=== PATIENT | male | born 1975 | race Two or more races ===

== ENCOUNTER 2024-07-21 01:27 | Emergency (ER) | payer OTHER ==
[~2024-07-21] VITALS: Ht 170.2 cm; Wt 158.5 kg
[2024-07-21 01:40] VITALS: PULSE 125; RESP 17; O2SAT 91
[2024-07-21] MEDS: levETIRAcetam 1000 mg/100ml 100 ML IV ONE (02:00)
--- NOTE | 2024-07-21 02:19 | ED.PDOC ---
HPI (NEURO) HPI Comments 49-year-old male came to ER via EMS for seizures. Per EMS, patient does have history of seizures, takes Keppra for it. Last seizure episode was May 2024. Patient had a witnessed seizure earlier today by family members, lasting approximately 30 seconds. 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 Information Source: Emergency Med Personnel Mode of Arrival: EMS Severity: Moderate Dizziness/Weakness Severity: Unable to do activities Headache Severity: Moderate Timing: Minutes Duration: Minutes Prehospital treatment: None Seizure Quality: Grand mal Headache Quality: Throbbing, Aching Headache Location: Generalized Weakness Location: Generalized Numbness Location: Generalized Seizure Location: Generalized Onset: With light exertion Circumstances: Spontaneous Symptoms: Weakness Before: Normal During: LOC After: Confusion History of: Seizure Disorder Modifying factors: Nothing Associated Signs and Symptoms: Altered Mental Status Past Medical History PAST MEDICAL HISTORY: Seizures Surgical History: Pt Confused Family History Family History: Pt Confused Social History Smoker: Pt Confused Alcohol: Pt Confused Drugs: Pt Confused Lives In: Home Unable to Obtain due to: Altered Mental Status, Other (Patient is postictal) Physical Exam General Appearance: No Apparent Distress, Normal HEENT: Normal ENT Inspection, Pharynx Normal, TMs Normal Neck: Full Range of Motion, Non-Tender, Normal, Normal Inspection Respiratory: Chest Non-Tender, Lungs Clear, No Accessory Muscle Use, No Respiratory Distress, Normal Breath Sounds Cardiovascular: No Edema, No JVD, No Murmur, No Gallop, Normal Peripheral Puls es, Regular Rate/Rhythm Breast Exam: Deferred Gastrointestinal: No Organomegaly, Non Tender, No Pulsatile Mass, Normal Bowel Sounds, Soft Genitalia: Deferred Pelvic: Deferred Rectal: Deferred Extremities: No calf tenderness, Normal capillary refill, Normal inspection, Normal range of motion, Non-tender, No pedal edema Musculoskeletal : Apperance: Normal Neurologic: Alert, straddle bug driver II-XII nml as Tested, No Motor Deficits, Normal Affect, Normal Mood, No Sensory Deficits Cerebellar Function: Normal Reflexes: Normal Skin: Dry, Normal Color, Warm Lymphatic: No Adenopathy Was a procedure done? Was a procedure done?: No Differential Diagnosis (SZ) Seizure: Psychogenic Seizure, CVA/TIA, Idiopathic, Encephalopathy, Epilepsy- Break Through, Epilepsy-Status X-Ray, Labs, Meds, VS Vital Signs Date Time Temp Pulse Resp B/P (MAP) Pulse Ox O2 Delivery O2 Flow Rate FiO2 07/21/24 17:00 100.3 07/21/24 16:00 100.3 95 20 125/86 (99) 92 100.3 07/21/24 14:00 86 13 127/86 (100) 94 07/21/24 12:45 91 07/21/24 12:00 98.8 88 17 141/78 (99) 92 98.8 07/21/24 10:00 100 15 131/82 (98) 98 07/21/24 09:00 91 18 142/84 (103) 96 07/21/24 08:00 101 18 128/83 (98) 95 07/21/24 07:19 114 94 Room Air* 0 21 07/21/24 07:19 114 18 129/85 (100) 94 07/21/24 07:19 99.4 99.4 07/21/24 07:00 107 26 141/84 (103) 95 07/21/24 05:00 114 23 100/72 (81) 96 07/21/24 01:49 124 07/21/24 01:47 98.7 67 18 131/85 (100) 96 07/21/24 01:40 98.7 125 17 116/64 (81) 91 98.7 07/21/24 01:40 125 17 91 Room Air* 0 21 Lab Test 07/21/24 16:55 07/21/24 11:55 07/21/24 06:37 Range/Units Influenza Type A Antigen Negative Negative Influenza Type B Antigen Negative Negative SARS-CoV-2 Antigen (Rapid) Negative NEGATIVE Troponin I High Sensitivity 10 9 </=54 ng/L White Blood Count 9.7 4.4-10.8 10^3/uL Red Blood Count 5.17 4.5-5.90 10^6/uL Hemoglobin 15.4 13.5-17.5 g/dL Hematocrit 46.1 41.0-53.0 % Mean Corpuscular Volume 89.3 80.0-100.0 fL Mean Corpuscular Hemoglobin 29.7 28.0-32.0 pg Mean Corpuscular Hemoglobin Concent 33.3 32.0-36.0 g/dL Red Cell Distribution Width 15.2 H 11.8-14.3 % Platelet Count 157 140-450 10^3/uL Mean Platelet Volume 9.0 6.9-10.8 fL Neutrophils (%) (Auto) 74.6 37.0-80.0 % Lymphocytes (%) (Auto) 9.8 L 10.0-50.0 % Monocytes (%) (Auto) 14.7 H 0.0-12.0 % Eosinophils (%) (Auto) 0.1 0.0-7.0 % Basophils (%) (Auto) 0.8 0.0-2.0 % Neutrophils # (Auto) 7.2 1.6-8.6 10 ^3/uL Lymphocytes # (Auto) 0.9 0.4-5.4 10 ^3/uL Monocytes # (Auto) 1.4 H 0-1.3 10 ^3/uL Eosinophils # (Auto) 0 0-0.8 10 ^3/uL Basophils # (Auto) 0.1 0-0.2 10 ^3/uL Nucleated Red Blood Cells 0.2 % Sodium Level 136 136-145 mmol/L Potassium Level 4.1 3.5-5.1 mmol/L Chloride Level 104 98-107 mmol/L Carbon Dioxide Level 20 20-31 mmol/L Anion Gap 12 5-15 Blood Urea Nitrogen 14 9-23 mg/dL Creatinine 1.78 H 0.700-1.30 mg/dL Glomerular Filtration Rate Calc 46 >90 mL/min BUN/Creatinine Ratio 7.9 L 10.0-20.0 Serum Glucose 113 H 74-106 mg/dL Calcium Level 9.5 8.7-10.4 mg/dL Current Medications Medications (Trade) Dose Ordered Sig/Daly Route Start Time Stop Time Status Last Admin Levetiracetam 100 ml @ 400 mls/hr ONCE ONCE IV 07/21/24 01:45 07/21/24 01:59 DC 07/21/24 02:00 Sodium Chloride 1,000 ml @ 1,000 mls/hr Q1H ONCE IV 07/21/24 05:30 07/21/24 06:29 DC 07/21/24 05:23 Lorazepam (Ativan Inj) 2 mg ONCE ONCE IV 07/21/24 06:30 07/21/24 06:31 DC 07/21/24 06:27 Sodium Chloride 1,000 ml @ 1,000 mls/hr Q1H ONCE IV 07/21/24 08:15 07/21/24 09:14 DC 07/21/24 08:52 Acetaminophen (Tylenol Tablet Or Capsule) 1,000 mg ONCE ONCE PO 07/21/24 16:30 07/21/24 16:31 DC 07/21/24 17:00 X-Ray, Labs, Meds, VS Comment Addendum by Dr. Earnestine Hairston: 49-year-old male with history of seizures on Keppra endorsed to me by Dr. Jean to re-evaluate after IV Keppra. Patient had a 2nd seizure during the administration of Keppra. This resolved with IV Ativan. On re-evaluation patient was noted to be febrile at 100.3. He also reported cough, congestion. CBC, basic metabolic panel and troponins were ordered and were remarkable for creatinine of 1.78. Influenza and COVID tests were negative. On re-evaluation, patient is alert, oriented, states he feels better, and is comfortable being discharged home. Temperature is normal. Hospitalization was considered, however patient had rapid improvement of his symptoms with treatment in the ED, and I no longer feel hospitalization is necessary. Patient appears stable for discharge with close outpatient follow up with his neurologist. I will prescribe antibiotics for possible bacterial re spiratory infection/bronchitis. Rx Augmentin, Tylenol, Tessalon Time of 1ST Reevaluation: 02:10 Reevaluation 1ST: Unchanged Time of 2ND Reevaluation: 17:58 Reevaluation 2ND: Improved Patient Education/Counseling: Diagnosis, Treatment Family Education/Counseling: No Family Present Departure 1 Departure Time of Disposition: 17:58 Impression: Primary Impression: Seizure Additional Impression: Acute cough Disposition: 01 HOME / SELF CARE / HOMELESS Condition: Stable Additional Instructions: Your blood tests were unremarkable. Your chest x-ray was normal. Your test for COVID and influenza were negative. I have prescribed antibiotics, cough medication, and medication to prevent fever. Follow up with your neurologist in 1-2 days. e-Prescriptions Benzonatate (Benzonatate) 200 Mg Cap 1 CAP PO Q8HP PRN, #30 CAP prn cough Prov: BELLA ZIMMERMAN MD 07/21/24 Acetaminophen (Tylenol Extra Strength) 500 Mg Tab 1000 MG PO Q6HP PRN, #30 TAB prn fever or pain Prov: BELLA ZIMMERMAN MD 07/21/24 Amoxicillin & Pot Clavulanate (AUGMENTIN TABLET) 875 Mg Tb 875 MG PO BID for 10 Days, #20 TAB Prov: BELLA ZIMMERMAN MD 07/21/24 Discharged With: Relative (Father) Critical Care Note Critical Care Time?: Yes (35 min-critical care time only) Stability Stability form required: No Heart Score Heart Score: Heart Score Response (Comments) Value History N/A 0 EKG N/A 0 Age N/A 0 Risk Factors N/A 0 Troponin N/A 0 Total 0 I personally scribed for EMERSON JEAN MD ([email or web address]) on 07/21/24 at 02:18. Electronically submitted by Jimi Whitehead ([facility]). EMERSON JEAN MD Jul 21, 2024 02:18 BELLA ZIMMERMAN MD Jul 21, 2024 18:03
[2024-07-21] MEDS: SODIUM CHLORIDE 0.9% 1,000 ML IV ONE ×2 (05:23→08:52)
[2024-07-21] MEDS: LORazepam 2MG/ML-1ML VIAL ONE (06:27)
[2024-07-21] MEDS: LORazepam 2MG/ML-1ML VIAL IV ONE (06:27)
[2024-07-21 07:09] LABS: Chloride 104 mmol/L (98-107); Potassium 4.1 mmol/L (3.5-5.1); Sodium 136 mmol/L (136-145)
[2024-07-21 07:10] LABS: Anion Gap 12 (5-15); Calcium 9.5 mg/dL (8.7-10.4)
[2024-07-21 07:12] LABS: Basophils # (auto) 0.1 10 ^3/uL (0-0.2); Basophils % (auto) 0.8 % (0.0-2.0); Eosinophils # (auto) 0 10 ^3/uL (0-0.8); Eosinophils % (auto) 0.1 % (0.0-7.0); Hematocrit 46.1 % (41.0-53.0); Hemoglobin 15.4 g/dL (13.5-17.5); Lymphocytes # (auto) 0.9 10 ^3/uL (0.4-5.4); Lymphocytes % (auto) 9.8 % (10.0-50.0); Mean Corpuscular Hemoglobin 29.7 pg (28.0-32.0); Mean Corpuscular Hgb Conc. 33.3 g/dL (32.0-36.0); Mean Corpuscular Volume 89.3 fL (80.0-100.0); Monocytes # (auto) 1.4 10 ^3/uL (0-1.3); Monocytes % (auto) 14.7 % (0.0-12.0); Neutrophils # (auto) 7.2 10 ^3/uL (1.6-8.6); Neutrophils % (auto) 74.6 % (37.0-80.0); Nucleated Red Blood Cells % 0.2 %; Platelet Count (auto) 157 10^3/uL (140-450); Red Blood Cells 5.17 10^6/uL (4.5-5.90); Red Cell Distribution Width 15.2 % (11.8-14.3); White Blood Cell 9.7 10^3/uL (4.4-10.8)
[2024-07-21 07:15] LABS: BUN/Creatinine Ratio 7.9 (10.0-20.0); Blood Urea Nitrogen 14 mg/dL (9-23)
[2024-07-21 07:18] LABS: Carbon Dioxide 20 mmol/L (20-31); Glucose 113 mg/dL (74-106)
[2024-07-21 07:19] VITALS: PULSE 114; O2SAT 94
[2024-07-21] MEDS: ACETAMINOPHEN 500 MG TAB or CAP PO ONE (17:00)
--- NOTE | 2024-07-21 17:16 | DVH ---
CHEST RADIOGRAPH Indication: cough fever Technique: Single frontal view of the chest was obtained Comparison: None FINDINGS: Lines and Tubes: None Lungs: Clear Pleura: No effusion. No pneumothorax. Cardiomediastinal contours: Unremarkable Bones: Unremarkable IMPRESSION: 1. Clear lungs.
[2024-07-21 17:41] LABS: COVID19 ANTIGEN SOFIA FIA NEGATIVE (NEGATIVE); Rapid Influenza A Negative (Negative); Rapid Influenza B Negative (Negative)
[2024-07-21] MEDS ORDERED: AUG875T PO (18:02)
[2024-07-21] MEDS ORDERED: ACET-1304 PO (18:02)
[2024-07-21] MEDS ORDERED: BENZ200C64 PO (18:02)
[2024-07-21 19:30] VITALS: BP 127/78; PULSE 93; RESP 18; TEMP 98.7; O2SAT 95
--- NOTE | 2024-07-23 14:46 | ECG ---
[facility] Test Date: 2024-07-21 Test Time: 01:49:21 Pat Name: KAILEE ABEL Department: ed Room: Gender: M [employer] Illustrator: [place] : 1975 Requested By: EMERSON JEAN Order Number: [id number] Reading MD: Measurements Intervals [place] Rate: 124 P: 33 IL: 167 QRS: -69 QRSD: 107 T: 69 QT: 297 QTc: 427 Interpretive Statements Sinus tachycardia Incomplete RBBB and LAFB Low voltage, precordial leads Consider anterior infarct ST elevation, consider inferior injury Please click the below link to view image of tracing.
== END 2024-07-21 20:21 | disposition home or self-care (01) ==
LOC: EDBD 01:27 → ER 01:27
DX: R56.9 Unspecified convulsions (principal); R41.0 Disorientation, unspecified; R05.9 Cough, unspecified; F17.200 Nicotine dependence, unspecified, uncomplicated; Z20.822 Contact with and (suspected) exposure to COVID-19
CPT/HCPCS: 36415; 71045; 80048; 84484; 85025; 87426; 87804; 93005; 96361; 96374; 96375; 99285; J1953; J2060; J7030; 96365

== ENCOUNTER 2024-08-28 17:44 | Inpatient (IN) | payer OTHER ==
[~2024-08-28] VITALS: Ht 167.6 cm; Wt 136.4 kg
[~2024-08-28 17:44] MED LIST: ACET-1304 PO; AUG875T PO; BENZ200C64 PO
[2024-08-28 18:12] VITALS: PULSE 96; RESP 13; O2SAT 94
--- NOTE | 2024-08-28 18:27 | ED.PDOC ---
HPI (NEURO) HPI Comments HPI: Poor Historian. 49-year-old male brought in by ambulance from home status post witnessed seizure. No reported trauma. Patient is on Keppra. Patient was postictal afterwards and still somewhat not back to his baseline. On my initial evaluation patient is able to state his name and follows commands and knows that he has history of seizure disorder and is on medications. There is no apparent oral trauma or incontinence. Denies any pain anywhere in his body. Patient was on Coumadin for unknown reason. Past Medcial History: Epilepsy, hypertension Past Surgical History: REVIEW OF SYSTEMS: CONSTITUTIONAL: Denies acute: fever, diaphoresis, chills, HEAD: Denies acute: headache, photophobia Eyes: Denies acute: Double vision, vision loss, eye pain, eye discharge. EARS: Denies acute: tinnitus, hearing loss, ear discharge, ear pain, THROAT: Denies acute: sore throat, swelling, difficulty swallowing , pain with swallowing, change in voice. NECK: Denies acute: neck pain, neck swelling, stiff neck. HEART: Denies acute : chest pain, palpitations, LUNGS: Denies acute: SOB, wheezing, cough, hemoptysis ABDOMEN: Denies acute: abdominal pain, Nausea, Vomiting, diarrhea, melena , hematemesis, hematochezia SKIN: Denies acute: rash, redness, lesions, itchiness. EXTREMITIES: Denies acute: calf pain, numbness, tingling, weakness, denies pain in extremity. Denies acute: Low back pain. Neuro: Denies acute: focal neurological deficit, motor or sensory focal neurological deficit, loss of bowel or bladder function, cauda equina like symptoms. : Denies acute: dysuria, hematuria, flank pain, increase in urinary frequency. PSYCH: Denies acute: hallucination, suicidal ideation, homicidal ideation. PHYSICAL EXAM: General: no acute distress, awake and alert. Head: normocephalic, atraumatic. Neck: supple, trachea is midline, no swelling. Cervical spine: Palpation of the posterior midline of the cervical spine reveals no focal swelling, erythema, focal tenderness to palpation. Patient has normal range of motion. Palpation of the remainder of the thoracic and lumbar spine reveals no focal tenderness to palpation or swelling. Throat: Normal phonation. No oral trauma, no obstruction, no drooling. Eyes:, no erythema, no purulent discharge, no proptosis, no icterus. Heart: regular rate, regular rhythm, no significant murmur appreciated. Lungs: no apparent respiratory distress, Able to speak in full sentences. No wheezing, no rhonchi, no crackles. No stridors Clear to auscultation bilaterally. Abdomen: non tender to palpation, non distended, soft, no guarding, no rebound, + bowel sounds. Obese. Neuro: Awake, Alert, oriented to name, self, situation, follows commands Speech is normal. Skin: no petechia, no purpura, no cyanosis, non-pale, not jaundice. Lower extremities: --no - Pitting edema no deformity, no focal swelling, no calf TTP. Makes eye contact. moves all four extremities. Face: no apparent facial droop. Stroke: finger to nose cerebellar testing is intact. No pronator drift. PERRLA, EOM-I No nystagmus. No nuchal rigidity, Kernig's sign, Brudzinski's sign, no meningeal signs. Chief Complaint: Seizure Time Seen by MD: 18:00 Reviewed Notes: Nurses Notes Information Source: Patient Mode of Arrival: EMS Past Medical History PAST MEDICAL HISTORY: Seizures Surgical History: Pt Confused Family History Family History: Pt Confused Social History Smoker: Pt Confused Alcohol: Pt Confused Drugs: Pt Confused Lives In: Home X-Ray, Labs, Meds, VS Vital Signs Date Time Temp Pulse Resp B/P (MAP) Pulse Ox O2 Delivery O2 Flow Rate FiO2 08/28/24 20:00 95 22 138/101 (113) 98 08/28/24 18:12 96 13 154/86 (108) 94 08/28/24 18:12 96 13 94 Nasal Cannula* 2 28 08/28/24 17:47 98.5 100 14 119/65 (83) 96 Lab Test 08/28/24 20:05 08/28/24 19:43 08/28/24 18:34 Range/Units Sodium Level 139 136-145 mmol/L Potassium Level 4.4 3.5-5.1 mmol/L Chloride Level 107 98-107 mmol/L Carbon Dioxide Level 25 20-31 mmol/L Anion Gap 7 5-15 Blood Urea Nitrogen 11 9-23 mg/dL Creatinine 1.36 H 0.700-1.30 mg/dL Glomerular Filtration Rate Calc 63 >90 mL/min BUN/Creatinine Ratio 8.1 L 10.0-20.0 Serum Glucose 101 74-106 mg/dL Calcium Level 9.8 8.7-10.4 mg/dL Magnesium Level 1.7 1.6-2.6 mg/dL Total Bilirubin 0.4 0.2-1.0 mg/dL Aspartate Amino Transferase (AST) 28 13-40 U/L Alanine Aminotransferase (ALT) 43 H 7-40 U/L Alkaline Phosphatase 56 46-116 U/L Total Protein 7.2 5.7-8.2 g/dL Albumin 4.3 3.2-4.8 g/dL Troponin I High Sensitivity 11 7 </=54 ng/L Plasma/Serum Blood Alcohol Pending White Blood Count 11.6 H 4.4-10.8 10^3/uL Red Blood Count 4.85 4.5-5.90 10^6/uL Hemoglobin 14.4 13.5-17.5 g/dL Hematocrit 42.7 41.0-53.0 % Mean Corpuscular Volume 88.0 80.0-100.0 fL Mean Corpuscular Hemoglobin 29.7 28.0-32.0 pg Mean Corpuscular Hemoglobin Concent 33.7 32.0-36.0 g/dL Red Cell Distribution Width 15.6 H 11.8-14.3 % Platelet Count 223 140-450 10^3/uL Mean Platelet Volume 9.1 6.9-10.8 fL Neutrophils (%) (Auto) 83.8 H 37.0-80.0 % Lymphocytes (%) (Auto) 9.2 L 10.0-50.0 % Monocytes (%) (Auto) 5.6 0.0-12.0 % Eosinophils (%) (Auto) 0.5 0.0-7.0 % Basophils (%) (Auto) 0.9 0.0-2.0 % Neutrophils # (Auto) 9.7 H 1.6-8.6 10 ^3/uL Lymphocytes # (Auto) 1.1 0.4-5.4 10 ^3/uL Monocytes # (Auto) 0.7 0-1.3 10 ^3/uL Eosinophils # (Auto) 0.1 0-0.8 10 ^3/uL Basophils # (Auto) 0.1 0-0.2 10 ^3/uL Nucleated Red Blood Cells 0.1 % Prothrombin Time 14.6 H 9.3-11.8 sec Prothrombin Time INR 1.43 H 0.9-1.15 Activated Partial Thromboplast Time 29.9 24.5-34.5 SEC Lactic Acid Level 2.0 0.4-2.0 mmol/L Levetiracetam Level Pending Current Medications Medications (Trade) Dose Ordered Sig/Daly Route Start Time Stop Time Status Last Admin Sodium Chloride 1,000 ml @ 1,000 mls/hr Q1H ONCE IV 08/28/24 18:30 08/28/24 19:29 DC 08/28/24 18:30 Levetiracetam 100 ml @ 400 mls/hr ONCE ONCE IV 08/28/24 18:30 08/28/24 18:44 DC 08/28/24 18:41 Lorazepam (Ativan Inj) 2 mg ONCE ONCE IV 08/28/24 19:15 08/28/24 19:16 DC 08/28/24 19:11 Time of 1ST Reevaluation: 22:00 (The case was discussed with the admitting team (HPI, physical exam, labs and diagnostic tests that were available at the time of disposition, ED course, treatment plan) on the phone. They agreed to admit the patient to their service and assume care of this patient from this point forward. --- Fernando) Reevaluation 1ST: Improved Patient Education/Counseling: Diagnosis, Treatment Family Education/Counseling: No Family Present Departure 1 Departure Time of Disposition: 19:21 Impression: Primary Impression: Seizure Disposition: ADMITTED INPATIENT Admit to: Tele Condition: Guarded Discharged With: Self ADÁN BAUMANN DO Aug 28, 2024 18:27
[2024-08-28] MEDS: SODIUM CHLORIDE 0.9% 1,000 ML IV ONE (18:30)
[2024-08-28] MEDS: levETIRAcetam 1000 mg/100ml 100 ML IV ONE (18:41)
[2024-08-28 18:55] LABS: Basophils # (auto) 0.1 10 ^3/uL (0-0.2); Basophils % (auto) 0.9 % (0.0-2.0); Eosinophils # (auto) 0.1 10 ^3/uL (0-0.8); Eosinophils % (auto) 0.5 % (0.0-7.0); Hematocrit 42.7 % (41.0-53.0); Hemoglobin 14.4 g/dL (13.5-17.5); Lymphocytes # (auto) 1.1 10 ^3/uL (0.4-5.4); Lymphocytes % (auto) 9.2 % (10.0-50.0); Mean Corpuscular Hemoglobin 29.7 pg (28.0-32.0); Mean Corpuscular Hgb Conc. 33.7 g/dL (32.0-36.0); Monocytes # (auto) 0.7 10 ^3/uL (0-1.3); Monocytes % (auto) 5.6 % (0.0-12.0); Neutrophils # (auto) 9.7 10 ^3/uL (1.6-8.6); Neutrophils % (auto) 83.8 % (37.0-80.0); Nucleated Red Blood Cells % 0.1 %; Platelet Count (auto) 223 10^3/uL (140-450); Red Blood Cells 4.85 10^6/uL (4.5-5.90); Red Cell Distribution Width 15.6 % (11.8-14.3); White Blood Cell 11.6 10^3/uL (4.4-10.8)
[2024-08-28 19:06] LABS: INR 1.43 (0.9-1.15); Partial Thromboplastin Time 29.9 SEC (24.5-34.5); Prothrombin Time 14.6 sec (9.3-11.8)
[2024-08-28] MEDS: LORazepam 2MG/ML-1ML VIAL IV ONE (19:11)
[2024-08-28] MEDS: LORazepam 2MG/ML-1ML VIAL ONE (19:17)
--- NOTE | 2024-08-28 19:18 | DVH ---
CLINICAL HISTORY: seizure TECHNIQUE: Helical imaging carried out from skull base to vertex without intravenous contrast. This e xam was performed according to our departmental dose optimization program. Up-to-date CT equipment an d radiation dose reduction techniques are utilized as appropriate. CTDIVol: 61.42 mGy DLP: 1230.13 mGy-cm WID: COMPARISON: None FINDINGS: The ventricles and subarachnoid spaces are normal in size and configuration. There is no midline angelito ft or mass effect. The [place] white matter interfaces are maintained. The basal cisterns are patent. Th ere is no evidence of acute intracranial hemorrhage or extra-axial fluid collection. The mastoid air cells and visualized paranasal sinuses are well-aerated. IMPRESSION: No acute intracranial abnormality.
[2024-08-28 20:00] VITALS: PULSE 79; RESP 12; O2SAT 96
[2024-08-28 20:46] LABS: Albumin 4.3 g/dL (3.2-4.8); Alkaline Phosphatase 56 U/L (46-116); Anion Gap 7 (5-15); Aspartate Aminotransferase 28 U/L (13-40); BUN/Creatinine Ratio 8.1 (10.0-20.0); Bilirubin, Total 0.4 mg/dL (0.2-1.0); Blood Urea Nitrogen 11 mg/dL (9-23); Calcium 9.8 mg/dL (8.7-10.4); Carbon Dioxide 25 mmol/L (20-31); Chloride 107 mmol/L (98-107); Glucose 101 mg/dL (74-106); Magnesium 1.7 mg/dL (1.6-2.6); Potassium 4.4 mmol/L (3.5-5.1); Sodium 139 mmol/L (136-145); Total Protein 7.2 g/dL (5.7-8.2)
[2024-08-28 20:51] LABS: Alanine Aminotransferase 43 U/L (7-40)
[2024-08-28] MEDS ORDERED: NITROGLYCERIN 0.4 MG SL TAB SL PRN (22:30)
[2024-08-28] MEDS ORDERED: LORazepam 2MG/ML-1ML VIAL IV PRN (23:00)
--- NOTE | 2024-08-28 23:36 | DVH ---
EXAM: XY CHEST PORTABLE CLINICAL HISTORY: uncontrolled seizures, AMS TECHNIQUE: Single AP view of the chest WID: COMPARISON: XY CHEST XRAY 1 VIEW on DOS: 07/21/24 FINDINGS: Lines and tubes: None Chest: The heart size and pulmonary vasculature is within normal limits. No pleural effusion, pneumothorax, or consolidation. Linear bibasilar scarring or atelectasis The osseous structures are grossly intact. IMPRESSION: No acute cardiopulmonary abnormality.
--- NOTE | 2024-08-29 01:28 | DVHHP2 ---
Admitting Diagnosis: Uncontrolled seizures History of Present Illness HPI 49 y.o. male with seizure disorder and HTN was brought to the ER after having a seizure. Per EMS, patient takes Keppra. On arrival to the ER patient was still postictal and confused. He was given IV Keppra and then had another seizure episode. Patient was given IV Ativan. Patient was a poor historian and has not provided any addition information. Home Meds Active Scripts Benzonatate (Benzonatate) 200 Mg Cap, 1 CAP PO Q8HP PRN, #30 CAP prn cough Prov:BELLA ZIMMERMAN MD 07/21/24 Acetaminophen (Tylenol Extra Strength) 500 Mg Tab, 1000 MG PO Q6HP PRN, #30 TAB prn fever or pain Prov:BELLA ZIMMERMAN MD 07/21/24 Amoxicillin & Pot Clavulanate (AUGMENTIN TABLET) 875 Mg Tb, 875 MG PO BID for 10 Days, #20 TAB Prov:BELLA ZIMMERMAN MD 07/21/24 Past Medical History Cardiac: HTN Central Nervous System: Seizure Review of Systems Comments patient was confused H&P Exam Vital Signs Vital Signs Date Time Temp Pulse Resp B/P (MAP) Pulse Ox O2 Delivery O2 Flow Rate FiO2 08/29/24 00:00 85 12 115/81 (92) 95 08/28/24 20:00 Nasal Cannula* 2 28 08/28/24 17:47 98.5 General Appeara: Obese Head Exam: Normal inspection Neck Exam: Non-tender Eye Exam: bilateral eye PERRL, bilateral eye EOMI Pulmonary/Respiratory: Lungs clear Cardiovascular/Chest: Regular rate Abdominal Exam: Soft, No tenderness Neuro/Mental St: Disoriented, Lethargic Labs/Xrays Labs Test 08/28/24 20:05 08/28/24 19:43 08/28/24 18:34 Range/Units Sodium Level 139 136-145 mmol/L Potassium Level 4.4 3.5-5.1 mmol/L Chloride Level 107 98-107 mmol/L Carbon Dioxide Level 25 20-31 mmol/L Anion Gap 7 5-15 Blood Urea Nitrogen 11 9-23 mg/dL Creatinine 1.36 H 0.700-1.30 mg/dL Glomerular Filtration Rate Calc 63 >90 mL/min BUN/Creatinine Ratio 8.1 L 10.0-20.0 Serum Glucose 101 74-106 mg/dL Calcium Level 9.8 8.7-10.4 mg/dL Magnesium Level 1.7 1.6-2.6 mg/dL Total Bilirubin 0.4 0.2-1.0 mg/dL Aspartate Amino Transferase (AST) 28 13-40 U/L Alanine Aminotransferase (ALT) 43 H 7-40 U/L Alkaline Phosphatase 56 46-116 U/L Total Protein 7.2 5.7-8.2 g/dL Albumin 4.3 3.2-4.8 g/dL Troponin I High Sensitivity 11 </=54 ng/L Plasma/Serum Blood Alcohol 3.2 <10 mg/dL White Blood Count 11.6 H 4.4-10.8 10^3/uL Red Blood Count 4.85 4.5-5.90 10^6/uL Hemoglobin 14.4 13.5-17.5 g/dL Hematocrit 42.7 41.0-53.0 % Mean Corpuscular Volume 88.0 80.0-100.0 fL Mean Corpuscular Hemoglobin 29.7 28.0-32.0 pg Mean Corpuscular Hemoglobin Concent 33.7 32.0-36.0 g/dL Red Cell Distribution Width 15.6 H 11.8-14.3 % Platelet Count 223 140-450 10^3/uL Mean Platelet Volume 9.1 6.9-10.8 fL Neutrophils (%) (Auto) 83.8 H 37.0-80.0 % Lymphocytes (%) (Auto) 9.2 L 10.0-50.0 % Monocytes (%) (Auto) 5.6 0.0-12.0 % Eosinophils (%) (Auto) 0.5 0.0-7.0 % Basophils (%) (Auto) 0.9 0.0-2.0 % Neutrophils # (Auto) 9.7 H 1.6-8.6 10 ^3/uL Lymphocytes # (Auto) 1.1 0.4-5.4 10 ^3/uL Monocytes # (Auto) 0.7 0-1.3 10 ^3/uL Eosinophils # (Auto) 0.1 0-0.8 10 ^3/uL Basophils # (Auto) 0.1 0-0.2 10 ^3/uL Nucleated Red Blood Cells 0.1 % Prothrombin Time 14.6 H 9.3-11.8 sec Prothrombin Time INR 1.43 H 0.9-1.15 Activated Partial Thromboplast Time 29.9 24.5-34.5 SEC Lactic Acid Level 2.0 0.4-2.0 mmol/L Assessment/Plan Problem List: (1) Uncontrolled seizures Plan MRI, neurology consult, Keppra IV, Ativan prn Plan discussed with: Patient [place] MD Aug 29, 2024 01:28
[2024-08-29 05:45] LABS: Urine Bacteria None Seen /hpf (None Seen)
[2024-08-29 05:53] LABS: Urine Blood 1+ /uL (Negative); Urine Clarity Clear (Clear); Urine Color Yellow (Yellow); Urine Mucus FEW (None Seen); Urine Protein, UAD Negative (Negative); Urine Specific Gravity 1.023 (1.001-1.035); Urine Squamous Epithelial Cell None Seen /hpf (<5); Urine Urobilinogen Normal (Negative); Urine WBC 1 /HPF (0-3)
[2024-08-29 07:17] LABS: Basophils # (auto) 0 10 ^3/uL (0-0.2); Basophils % (auto) 0.4 % (0.0-2.0); Eosinophils # (auto) 0 10 ^3/uL (0-0.8); Eosinophils % (auto) 0.5 % (0.0-7.0); Hematocrit 42.7 % (41.0-53.0); Hemoglobin 14.4 g/dL (13.5-17.5); Lymphocytes # (auto) 1.4 10 ^3/uL (0.4-5.4); Lymphocytes % (auto) 14.2 % (10.0-50.0); Mean Corpuscular Hemoglobin 29.8 pg (28.0-32.0); Mean Corpuscular Hgb Conc. 33.8 g/dL (32.0-36.0); Mean Corpuscular Volume 88.2 fL (80.0-100.0); Monocytes # (auto) 0.6 10 ^3/uL (0-1.3); Monocytes % (auto) 6.4 % (0.0-12.0); Neutrophils # (auto) 7.7 10 ^3/uL (1.6-8.6); Neutrophils % (auto) 78.5 % (37.0-80.0); Nucleated Red Blood Cells % 0.1 %; Platelet Count (auto) 165 10^3/uL (140-450); Red Blood Cells 4.84 10^6/uL (4.5-5.90); Red Cell Distribution Width 15.6 % (11.8-14.3); White Blood Cell 9.8 10^3/uL (4.4-10.8)
[2024-08-29 07:30] VITALS: PULSE 70; RESP 16; O2SAT 98
[2024-08-29 07:32] LABS: Alanine Aminotransferase 37 U/L (7-40); Alkaline Phosphatase 53 U/L (46-116); Anion Gap 8 (5-15); Aspartate Aminotransferase 23 U/L (13-40); BUN/Creatinine Ratio 10.2 (10.0-20.0); Bilirubin, Total 0.6 mg/dL (0.2-1.0); Blood Urea Nitrogen 13 mg/dL (9-23); Calcium 9.4 mg/dL (8.7-10.4); Carbon Dioxide 25 mmol/L (20-31); Chloride 106 mmol/L (98-107); Glucose 96 mg/dL (74-106); Potassium 4.1 mmol/L (3.5-5.1); Sodium 139 mmol/L (136-145)
[2024-08-29 07:33] LABS: Total Protein 6.8 g/dL (5.7-8.2)
--- NOTE | 2024-08-29 09:43 | DVH ---
EXAMINATION: MRI BRAIN HEAD WO CONTRAST INDICATION: Seizures COMPARISON: CT scan of the head performed on 08/28/2024. TECHNIQUE: Multiplanar, multisequence magnetic resonance imaging of the brain was performed without the use of i ntravenous contrast. FINDINGS: No evidence of acute or remote infarct. No intracranial hemorrhage. No mass effect. The ventricles and sulci are normal in size for age. Clear basal cisterns. Flow voids in the major intracranial vessels are maintained. No abnormality of the orbits. Paranasal sinuses and mastoid air cells are clear. No abnormality of the visualized osseous structures and extracranial soft tissues. IMPRESSION: 1. No evidence of acute intracranial abnormality.
[2024-08-29] MEDS: levETIRAcetam 500 mg/100ml 100 ML IV SCH (11:14)
[2024-08-29 12:00] VITALS: TEMP 98.5
[2024-08-29] MEDS ORDERED: LACO50TA2 PO (15:56)
[2024-08-29] MEDS ORDERED: LEVE750T3 PO (15:59)
[2024-08-29 16:00] VITALS: BP 130/72; PULSE 81; RESP 18; O2SAT 98
[2024-08-29] MEDS ORDERED: LAMO250T2 OR (16:00)
--- NOTE | 2024-08-29 19:35 | DVHINCON2 ---
Date of service: Aug 29, 2024 History of Present Illness Patient was not seen Mr. Augustine is a left-handed gentleman with a history of obesity, atrial fibrillation, seizure disorder, JEANNINE on CPAP, the patient came to the [facility] on 03/27/2021 for seizure activity. At this time, he is alert and fully oriented, he reports complete amnesia about the seizure. He has been in this hospital previously keeps different medical record number: M R #:[id number], [id number] I saw him on 11/21/2016, 04/14/17, 07/16/18, 08/10/2018, 12/11/2018, 01/13/2019, 02/17/2019, 05/19/2020, 09/18/2022, 03/26/2023 for seizure activity, . There was atypical features in the seizure of 02/17/2019 He remembers sleeping in the bed, but the next december was waking up at home with his parents, confused, and he said he had a seizure, but he does not know what the symptoms, I see dried blood in the mouth and that he report a small laceration in the left lip He has seizure disorder since age of [age] years old, according his description, he has both grand mal seizure and partial complex seizure, and he is on Keppra 1500 mg twice daily, lamotrigine 200 mg twice daily and he reports a good compliance (Dr. Benji Espitia mentioned noncompliance on 02/22/2021). The last grand mal seizure before today was 2-3 months ago, and he reports have seizure once every other month He also has partial complex seizure, but this time he cannot go home after he has it or when the last time he had one Depakote, 11/30/16:26, 04/14/17:53.7, 09/26/17: 54, 01/12/2019: 4, 05/2019: <3 Keppra, 05/25: 17.9, 06/25: 32.7, 07/25: 8.3, 12/03/20: 8 Lamictal, 11/15/18: 504. 05/24/19: 4 UDS, 12/10/2018: Negative, 01/12/2019: Negative CBC, 03/27/21: Unremarkable CMP, 03/27/21: Unremarkable TG/CH OL/LDL/HDL, 11/21/16:128/155/120/29, 02/2018:218/170/120/22, 12/2018: 194/151/108/29 Vitamin B12, 12/2018: 517 Folic acid, 02/2019: 11.62 TSH, 02/2019: 1.5 EEG, 11/20/16: Normal EEG, EEG, 03/06/18: Normal 1 hour sleep deprived EEG, 07/06/2020: Normal NCV/EMG, legs, 03/2018: Unremarkable CT head, 01/12/2019: 1. No significant change. 2. Mild generalized cerebral volume loss without evidence of intracranial masses hemorrhages or midline shift CT head, 03/27/21: Unremarkable CT brain without IV contrast Obesity, atrial fibrillation, seizure disorder, obstructive sleep apnea on CPAP, but he doesn't remember the pressure None Hypertension, diabetes He was a tobacco smoker, no history of alcohol recreational substances abuse As above, the other systems are negative GENERAL EXAM: General: the patient is well developed and nourished. No acute distress. HEENT: Normocephalic, neck is supple, no carotid bruits. No mass. RESPIRATORY: Normal respiratory effort with symmetrical lung expansion. Lungs clear to auscultation. CARDIOVASCULAR: Regular rate and rhythm with no murmurs. S1, S2. ABDOMEN: Soft, nontender, normal bowel sound NEUROLOGICAL: MENTAL STATUS: Awake and alert. Oriented to person, place, time and general circumstances. Able to give personal history SPEECH, LANGUAGE, HIGHER CORTICAL FUNCTION: no aphasia or dysathria. CRANIAL NERVES: #2: Intact visual pino to confrontation. The optic discs were sharp #3,4,6: Pupils are equal, round and reactive. EOMs full and conjugate. No nystagmus. #5: Facial sensation intact in all three divisions bilaterally. Mandibular strength intact. #7: Facial muscles symmetrical and strength intact. #8: Hearing grossly normal to voice. #9,10: Uvula and soft palate rise in the midline. Swallow and voice are normal. #11: Trapezius and sternomastoid strength intact bilaterally. #12: Tongue midline. No fasciculations or atrophy. SENSATION: Sensation to touch and pinprick is normal. MOTOR: Normal tone in the upper and lower extremity. Normal muscle bulk. No fasciculations. No abnormal movements or posturing. Muscle strength of the major groups in the upper extremities is 5/5. Muscle strength of the major groups in the lower extremities is 5/5. REFLEXES: Deep tendon reflexes are symmetrical. No pathological reflexes. CEREBELLAR/COORDINATION: Finger to nose are normal bilaterally. GAIT/STATION: deferred. Seizure breakthrough, likely epileptic Grand mal seizure Grand mal seizure on 02/17/2019 is not typical to epileptic seizure Partial complex seizure A fib Obesity Obstructive sleep apnea on CPAP ? Poor compliance He doesn't drive Plan/Recommendation Monitoring Supportive treatment Lamictal level Keppra level No change in his current seizure medications: Lamictal 200mg Bid, Keppra 1500mg Bid Ativan for seizure breakthrough CPAP 10 cmH2O Weight control Diet and lifestyle discussed Follow with me on discharge Follow his family doctor on discharge Allergies: Coded Allergies: Codeine (Verified Allergy, Unknown, 07/21/24) Ibuprofen (Verified Allergy, Unknown, 07/21/24) Home Meds Active Scripts Lamotrigine (LAMOTRIGINE ER) 250 Mg Tab, 250 MG OR BID for 30 Days, #60 TAB 1 Refill Prov:JANETTE LOBATO DO 08/29/24 Levetiracetam (Levetiracetam) 750 Mg Tab, 1500 MG PO BID for 30 Days, #120 TAB 2 Refills Prov:JANETTE LOBATO DO 08/29/24 Benzonatate (Benzonatate) 200 Mg Cap, 1 CAP PO Q8HP PRN, #30 CAP prn cough Prov:BELLA ZIMMERMAN MD 07/21/24 Acetaminophen (Tylenol Extra Strength) 500 Mg Tab, 1000 MG PO Q6HP PRN, #30 TAB prn fever or pain Prov:BELLA ZIMMERMAN MD 07/21/24 Amoxicillin & Pot Clavulanate (AUGMENTIN TABLET) 875 Mg Tb, 875 MG PO BID for 10 Days, #20 TAB Prov:BELLA ZIMMERMAN MD 07/21/24 Reported Medications Lacosamide (Vimpat) 50 Mg Tab, 50 MG PO BID for 30 Days, #60 TAB 1 Refill 08/29/24 Current Medications Current Medications Medications (Trade) Dose Ordered Sig/Daly Route PRN Reason Start Time Stop Time Status Last Admin Nitroglycerin (Ntrostat Sublingual) 0.4 mg Q5MINP PRN SL FOR CHEST PAIN 08/28/24 22:30 Levetiracetam 100 ml @ 400 mls/hr BID IV 08/29/24 10:00 08/29/24 11:14 Lorazepam (Ativan Inj) 1 mg Q5MINP PRN IV SEIZURES 08/28/24 23:00 Vital Signs Vital Signs Date Time Temp Pulse Resp B/P (MAP) Pulse Ox O2 Delivery O2 Flow Rate FiO2 08/29/24 16:00 81 18 130/72 (91) 98 08/29/24 12:00 98.5 98.5 08/29/24 07:30 Room Air* 0 21 Labs/Diagnostic Data Labs Test 08/29/24 06:29 08/29/24 05:38 08/28/24 20:05 08/28/24 19:43 Range/Units White Blood Count 9.8 4.4-10.8 10^3/uL Red Blood Count 4.84 4.5-5.90 10^6/uL Hemoglobin 14.4 13.5-17.5 g/dL Hematocrit 42.7 41.0-53.0 % Mean Corpuscular Volume 88.2 80.0-100.0 fL Mean Corpuscular Hemoglobin 29.8 28.0-32.0 pg Mean Corpuscular Hemoglobin Concent 33.8 32.0-36.0 g/dL Red Cell Distribution Width 15.6 H 11.8-14.3 % Platelet Count 165 140-450 10^3/uL Mean Platelet Volume 8.8 6.9-10.8 fL Neutrophils (%) (Auto) 78.5 37.0-80.0 % Lymphocytes (%) (Auto) 14.2 10.0-50.0 % Monocytes (%) (Auto) 6.4 0.0-12.0 % Eosinophils (%) (Auto) 0.5 0.0-7.0 % Basophils (%) (Auto) 0.4 0.0-2.0 % Neutrophils # (Auto) 7.7 1.6-8.6 10 ^3/uL Lymphocytes # (Auto) 1.4 0.4-5.4 10 ^3/uL Monocytes # (Auto) 0.6 0-1.3 10 ^3/uL Eosinophils # (Auto) 0 0-0.8 10 ^3/uL Basophils # (Auto) 0 0-0.2 10 ^3/uL Nucleated Red Blood Cells 0.1 % Sodium Level 139 136-145 mmol/L Potassium Level 4.1 3.5-5.1 mmol/L Chloride Level 106 98-107 mmol/L Carbon Dioxide Level 25 20-31 mmol/L Anion Gap 8 5-15 Blood Urea Nitrogen 13 9-23 mg/dL Creatinine 1.27 0.700-1.30 mg/dL Glomerular Filtration Rate Calc 68 >90 mL/min BUN/Creatinine Ratio 10.2 10.0-20.0 Serum Glucose 96 74-106 mg/dL Calcium Level 9.4 8.7-10.4 mg/dL Total Bilirubin 0.6 0.2-1.0 mg/dL Aspartate Amino Transferase (AST) 23 13-40 U/L Alanine Aminotransferase (ALT) 37 7-40 U/L Alkaline Phosphatase 53 46-116 U/L Total Protein 6.8 5.7-8.2 g/dL Albumin 4.0 3.2-4.8 g/dL Urine Color Yellow Yellow Urine Clarity Clear Clear Urine pH 6.0 5.0-9.0 Urine Specific [place] 1.023 1.001-1.035 Urine Protein Negative Negative Urine Ketones Negative Negative Urine Blood 1+ H Negative /uL Urine Nitrite Negative Negative Urine Bilirubin Negative Negative Urine Urobilinogen Normal Negative mg/dL Urine Leukocyte Esterase Negative Negative /uL Urine RBC 22 0 - 3 /hpf Urine Microscopic WBC 1 0-3 /HPF Urine Squamous Epithelial Cells None seen <5 /hpf Urine Bacteria None seen None Seen /hpf Urine Mucus Few None Seen Urine Glucose Normal Normal mg/dL Magnesium Level 1.7 1.6-2.6 mg/dL Troponin I High Sensitivity 11 </=54 ng/L Plasma/Serum Blood Alcohol 3.2 <10 mg/dL Test 08/28/24 18:34 Range/Units Prothrombin Time 14.6 H 9.3-11.8 sec Prothrombin Time INR 1.43 H 0.9-1.15 Activated Partial Thromboplast Time 29.9 24.5-34.5 SEC Lactic Acid Level 2.0 0.4-2.0 mmol/L Plan discussed with: Other ALEXX SINGER MD Aug 29, 2024 19:35
--- NOTE | 2024-08-31 23:32 | DVHEEG2 ---
Neurology EEG Procedural Note Procedural Note EXAM DATE: 08/29/24 REFERRING DOCTOR: Dr. Alonso TECHNIQUE: Eighteen channels of EEG, 2 channels of EOG, and 1 channel of EKG were recorded using the International 10/20 system. CLINICAL DATA: The patient was referred for an EEG evaluation for the evidence of seizure disorder. MEDICATIONS: See the chart BACKGROUND ACTIVITY: While the patient was awake, the background activity consisted of well regulated 9-10 Hz rhythmic waveforms, symmetrically distributed over both posterior quadrants and was reactive to eye opening. ACTIVATION: Hyperventilation: Not done Photic Stimulation: Not done Sleep: Stage I IMPRESSION: This is a normal EEG. No focal, lateralized, or epileptiform fea tures are noted. If clinically indicated to rule out a seizure disorder, recommend repeat EEG with sleep deprivation. The EKG channel showed a regular heart rate of 84 per minute [place] [address]. ALEXX SINGER MD Aug 31, 2024 23:32
== END 2024-08-29 17:04 | disposition home or self-care (01) | DRG 101 ==
LOC: EDBD 17:44 → ER 17:47 → TELE 22:27
PROVIDERS: ADMIT Internal Medicine; ATTEND Internal Medicine
DX: G40.209 Localization-related (focal) (partial) symptomatic epilepsy and epileptic syndromes with complex partial seizures, not intractable, without status epilepticus (principal); Z68.42 Body mass index [BMI] 45.0-49.9, adult; I10 Essential (primary) hypertension; F17.200 Nicotine dependence, unspecified, uncomplicated; I48.91 Unspecified atrial fibrillation; E11.9 Type 2 diabetes mellitus without complications; E66.9 Obesity, unspecified; G47.33 Obstructive sleep apnea (adult) (pediatric); Z79.899 Other long term (current) drug therapy; Z88.6 Allergy status to analgesic agent; Z88.5 Allergy status to narcotic agent
CPT/HCPCS: 36415; 70450; 70551; 71045; 80053; 80320; 81001; 82542; 83605; 83735; 84484; 85025; 85610; 85730; 95819; G0378

== ENCOUNTER 2024-10-18 21:35 | Inpatient (IN) | payer OTHER ==
[~2024-10-18] VITALS: Ht 177.8 cm; Wt 151.0 kg
[~2024-10-18 21:35] MED LIST changes: +LACO50TA2 PO; +LAMO250T2 OR; +LEVE750T3 PO
[2024-10-18] MEDS: LORazepam 2MG/ML-1ML VIAL IV ONE (22:00)
--- NOTE | 2024-10-18 22:01 | ED.PDOC ---
HPI (NEURO) HPI Comments 49 year old male came to ER via EMS due to seizures. Per EMS, patient has history of seizures and has good compliance to it. Last seizure episode was Sep 15. At about 9pm, patient had a witnessed seizure at home , tonic clonic, lasting about a minute. Upon arrival at the ER, patient had another episode of tonic clonic seizure, lasting about the same. Patient was then given Ativan for his seizure. Chief Complaint: Seizure Time Seen by MD: 21:59 Reviewed Notes: High [employer]er Notes Information Source: Patient, Emergency Med Personnel Mode of Arrival: EMS Severity: Moderate Dizziness/Weakness Severity: Unable to do activities Headache Severity: Moderate Timing: Minutes Duration: Since onset Prehospital treatment: Oxygen Seizure Quality: Tonic-clonic Headache Quality: Throbbing, Aching Headache Location: Generalized Weakness Location: Generalized Numbness Location: Generalized Seizure Location: Generalized Review of Systems REVIEW OF SYSTEMS: (+) Patient postictal at this time of care No fever, no chills, or fatigue HEENT: No sore throat, no earache, no congestion, no neck pain. Cardiac: No chest pain. No palpitations. Lungs: No shortness of breath, no cough. GI: No nausea, no vomiting, no diarrhea, no constipation, no abdominal pain : No dysuria, frequency, or urgency. No hematuria. Musculoskeletal: No joint pain , no joint swelling, no extremity edema. Skin: No rash, no itching. Neuro: No headache, no dizziness, no weakness Vital Signs Vital Signs Date Time Temp Pulse Resp B/P (MAP) Pulse Ox O2 Delivery O2 Flow Rate FiO2 10/19/24 00:00 106 22 103/67 (79) 97 10/18/24 21:35 98.1 98.1 Physical Exam General: The patient is lethargic, easily aroused No acute distress. Skin: Skin in warm, dry and intact. Appropriate color for ethnicity. Nailbeds pink with no cyanosis. HEENT: The head is normocephalic and atraumatic. Conjunctivae are clear without exudates or hemorrhage. Sclera is non-icteric. EOM are intact. No signs of nystagmus. PERRLA Eyelids are normal in appearance without swelling or lesions. Oral mucosa is pink and moist Neck: The neck is supple with normal range of motion. No JVD. Cardiac: Heart rate and rhythm are normal. No murmurs, gallops, or rubs are auscultated. Respiratory: No signs of respiratory distress. Lung sounds are clear in all lobes bilaterally without rales, ronchi, or wheezes. Abdominal: Abdomen is soft, non-tender without distention. Bowel sounds are present and normoactive in all four quadrants. Extremities: Upper and lower extremities are atraumatic in appearance without deformity or edema. Neurological: Lethargic, easily aroused, following commands, speech slurred. Symmetrical movement of bilateral upper extremities. Psychiatric: Appropriate mood and affect. Good judgement and insight. No visual or auditory hallucinations. Past Medical History PAST MEDICAL HISTORY: AFIB, Seizures Surgical History: Pt Confused Family History Family History: Pt Confused Social History Smoker: Pt Confused Alcohol: Pt Confused Drugs: Pt Confused Lives In: Home Was a procedure done? Was a procedure done?: No Differential Diagnosis (SZ) Seizure: Alcohol Withdrawl, Hypoglycemia, Hypoxemia, Idiopathic, Encephalopathy, Epilepsy-Break Through, Epilepsy-Status X-Ray, Labs, Meds, VS Vital Signs Date Time Temp Pulse Resp B/P (MAP) Pulse Ox O2 Delivery O2 Flow Rate FiO2 10/19/24 00:00 106 22 103/67 (79) 97 10/18/24 21:35 98.1 111 16 117/69 (85) 97 98.1 Lab Test 10/18/24 22:12 Range/Units White Blood Count 11.5 H 4.4-10.8 10^3/uL Red Blood Count 5.20 4.5-5.90 10^6/uL Hemoglobin 15.3 13.5-17.5 g/dL Hematocrit 45.9 41.0-53.0 % Mean Corpuscular Volume 88.2 80.0-100.0 fL Mean Corpuscular Hemoglobin 29.4 28.0-32.0 pg Mean Corpuscular Hemoglobin Concent 33.3 32.0-36.0 g/dL Red Cell Distribution Width 15.9 H 11.8-14.3 % Platelet Count 180 140-450 10^3/uL Mean Platelet Volume 8.6 6.9-10.8 fL Neutrophils (%) (Auto) 83.3 H 37.0-80.0 % Lymphocytes (%) (Auto) 9.4 L 10.0-50.0 % Monocytes (%) (Auto) 6.4 0.0-12.0 % Eosinophils (%) (Auto) 0.2 0.0-7.0 % Basophils (%) (Auto) 0.7 0.0-2.0 % Neutrophils # (Auto) 9.5 H 1.6-8.6 10 ^3/uL Lymphocytes # (Auto) 1.1 0.4-5.4 10 ^3/uL Monocytes # (Auto) 0.7 0-1.3 10 ^3/uL Eosinophils # (Auto) 0 0-0.8 10 ^3/uL Basophils # (Auto) 0.1 0-0.2 10 ^3/uL Nucleated Red Blood Cells 0.1 % D-Dimer, Quantitative < 0.19 0.0-0.49 mg/L FEU Sodium Level 137 136-145 mmol/L Potassium Level 4.1 3.5-5.1 mmol/L Chloride Level 104 98-107 mmol/L Carbon Dioxide Level 18 L 20-31 mmol/L Anion Gap 15 5-15 Blood Urea Nitrogen 17 9-23 mg/dL Creatinine 1.67 H 0.700-1.30 mg/dL Glomerular Filtration Rate Calc 49 >90 mL/min BUN/Creatinine Ratio 10.2 10.0-20.0 Serum Glucose 124 H 74-106 mg/dL Calcium Level 9.9 8.7-10.4 mg/dL Total Bilirubin 0.3 0.2-1.0 mg/dL Aspartate Amino Transferase (AST) 38 13-40 U/L Alanine Aminotransferase (ALT) 50 H 7-40 U/L Alkaline Phosphatase 63 46-116 U/L Total Protein 7.6 5.7-8.2 g/dL Albumin 4.4 3.2-4.8 g/dL Levetiracetam Level Pending Plasma/Serum Blood Alcohol < 3.0 <10 mg/dL Current Medications Medications (Trade) Dose Ordered Sig/Daly Route Start Time Stop Time Status Last Admin Lorazepam (Ativan Inj) 2 mg ONCE ONCE IV 10/18/24 22:00 10/18/24 22:01 DC 10/18/24 22:00 Sodium Chloride 1,000 ml @ 1,000 mls/hr Q1H ONCE IV 10/18/24 22:00 10/18/24 22:59 DC 10/18/24 23:34 Levetiracetam 100 ml @ 400 mls/hr ONCE ONCE IV 10/18/24 22:00 10/18/24 22:14 DC 10/18/24 23:30 Sodium Chloride 1,000 ml @ 60 mls/hr [id number] IV 10/19/24 00:45 10/19/24 01:06 Time of 1ST Reevaluation: 21:52 Reevaluation 1ST: Unchanged Patient Education/Counseling: Diagnosis, Treatment, Other (patient is post ictal), Pt Unresponsive Family Education/Counseling: No Family Present Departure 1 Departure Time of Disposition: 02:28 Impression: Primary Impression: Seizure disorder Disposition: ADMITTED INPATIENT Condition: Stable Comments 49-year-old male who presents to the emergency department with seizure at home. Patient had another seizure on arrival to the emergency department. Patient has had increasing frequency of seizures over the past month. He is on Keppra. Patient given dose of Ativan in the emergency department as well as Keppra bolu s. Patient admitted for further treatment, evaluation and monitoring and Neurology consult. Extensive evaluation was performed in attempt to identify or rule out: (See differential diagnosis section) The following tests were ordered, and results were reviewed by me: (See diagnostic results section) The following test were independently interpreted by me: EKG I reviewed and agreed with the following test results read by other providers: CT head I reviewed the following notes from the pt's past medical encounters: (None available at this time) Additional information was gathered from interviewing the following independent historians: EMS personnel Discussion of management or test interpretation with external physician/other qualified health pet care associate: N/A Addressed An acute or chronic illness that poses a threat to life or bodily function: Seizure disorder Decision regarding hospitalization or escalation of hospital level of care: Risk and benefits of admission for further treatment of patient's condition was considered. Due to patient's current clinical condition, high risk of decline and poor outcome if discharged and need for further inpatient management and monitoring, patient will be admitted to the hospital. Drug therapy requiring intensive monitoring for toxicity: IV Keppra, Parenteral controlled substances: IV Ativan Decision regarding elective major surgery with identified patient or procedure risk factors: N/A Decision regarding emergency major surgery: N/A Decision not to resuscitate or to de-escalate care because of poor prognosis: N/A Diagnosis or treatment significantly limited by social determinants of health: N/A Critical Care Note Critical Care Time?: Yes (35 min-critical care time only) Critical care comment: Postictal Stability Stability form required: No Heart Score Heart Score: Heart Score Response (Comments) Value History N/A 0 EKG N/A 0 Age N/A 0 Risk Factors N/A 0 Troponin N/A 0 Total 0 I personally scribed for EDITH GAFFNEY MD ([email or web address]) on 10/18/24 at 22:01. Electronically submitted by Jimi Whitehead ([email or web address]). EDITH GAFFNEY MD Oct 18, 2024 22:01
[2024-10-18 22:30] LABS: Basophils # (auto) 0.1 10 ^3/uL (0-0.2); Basophils % (auto) 0.7 % (0.0-2.0); Eosinophils # (auto) 0 10 ^3/uL (0-0.8); Eosinophils % (auto) 0.2 % (0.0-7.0); Hematocrit 45.9 % (41.0-53.0); Hemoglobin 15.3 g/dL (13.5-17.5); Lymphocytes # (auto) 1.1 10 ^3/uL (0.4-5.4); Lymphocytes % (auto) 9.4 % (10.0-50.0); Mean Corpuscular Hemoglobin 29.4 pg (28.0-32.0); Mean Corpuscular Hgb Conc. 33.3 g/dL (32.0-36.0); Mean Corpuscular Volume 88.2 fL (80.0-100.0); Monocytes # (auto) 0.7 10 ^3/uL (0-1.3); Monocytes % (auto) 6.4 % (0.0-12.0); Neutrophils # (auto) 9.5 10 ^3/uL (1.6-8.6); Neutrophils % (auto) 83.3 % (37.0-80.0); Nucleated Red Blood Cells % 0.1 %; Platelet Count (auto) 180 10^3/uL (140-450); Red Cell Distribution Width 15.9 % (11.8-14.3); White Blood Cell 11.5 10^3/uL (4.4-10.8)
[2024-10-18 22:45] LABS: Albumin 4.4 g/dL (3.2-4.8); Alkaline Phosphatase 63 U/L (46-116); Anion Gap 15 (5-15); Aspartate Aminotransferase 38 U/L (13-40); BUN/Creatinine Ratio 10.2 (10.0-20.0); Blood Urea Nitrogen 17 mg/dL (9-23); Calcium 9.9 mg/dL (8.7-10.4); Chloride 104 mmol/L (98-107); Potassium 4.1 mmol/L (3.5-5.1); Sodium 137 mmol/L (136-145); Total Protein 7.6 g/dL (5.7-8.2)
[2024-10-18 22:46] LABS: Bilirubin, Total 0.3 mg/dL (0.2-1.0); Carbon Dioxide 18 mmol/L (20-31); Glucose 124 mg/dL (74-106)
[2024-10-18 22:47] LABS: Alanine Aminotransferase 50 U/L (7-40)
[2024-10-18] MEDS: levETIRAcetam 1000 mg/100ml 100 ML IV ONE (23:30)
[2024-10-18] MEDS: SODIUM CHLORIDE 0.9% 1,000 ML IV ONE (23:34)
[2024-10-19] VITALS (7 sets, daily range): BP systolic 119–137; BP diastolic 70–94; PULSE 71–86; RESP 17–18; TEMP 36.6; O2SAT 94–98
[2024-10-19] MEDS ORDERED: LORazepam 2MG/ML-1ML VIAL IV PRN (00:45)
[2024-10-19] MEDS ORDERED: NITROGLYCERIN 0.4 MG SL TAB SL PRN (00:45)
[2024-10-19] MEDS ORDERED: ONDANSETRON HCL 4 MG/2 ML VIAL IV PRN (00:45)
[2024-10-19] MEDS ORDERED: DOCUSATE SOD 100 MG CAP PO PRN (00:45)
[2024-10-19] MEDS ORDERED: MORPHINE SULFATE INJ 2 MG/ml SYRG IV PRN (00:45)
--- NOTE | 2024-10-19 00:47 | DVHHP2 ---
History of Present Illness Reason for Visit: Seizure disorder Review of Systems Allergies: Coded Allergies: Codeine (Verified Allergy, Unknown, 07/21/24) Ibuprofen (Verified Allergy, Unknown, 07/21/24) Exam Vital Signs Vital Signs Date Time Temp Pulse Resp B/P (MAP) Pulse Ox O2 Delivery O2 Flow Rate FiO2 10/19/24 00:00 106 22 103/67 (79) 97 10/18/24 21:35 98.1 98.1 Labs/Xrays Labs Test 10/18/24 22:12 Range/Units White Blood Count 11.5 H 4.4-10.8 10^3/uL Red Blood Count 5.20 4.5-5.90 10^6/uL Hemoglobin 15.3 13.5-17.5 g/dL Hematocrit 45.9 41.0-53.0 % Mean Corpuscular Volume 88.2 80.0-100.0 fL Mean Corpuscular Hemoglobin 29.4 28.0-32.0 pg Mean Corpuscular Hemoglobin Concent 33.3 32.0-36.0 g/dL Red Cell Distribution Width 15.9 H 11.8-14.3 % Platelet Count 180 140-450 10^3/uL Mean Platelet Volume 8.6 6.9-10.8 fL Neutrophils (%) (Auto) 83.3 H 37.0-80.0 % Lymphocytes (%) (Auto) 9.4 L 10.0-50.0 % Monocytes (%) (Auto) 6.4 0.0-12.0 % Eosinophils (%) (Auto) 0.2 0.0-7.0 % Basophils (%) (Auto) 0.7 0.0-2.0 % Neutrophils # (Auto) 9.5 H 1.6-8.6 10 ^3/uL Lymphocytes # (Auto) 1.1 0.4-5.4 10 ^3/uL Monocytes # (Auto) 0.7 0-1.3 10 ^3/uL Eosinophils # (Auto) 0 0-0.8 10 ^3/uL Basophils # (Auto) 0.1 0-0.2 10 ^3/uL Nucleated Red Blood Cells 0.1 % Sodium Level 137 136-145 mmol/L Potassium Level 4.1 3.5-5.1 mmol/L Chloride Level 104 98-107 mmol/L Carbon Dioxide Level 18 L 20-31 mmol/L Anion Gap 15 5-15 Blood Urea Nitrogen 17 9-23 mg/dL Creatinine 1.67 H 0.700-1.30 mg/dL Glomerular Filtration Rate Calc 49 >90 mL/min BUN/Creatinine Ratio 10.2 10.0-20.0 Serum Glucose 124 H 74-106 mg/dL Calcium Level 9.9 8.7-10.4 mg/dL Total Bilirubin 0.3 0.2-1.0 mg/dL Aspartate Amino Transferase (AST) 38 13-40 U/L Alanine Aminotransferase (ALT) 50 H 7-40 U/L Alkaline Phosphatase 63 46-116 U/L Total Protein 7.6 5.7-8.2 g/dL Albumin 4.4 3.2-4.8 g/dL Assessment/Plan My Orders Orders - ERICA HILL DNP Procedure Category Date Status Time Complete Blood Count LAB 10/19/24 Transmitted 04:00 Comprehensive LAB 10/19/24 Transmitted Metabolic Panel 04:00 Levetiracetam (Keppra) LAB 10/19/24 Transmitted 04:00 Levetiracetam Ivpb PHA 10/19/24 Transmitted Keppra 10:00 Lorazepam 2mg/Ml Inj PHA 10/19/24 Transmitted (Ativan Inj) 00:45 Admit ADMIT 10/19/24 Transmitted 00:41 Allergies JUAN 10/19/24 Transmitted 00:41 Code Status CODE 10/19/24 Transmitted 00:41 0.9% Ns 1000 Ml PHA 10/19/24 Verified 00:45 Oxygen Per Hour RT 10/19/24 Verified 00:41 Ondansetron Hcl PHA 10/19/24 Verified (Zofran) 00:45 Docusate Sodium PHA 10/19/24 Verified Capsule (Colace 00:45 Fall Risk Precautions JUAN 10/19/[address] 00:41 Complete Blood Count LAB 10/20/24 Verified 04:00 Comprehensive LAB 10/20/24 Verified Metabolic Panel 04:00 Cardiac DIET 10/19/24 Verified Diet-2gna,Lofat,Lochol Breakfast Condition: Serious JUAN 10/19/24 Verified 00:41 Acetaminophen Tablet PHA 10/19/24 Verified (Tylenol Tablet) 00:45 Sequential JUAN 10/19/24 Verified Compression Device Nitroglycerin PHA 10/19/24 Verified Sublingual (Ntrostat 00:45 Morphine Sulfate PHA 10/19/24 Verified Injection 00:45 Stat Ekg For Chest [facility] 10/19/24 Verified Pain 00:41 Notify Md Of Changes [facility] 10/19/24 Verified From Base 00:41 Bookbinder Apprentice For [facility] 10/19/24 Verified 24 Hours 00:41 Emergency Dysrhythmia [facility] 10/19/24 Verified Protocol 00:41 Rhythm Strips Once [facility] 10/19/24 Verified Every Shift 00:41 Oxygen By Nasal RT 10/19/24 Verified Cannula 00:[address] [facility] Oct 19, 2024 00:47
--- NOTE | 2024-10-19 01:03 | DVHHP2 ---
History of Present Illness Reason for Visit: Seizure disorder History of Present Illness The patient is a 49-year-old male morbidly obese with past medical history of hypertension and seizure disorder who presented to [facility] ED for evaluation of seizures activities. As reported, patient had a witnessed seizure at home, tonic clonic lasting for a minutes, associated confusion state, generalized weakness that EMS were called. Patient had another episode of tonic- clonic seizures lasting for about 1 minutes upon arrival in the ED. patient was seen and evaluated in the ED, laboratory data shows WBC 11.5, platelets 180, sodium 137, potassium 4.1, BUN 17, creatinine 1.67, GFR 49, glucose 124, AST 38, ALT 50, blood pressure 103/67, heart rate 106, temperature 98.1 F, O2 saturation 97% on oxygen. Head CT results pending. Patient was started on IV Keppra, please see medication orders section in the computer. On my assessment, patient is alert oriented x3, denied chest pain, no headache, no dizziness, no blurry vision, no seizures activities at this moment, no nausea, no vomiting, no fever, no chills. Patient was admitted for further evaluation and medical management. Past Medical History HTN,, Seizures Past Surgical History Patient denies surgical history at this moment. Family History Reviewed, noncontributory to the management of this case. Past Social History The patient lives at home, denies smoking, alcohol or illicit drugs abuse. Review of Systems Constitutional: Yes: Weakness; No: Fever, Chills, Sweats, Malaise, Other Eyes: No: Pain, Vision change, Conjunctivae inflammation, Eyelid inflammation, Other, Redness ENT: No: Ear pain, Ear discharge, Nose pain, Nose discharge, Nose congestion, Mouth pain, Mouth swelling, Throat pain, Throat swelling, Other Respiratory: Shortness of breath; No: Cough, Dry, SOB with excertion, Wheezing, Hemoptysis, Pleuritic Pain, Sputum, Wheezing, Other Cardiovascular: No: Chest Pain, Palpitations, Orthopnea, Paroxysmal Noc. Dyspnea, Edema, Lt Headedness, Other Gastrointestinal: No: Nausea, Vomiting, Abdominal Pain, Diarrhea, Constipation, Melena, Hematochezia, Other Genitourinary: No Dysuria, No Frequency, No Incontinence, No Hematuria, No Retention, No Other Musculoskeletal: No: other, neck pain, shoulder pain, arm pain, back pain, hand pain, leg pain, foot pain Skin: No: Rash, Lesions, Jaundice, Bruising, Other Neurological: Confusion, Seizures; No: Weakness, Numbness, Incoordination, Change in speech, Other Allergies: Coded Allergies: Codeine (Verified Allergy, Unknown, 07/21/24) Ibuprofen (Verified Allergy, Unknown, 07/21/24) Medications Current Medications Medications Dose Ordered Sig/Daly Route Start Time Stop Time Status Last Admin Dose Admin Levetiracetam 100 ml @ 400 mls/hr BID IV 10/19/24 10:00 Lorazepam 1 mg Q2HP PRN IV 10/19/24 00:45 Sodium Chloride 1,000 ml @ 60 mls/hr [id number] IV 10/19/24 00:45 Ondansetron HCl 4 mg Q4HP PRN IV 10/19/24 00:45 Docusate Sodium 100 mg BIDPRN PRN PO 10/19/24 00:45 Acetaminophen 650 mg Q6HP PRN PO 10/19/24 00:45 Nitroglycerin 0.4 mg Q5MINP PRN SL 10/19/24 00:45 Morphine Sulfate 2 mg Q30M PRN IV 10/19/24 00:45 UNV Exam Vital Signs Vital Signs Date Time Temp Pulse Resp B/P (MAP) Pulse Ox O2 Delivery O2 Flow Rate FiO2 10/19/24 00:00 106 22 103/67 (79) 97 10/18/24 21:35 98.1 98.1 General Appearance: Alert, Oriented X3, Cooperative, No acute distress HEENT: Atraumatic, PERRLA, EOMI, Mucous membr. moist/pink Respiratory: Clear to auscultation, Normal air movement Cardiovascular: Regular rate, Normal S1, Normal S2, No murmurs Abdominal: Normal bowel sounds, Soft, No tenderness, No hepatospenomegaly, No m asses Extremities: No clubbing, No cyanosis, No edema, Normal pulses, No tenderness/swelling Skin: No rashes, No breakdown, No significant lesion Neuro: Normal speech, Normal tone, Sensation intact, Cranial nerves 3-12 NL, Reflexes 2+, Other (Generalized weakness) Psych/Mental Status: Mental status NL, Mood NL Labs/Xrays Labs Test 10/18/24 22:12 Range/Units White Blood Count 11.5 H 4.4-10.8 10^3/uL Red Blood Count 5.20 4.5-5.90 10^6/uL Hemoglobin 15.3 13.5-17.5 g/dL Hematocrit 45.9 41.0-53.0 % Mean Corpuscular Volume 88.2 80.0-100.0 fL Mean Corpuscular Hemoglobin 29.4 28.0-32.0 pg Mean Corpuscular Hemoglobin Concent 33.3 32.0-36.0 g/dL Red Cell Distribution Width 15.9 H 11.8-14.3 % Platelet Count 180 140-450 10^3/uL Mean Platelet Volume 8.6 6.9-10.8 fL Neutrophils (%) (Auto) 83.3 H 37.0-80.0 % Lymphocytes (%) (Auto) 9.4 L 10.0-50.0 % Monocytes (%) (Auto) 6.4 0.0-12.0 % Eosinophils (%) (Auto) 0.2 0.0-7.0 % Basophils (%) (Auto) 0.7 0.0-2.0 % Neutrophils # (Auto) 9.5 H 1.6-8.6 10 ^3/uL Lymphocytes # (Auto) 1.1 0.4-5.4 10 ^3/uL Monocytes # (Auto) 0.7 0-1.3 10 ^3/uL Eosinophils # (Auto) 0 0-0.8 10 ^3/uL Basophils # (Auto) 0.1 0-0.2 10 ^3/uL Nucleated Red Blood Cells 0.1 % D-Dimer, Quantitative < 0.19 0.0-0.49 mg/L FEU Sodium Level 137 136-145 mmol/L Potassium Level 4.1 3.5-5.1 mmol/L Chloride Level 104 98-107 mmol/L Carbon Dioxide Level 18 L 20-31 mmol/L Anion Gap 15 5-15 Blood Urea Nitrogen 17 9-23 mg/dL Creatinine 1.67 H 0.700-1.30 mg/dL Glomerular Filtration Rate Calc 49 >90 mL/min BUN/Creatinine Ratio 10.2 10.0-20.0 Serum Glucose 124 H 74-106 mg/dL Calcium Level 9.9 8.7-10.4 mg/dL Total Bilirubin 0.3 0.2-1.0 mg/dL Aspartate Amino Transferase (AST) 38 13-40 U/L Alanine Aminotransferase (ALT) 50 H 7-40 U/L Alkaline Phosphatase 63 46-116 U/L Total Protein 7.6 5.7-8.2 g/dL Albumin 4.4 3.2-4.8 g/dL Assessment/Plan Assessment/Plan Seizure disorder Acute renal injury Morbid obesity Generalized weakness Plan 1. Admit to telemetry unit 2. Breathing treatment 3. Pain control management 4. Management of fluids and electrolytes 5. Consultation for Neurology 6. Diagnostic tests head CT 7. DVT prophylaxis on SCDs 8. Repeat labs CBC, CMP in a.m. 9. Continue with current medical management 10. Treatment plan discussed with patient and RN. Patient verbalized understanding. Plan discussed with: Patient, Other (RN) My Orders Orders - ERICA HILL DNP Procedure Category Date Status Time Complete Blood Count LAB 10/19/24 Logged 04:00 Comprehensive LAB 10/19/24 Logged Metabolic Panel 04:00 Levetiracetam 1000 PHA 10/19/24 In Process Mg/100ml (Levetiracet 10:00 Lorazepam 2mg/Ml Inj PHA 10/19/24 In Process (Ativan Inj) 00:45 Allergies JUAN 10/19/24 In Process 00:41 Code Status CODE 10/19/24 Transmitted 00:41 Sodium Chloride 0.9% PHA 10/19/24 In Process 00:45 Oxygen Per Hour RT 10/19/24 Transmitted 00:41 Ondansetron Hcl PHA 10/19/24 In Process (Zofran) 00:45 Docusate Sodium PHA 10/19/24 In Process Capsule (Colace 00:45 Fall Risk Precautions JUAN 10/19/[address] 00:41 Complete Blood Count LAB 10/20/24 Verified 04:00 Comprehensive LAB 10/20/24 Verified Metabolic Panel 04:00 Cardiac DIET 10/19/24 Transmitted Diet-2gna,Lofat,Lochol Breakfast Condition: Serious JUAN 10/19/24 In Process 00:41 Acetaminophen Tablet PHA 10/19/24 In Process (Tylenol Tablet) 00:45 Sequential JUAN 10/19/24 In Process Compression Device Nitroglycerin PHA 10/19/24 In Process Sublingual (Ntrostat 00:45 Morphine Sulfate PHA 10/19/24 Pending Injection 00:45 Stat Ekg For Chest JUAN 10/19/24 In Process Pain 00:41 Notify Md Of Changes [facility] 10/19/24 In Process From Base 00:41 Preschool Teacher For [facility] 10/19/24 In Process 24 Hours 00:41 Emergency Dysrhythmia [facility] 10/19/24 In Process Protocol 00:41 Rhythm Strips Once [facility] 10/19/24 In Process Every Shift 00:41 Oxygen By Nasal RT 10/19/24 Transmitted Cannula 00:41 Admit ADMIT 10/19/24 Transmitted 01:00 Problem List: (1) Seizure disorder (2) Acute renal injury (3) Morbid obesity (4) Generalized weakness Date of Service: Oct 19, 2024 Billing Provider: ERICA HILL DNP Common Visit Codes: [id number] INP/OBS CARE (HIGH) ERICA HILL DNP Oct 19, 2024 01:03
[2024-10-19] MEDS: SODIUM CHLORIDE 0.9% 1,000 ML IV SCH (01:06)
--- NOTE | 2024-10-19 01:11 | DVH ---
CT HEAD WITHOUT CONTRAST INDICATION: Seizure COMPARISON: CT HEAD WITHOUT CONTRAST on DOS: 08/28/24 TECHNIQUE: CT of the head without intravenous contrast. RADIATION DOSE: CTDIvol: mGy, DLP: mGy*cm FINDINGS: There is no evidence of intracranial hemorrhage, infarct, extra-axial collection, mass effect, midli ne shift, herniation or hydrocephalus. The ventricles, sulci and cisterns are normal. The boston-white differentiation is normal. Visualized paranasal sinuses and mastoid air cells are clear. Soft tissues and osseous structures are unremarkable. IMPRESSION: No intracranial abnormality identified.
[2024-10-19] MEDS: ACETAMINOPHEN 325 MG TAB PO PRN (03:14)
[2024-10-19] MEDS: levETIRAcetam 1000 mg/100ml 100 ML IV SCH (10:02)
[2024-10-19 10:48] LABS: Basophils # (auto) 0.1 10 ^3/uL (0-0.2); Basophils % (auto) 0.7 % (0.0-2.0); Eosinophils # (auto) 0.1 10 ^3/uL (0-0.8); Eosinophils % (auto) 0.9 % (0.0-7.0); Hematocrit 40.8 % (41.0-53.0); Hemoglobin 13.8 g/dL (13.5-17.5); Lymphocytes # (auto) 1.4 10 ^3/uL (0.4-5.4); Lymphocytes % (auto) 13.9 % (10.0-50.0); Mean Corpuscular Hemoglobin 29.8 pg (28.0-32.0); Mean Corpuscular Hgb Conc. 33.9 g/dL (32.0-36.0); Mean Corpuscular Volume 87.9 fL (80.0-100.0); Monocytes # (auto) 0.7 10 ^3/uL (0-1.3); Monocytes % (auto) 7.4 % (0.0-12.0); Neutrophils # (auto) 7.7 10 ^3/uL (1.6-8.6); Neutrophils % (auto) 77.1 % (37.0-80.0); Nucleated Red Blood Cells % 0.2 %; Platelet Count (auto) 154 10^3/uL (140-450); Red Blood Cells 4.64 10^6/uL (4.5-5.90); Red Cell Distribution Width 15.8 % (11.8-14.3)
[2024-10-19] MEDS: SODIUM CHLORIDE 0.9% 1,000 ML IV ONE (11:00)
[2024-10-19 11:05] LABS: Albumin 3.8 g/dL (3.2-4.8); Alkaline Phosphatase 53 U/L (46-116); Anion Gap 6 (5-15); Aspartate Aminotransferase 31 U/L (13-40); BUN/Creatinine Ratio 11.3 (10.0-20.0); Blood Urea Nitrogen 16 mg/dL (9-23); Calcium 9.1 mg/dL (8.7-10.4); Carbon Dioxide 26 mmol/L (20-31); Chloride 105 mmol/L (98-107); Glucose 105 mg/dL (74-106); Potassium 4.2 mmol/L (3.5-5.1); Sodium 137 mmol/L (136-145); Total Protein 6.6 g/dL (5.7-8.2)
[2024-10-19 11:06] LABS: Bilirubin, Total 0.3 mg/dL (0.2-1.0)
[2024-10-19 11:08] LABS: Alanine Aminotransferase 42 U/L (7-40)
--- NOTE | 2024-10-19 11:09 | DVHDS2 ---
New Physician D'charge PN Admitting Diagnosis Admitting Diagnosis seizure Discharge Diagnosis seizure d/o Operations or Procedures none Reason(s) For Hospitalization Surgery Hospital Course 49 M who comes to ER for seizure at home. He has known seizure d/o and takes seizure meds at home lamictal and keppra. He had a seizure at home and was brought to ER. Head CT showed no abnormalities. Patient is now awake and alert. He was loaded with keppra and started on IV keppra BID. his WBC was nml at 10k this AM and chem panel also nml. He was recently seen at this hospital last month and had a full work up including head CT, brain MRI, EEG which were all negaitve. He was seen by neurology then and recommended to stay on his seizure meds lamictal and keppra. [place] outpt neuro follow up and he is to continue his seizure meds as prescribed. Treatment Plan Discharge Condition of Discharge Good Disposition Home Discharge Instructions Diet: Cardiac 2g Na,low cholest Diet comment: pcp neuro Activity: No Restrictions, As Tolerated Medications: see med sheet Follow Up Care Discharge Statement: "Patient was advised to return to the ER or call 911 if any headaches, dizziness, shortness of breath, chest pain, abdominal pain, bleeding, fevers, or worsening of medical condition. Patient was counseled about treatment plan, medications, possible side effects, patientverbalized understanding. All questions were answered to the best of my ability. This discharge took greater then 30 minutes in planning, reviewing documentation, counseling the patient, and discussing with other team members." GAURAV HANCOCK MD Oct 19, 2024 11:08
== END 2024-10-19 14:40 | disposition home or self-care (01) | DRG 101 ==
LOC: ER 21:35 → EDBD 21:35 → OVERFLOW 10-19 01:00 → TELE-CENTR 10-19 02:34
PROVIDERS: ADMIT Nurse Practitioner Family; ATTEND Nurse Practitioner Family
DX: G40.409 Other generalized epilepsy and epileptic syndromes, not intractable, without status epilepticus (principal); N17.9 Acute kidney failure, unspecified; Z68.42 Body mass index [BMI] 45.0-49.9, adult; I48.91 Unspecified atrial fibrillation; E66.01 Morbid (severe) obesity due to excess calories; I10 Essential (primary) hypertension; Z88.5 Allergy status to narcotic agent; Z88.6 Allergy status to analgesic agent; Z79.1 Long term (current) use of non-steroidal anti-inflammatories (NSAID); Z79.899 Other long term (current) drug therapy
CPT/HCPCS: 36415; 70450; 80053; 80320; 82542; 85025; 85379; 96361; 96365; 96375; 99291; G0378

== ENCOUNTER 2025-01-07 13:46 | Emergency (ER) | payer OTHER ==
[~2025-01-07] VITALS: Ht 177.8 cm; Wt 136.0 kg
[~2025-01-07 13:46] MED LIST changes: -AUG875T PO; -BENZ200C64 PO
--- NOTE | 2025-01-07 13:56 | ED.PDOC ---
History of Present Illness HPI Comments 49-year-old male with PMHx A-Fib, HTN, Seizures brought in by EMS presents with a chief complaint of seizure activity. Patient is normally compliant with his medications, but family on scene stated to EMS that this morning he forgot to take his medication and had a seizure. Patient was assisted to the ground by family and did not hit his head. Family reported to EMS that patient typically has multiple seizures after the first one and wanted him to be monitored. Patient is nonverbal and postictal at this time. Blood sugar was 96. Time Seen by MD: 13:49 Reviewed Notes: Nurses Notes, Diamond Grinder Notes, Medications, Allergies Allergies: Coded Allergies: Codeine (Verified Allergy, Unknown, 07/21/24) Ibuprofen (Verified Allergy, Unknown, 07/21/24) Home Meds Active Scripts Lamotrigine (LAMOTRIGINE ER) 250 Mg Tab, 250 MG OR BID for 30 Days, #60 TAB 1 Refill Prov:JANETTE LOBATO DO 08/29/24 Levetiracetam (Levetiracetam) 750 Mg Tab, 1500 MG PO BID for 30 Days, #120 TAB 2 Refills Prov:JANETTE LOBATO DO 08/29/24 Acetaminophen (Tylenol Extra Strength) 500 Mg Tab, 1000 MG PO Q6HP PRN, #30 TAB prn fever or pain Prov:BELLA ZIMMERMAN MD 07/21/24 Reported Medications Lacosamide (Vimpat) 50 Mg Tab, 50 MG PO BID for 30 Days, #60 TAB 1 Refill 08/29/24 Information Source: Emergency Med Personnel Mode of Arrival: EMS Severity: Moderate Timing: Hours Duration: Since onset Prehospital treatment: Accucheck (96), [employer]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 Past Medical History PAST MEDICAL HISTORY: AFIB, HTN, Seizures Surgical History: Pt Confused Family History Family History: Pt Confused Social History Smoker: Pt Confused Alcohol: Pt Confused Drugs: Pt Confused Lives In: Home Constitutional: denies: chills, diaphoresis, fatigue, fever, malaise, sweats, weakness, others EENTM: denies: blurred vision, double vision, ear bleeding, ear discharge, ear drainage, ear pain, ear ringing, eye pain, eye redness, hearing loss, mouth pain, mouth swelling, nasal discharge, nose bleeding, nose congestion, nose pain, photophobia, tearing, throat pain, throat swelling, voice changes, others Respiratory: denies: cough, hemoptysis, orthopnea, SOB at rest, shortness of breath, SOB with excertion, stridor, wheezing, others Cardiovascular: denies: chest pain, dizzy spells, diaphoresis, Dyspnea on exertion, edema, irregular heart beat, left arm pain, lightheadedness, palpitations, PND, syncope, others Gastrointestinal: denies: abdomen distended, abdominal pain, blood streaked bowels, constipated, diarrhea, dysphagia, difficulty swallowing, hematemesis, melena, nausea, poor appetite, poor fluid intake, rectal bleeding, rectal pain, vomiting, others Genitourinary: denies: burning, dysuria, flank pain, frequency, hematuria, incontinence, penile discharge, penile sore, pain, testicle pain, testicle swelling, urgency, others Neurological: reports: seizure; denies: dizziness, fainting, headache, left sided numbness, left sided weakness, numbness, paresthesia, pre-existing deficit, right sided numbness, right sided weakness, speech problems, tingling, tremors, weakness, others Musculoskeletal: denies: back pain, gout, joint pain, joint swelling, muscle pain, muscle stiffness, neck pain, others Integumetry: denies: bruises, change in color, change in hair/nails, dryness, laceration, lesions, lumps, rash, wounds, others Allergic/Immunocompromised: denies: Difficulty Healing, Frequent Infections, Hives, Itching, others Hematologic/Lymphatic: denies: anemia, blood clots, easy bleeding, easy bruising, swollen glands, others Endocrine: denies: excessive hunger, excessive sweating, excessive thirst, excessive urination, flushing, intolerance to cold, intolerance to heat, unexplained weight gain, unexplained weight loss, others Psychiatric: denies: anxiety, bipolar disorder, depression, hopeless, panic disorder, schizophrenia, sleepless, suicidal, others All Other Systems: Reviewed and Negative Physical Exam General Appearance: No Apparent Distress HEENT: Normal ENT Inspection, Pharynx Normal, TMs Normal Neck: Full Range of Motion, Non-Tender, Normal, Normal Inspection Respiratory: Chest Non-Tender, Lungs Clear, No Accessory Muscle Use, No Respiratory Distress, Normal Breath Sounds Cardiovascular: No Edema, No JVD, No Murmur, No Gallop, Normal Peripheral Pulses, Regular Rate/Rhythm Breast Exam: Deferred Gastrointestinal: No Organomegaly, Non Tender, No Pulsatile Mass, Normal Bowel Sounds, Soft Genitalia: Deferred Pelvic: Deferred Rectal: Deferred Extremities: No calf tenderness, Normal capillary refill, Normal inspection, Normal range of motion, Non-tender, No pedal edema Musculoskeletal : Apperance: Normal Neurologic: watch leader II-XII nml as Tested, Motor Weakness, Normal Affect, Normal M ood, No Sensory Deficits Cerebellar Function: Normal Reflexes: Normal Skin: Dry, Normal Color, Warm Lymphatic: No Adenopathy Was a procedure done? Was a procedure done?: No Differential Dx Considerations may include: Seizure activity, generalized weakness X-Ray, Labs, Meds, VS Vital Signs Date Time Temp Pulse Resp B/P (MAP) Pulse Ox O2 Delivery O2 Flow Rate FiO2 01/07/25 14:00 99.0 80 24 115/78 (90) 94 99.0 Lab Test 01/07/25 14:05 Range/Units White Blood Count 9.2 4.4-10.8 10^3/uL Red Blood Count 4.77 4.5-5.90 10^6/uL Hemoglobin 14.3 13.5-17.5 g/dL Hematocrit 41.9 41.0-53.0 % Mean Corpuscular Volume 87.8 80.0-100.0 fL Mean Corpuscular Hemoglobin 30.1 28.0-32.0 pg Mean Corpuscular Hemoglobin Concent 34.2 32.0-36.0 g/dL Red Cell Distribution Width 16.8 H 11.8-14.3 % Platelet Count 175 140-450 10^3/uL Mean Platelet Volume 8.7 6.9-10.8 fL Neutrophils (%) (Auto) 81.3 H 37.0-80.0 % Lymphocytes (%) (Auto) 11.9 10.0-50.0 % Monocytes (%) (Auto) 5.4 0.0-12.0 % Eosinophils (%) (Auto) 1.0 0.0-7.0 % Basophils (%) (Auto) 0.4 0.0-2.0 % Neutrophils # (Auto) 7.4 1.6-8.6 10 ^3/uL Lymphocytes # (Auto) 1.1 0.4-5.4 10 ^3/uL Monocytes # (Auto) 0.5 0-1.3 10 ^3/uL Eosinophils # (Auto) 0.1 0-0.8 10 ^3/uL Basophils # (Auto) 0 0-0.2 10 ^3/uL Nucleated Red Blood Cells 0.1 % CBC is within normal limits The patient is being discharged with a diagnosis of breakthrough seizure The patient will return to the emergency department's the condition worsens. Images Reviewed?: Images reviewed and evaluated by me Time of 1ST Reevaluation: 14:19 Reevaluation 1ST: Improved Patient Education/Counseling: Diagnosis, Treatment, Prognosis, Need For Follow Up Family Education/Counseling: No Family Present Departure 1 Departure Time of Disposition: 14:46 Impression: Primary Impression: Breakthrough seizure Disposition: 01 HOME / SELF CARE / HOMELESS Condition: Fair Discharged With: Self Critical Care Note Critical Care Time?: No Stability Stability form required: No Heart Score Heart Score: Heart Score Response (Comments) Value History N/A 0 EKG N/A 0 Age N/A 0 Risk Factors N/A 0 Troponin N/A 0 Total 0 I personally scribed for JUAREZ ANDREWS MD ([email or web address]) on 01/07/25 at 13:56. Electronically submitted by Damion Betancourt ([email or web address]). JUAREZ ANDREWS MD Jan 07, 2025 13:56
[2025-01-07 14:36] LABS: Basophils # (auto) 0 10 ^3/uL (0-0.2); Basophils % (auto) 0.4 % (0.0-2.0); Eosinophils # (auto) 0.1 10 ^3/uL (0-0.8); Hematocrit 41.9 % (41.0-53.0); Hemoglobin 14.3 g/dL (13.5-17.5); Lymphocytes # (auto) 1.1 10 ^3/uL (0.4-5.4); Lymphocytes % (auto) 11.9 % (10.0-50.0); Mean Corpuscular Hemoglobin 30.1 pg (28.0-32.0); Mean Corpuscular Hgb Conc. 34.2 g/dL (32.0-36.0); Mean Corpuscular Volume 87.8 fL (80.0-100.0); Monocytes # (auto) 0.5 10 ^3/uL (0-1.3); Monocytes % (auto) 5.4 % (0.0-12.0); Neutrophils # (auto) 7.4 10 ^3/uL (1.6-8.6); Neutrophils % (auto) 81.3 % (37.0-80.0); Nucleated Red Blood Cells % 0.1 %; Platelet Count (auto) 175 10^3/uL (140-450); Red Blood Cells 4.77 10^6/uL (4.5-5.90); Red Cell Distribution Width 16.8 % (11.8-14.3); White Blood Cell 9.2 10^3/uL (4.4-10.8)
[2025-01-07 15:46] VITALS: PULSE 90; RESP 16; TEMP 98.8; O2SAT 96
[2025-01-07] MEDS: LORazepam 2MG/ML-1ML VIAL IM ONE (16:01)
[2025-01-07] MEDS: levETIRAcetam 1000 mg/100ml 100 ML IV ONE (16:16)
[2025-01-07] MEDS: LORazepam 2MG/ML-1ML VIAL IV ONE (16:57)
[2025-01-07 18:23] VITALS: BP 159/89; PULSE 84; RESP 16; O2SAT 94
== END 2025-01-07 18:28 | disposition home or self-care (01) ==
LOC: EDBD 13:46 → ER 13:59
DX: G40.909 Epilepsy, unspecified, not intractable, without status epilepticus (principal); I10 Essential (primary) hypertension; Z88.6 Allergy status to analgesic agent; Z88.5 Allergy status to narcotic agent; Z79.899 Other long term (current) drug therapy
CPT/HCPCS: 36415; 85025; 96365; 96372; 99284; J1953; J2060

== ENCOUNTER 2025-02-10 17:24 | Inpatient (IN) | payer OTHER ==
[~2025-02-10] VITALS: Ht 167.6 cm; Wt 113.5 kg
[~2025-02-10 17:24] MED LIST changes: -ACET-1304 PO; -LAMO250T2 OR; -LEVE750T3 PO
--- NOTE | 2025-02-10 18:05 | ED.PDOC ---
HPI (NEURO) HPI Comments HPI:REPORT GIVEN TO YASMANI HERNANDEZ ALL QUESTIONS ANSWERED 50 y/o M, BIBA, with PMHx of AFib, HTN, and seizures presents to the ED for CC of s/p seizure. EMS reports, patient is coming from home where he had x2 witnessed seizures by family lasting approximately, x1min each. At this time patient is A&Ox4 and is answering all questions appropriately. Patient denies oral trauma, incontinence, head injury, nausea, or vomiting. No other symptoms or modifying factors present at this time. Initial Vitals BP:133/75 HR:82 RR:15 O2:100% Temp:98.4 Past Medical History: AFIB, HTN, SEIZURES Past Surgical History: Social History: Denies ETOH, smoking, and drug use. Medications: Allergies: CODEINE, IBUPROFEN GIL: SEIZURE: HPI: Poor Historian. Icggj-kfi-ofto-old male brought in by ambulance from home status post two seizures today. Patient states compliance with his Keppra medication. Patient had two witnessed seizures today without any fall or head injury or trauma. Patient typically gets seizures once a month. Patient is on Keppra. Patient has some Coumadin but he does not know why. Seizure was witnessed by the father today at home. Past Medical History: Seizure disorder Past Surgical History: REVIEW OF SYSTEMS: CONSTITUTIONAL: Denies acute: fever, diaphoresis, chills, HEAD: Denies acute: headache, photophobia Eyes: Denies acute: Double vision, vision loss, eye pain, eye discharge. EARS: Denies acute: tinnitus, hearing loss, ear discharge, ear pain, THROAT: Denies acute: sore throat, swelling, difficulty swallowing , pain with swallowing, change in voice. NECK: Denies acute: neck pain, neck swelling, stiff neck. HEART: Denies acute : chest pain, palpitations, LUNGS: Denies acute: SOB, wheezing, cough, hemoptysis ABDOMEN: Denies acute: abdominal pain, Nausea, Vomiting, diarrhea, melena , hematemesis, hematochezia SKIN: Denies acute: rash, redness, lesions, itchiness. EXTREMITIES: Denies acute: calf pain, numbness, tingling, weakness, denies pain in extremity. Denies acute: Low back pain. Neuro: Denies acute: focal neurological deficit, motor or sensory focal neurological deficit, dizziness, change in mental status, loss of bowel or bladder function, cauda equina like symptoms. : Denies acute: dysuria, hematuria, flank pain, increase in urinary frequency. PSYCH: Denies acute: hallucination, suicidal ideation, homicidal ideation. PHYSICAL EXAM: General: ----mild to moderate----acute distress, awake and alert. Head: normocephalic, atraumatic. Neck: supple, trachea is midline, no swelling. Throat: Normal phonation. No oral trauma or tongue contusion Eyes:, no erythema, no purulent discharge, no proptosis, no icterus. Heart: regular rate, regular rhythm, no significant murmur appreciated. Lungs: no apparent respiratory distress, No wheezing, no rhonchi, no crackles. No stridors Clear to auscultation bilaterally. Abdomen: non tender to palpation, non distended, soft, no guarding, no rebound, + bowel sounds. Obese Neuro: Awake, Alert, oriented to name, self, situation, follows commands Slightly postictal Speech is normal. Skin: no petechia, no purpura, no cyanosis, non-pale, not jaundice. Lower extremities: --no - Pitting edema no deformity, no focal swelling, no calf TTP. Makes eye contact. moves all four extremities. Face: no apparent facial droop. PERRLA, EOM-I CN 2-12 are grossly intact, No nystagmus. ED COURSE: DISCLAIMER: This medical document was created using an electronic medical record system with voice recognition software and computerized dictation system. Although this document has been carefully reviewed, there might still be some phonetic and typographical errors. Occasional wrong-word or "sound-alike" substitutions may have occurred due to the inherent limitations of voice recognition software. These areas are purely typographical due to imperfections of the software programs and do not reflect any compromise in the patient's medical care. Please read the chart carefully and recognize, using context, where these substitutions have occurred. Chief Complaint: Seizure Time Seen by MD: 17:50 Reviewed Notes: Nurses Notes, Medications, Allergies Information Source: Patient, Emergency Med Personnel Mode of Arrival: Ambulatory Severity: Moderate Dizziness/Weakness Severity: Does not affect activitie Headache Severity: None Timing: Minutes Duration: Since onset Prehospital treatment: None Seizure Quality: Mulitple Episodes Seizure Location: Generalized Onset: At rest Circumstances: Spontaneous Before: Normal During: Awake After: Normal Mentation History of: None Modifying factors: Nothing Associated Signs and Symptoms: None Was a procedure done? Was a procedure done?: No Differential Diagnosis (SZ) Seizure: Hypoglycemia, Syncope, Epilepsy-Break Through, Other (SEIZUREDDX include not limited to CVA, cerebellar ischemia/infarct, carotid stenosis, vertebral/carotid artery dissection,, vertebrobasillary insufficiency, Intra cranial mass/infection/bleed, encephalopathy, elctrolyte abnormality, thyroid disease, multiple sclerosis, hypoglycemia, drug toxicity, cardiac arrhythmia, sub-theraputic anti-convulsion medications, known seizure disorder, pseudo- seizure.) X-Ray, Labs, Meds, VS Vital Signs Date Time Temp Pulse Resp B/P (MAP) Pulse Ox O2 Delivery O2 Flow Rate FiO2 02/10/25 18:01 98.4 82 15 133/75 (94) 100 98.4 Lab Test 02/10/25 22:04 02/10/25 18:52 02/10/25 18:50 02/10/25 17:47 Range/Units Troponin I High Sensitivity 21 18 15 </=54 ng/L Prothrombin Time 16.7 H 9.3-11.8 sec Prothrombin Time INR 1.66 H 0.9-1.15 POC Glucose 114 H 70-106 mg/dl White Blood Count 7.8 4.4-10.8 10^3/uL Red Blood Count 3.85 L 4.5-5.90 10^6/uL Hemoglobin 11.4 L 13.5-17.5 g/dL Hematocrit 34.2 L 41.0-53.0 % Mean Corpuscular Volume 88.8 80.0-100.0 fL Mean Corpuscular Hemoglobin 29.7 28.0-32.0 pg Mean Corpuscular Hemoglobin Concent 33.5 32.0-36.0 g/dL Red Cell Distribution Width 16.0 H 11.8-14.3 % Platelet Count 201 140-450 10^3/uL Mean Platelet Volume 8.4 6.9-10.8 fL Neutrophils (%) (Auto) 77.4 37.0-80.0 % Lymphocytes (%) (Auto) 13.0 10.0-50.0 % Monocytes (%) (Auto) 6.9 0.0-12.0 % Eosinophils (%) (Auto) 2.1 0.0-7.0 % Basophils (%) (Auto) 0.6 0.0-2.0 % Neutrophils # (Auto) 6.0 1.6-8.6 10 ^3/uL Lymphocytes # (Auto) 1.0 0.4-5.4 10 ^3/uL Monocytes # (Auto) 0.5 0-1.3 10 ^3/uL Eosinophils # (Auto) 0.2 0-0.8 10 ^3/uL Basophils # (Auto) 0.1 0-0.2 10 ^3/uL Nucleated Red Blood Cells 0.1 % Sodium Level 143 136-145 mmol/L Potassium Level 4.2 3.5-5.1 mmol/L Chloride Level 109 H 98-107 mmol/L Carbon Dioxide Level 26 20-31 mmol/L Anion Gap 8 5-15 Blood Urea Nitrogen 16 9-23 mg/dL Creatinine 1.37 H 0.700-1.30 mg/dL Glomerular Filtration Rate Calc 62 >90 mL/min BUN/Creatinine Ratio 11.7 10.0-20.0 Serum Glucose 109 H 74-106 mg/dL Lactic Acid Level 1.8 0.4-2.0 mmol/L Calcium Level 8.8 8.7-10.4 mg/dL Magnesium Level 1.8 1.6-2.6 mg/dL Total Bilirubin 0.2 0.2-1.0 mg/dL Aspartate Amino Transferase (AST) 38 13-40 U/L Alanine Aminotransferase (ALT) 46 H 7-40 U/L Alkaline Phosphatase 50 46-116 U/L Total Protein 6.4 5.7-8.2 g/dL Albumin 3.8 3.2-4.8 g/dL Levetiracetam Level Pending [address] [address] Ph: [phone] DIAGNOSTIC IMAGING Diagnostic Imaging Report : [id number] Signed PATIENT: KAIELE ABEL ACCT: [id number] UNIT: [id number] : 1975 LOC: ER ROOM / BED: / AGE / SEX: 50 / M ADM STATUS: REG ER SERVICE [id number] ORDERING PHYSICIAN: ADÁN BAUMANN DO PROCEDURE(s): HWOCT - HEAD WITHOUT CONTRAST REASON: seizure ORDER NUMBER(s): [id number], ACCESSION NUMBER(s): [id number] CT HEAD WITHOUT CONTRAST INDICATION: seizure EXAM DATE: 02/10/2025 06:32 PM COMPARISON: CT HEAD WITHOUT CONTRAST on DOS: 10/19/24, CT HEAD WITHOUT CONTRAST on DOS: 08/28/24 RADIATION DOSE: CTDIvol: 61.99 mGy, DLP: 1241.46 mGy*cm PROCEDURE: CT scans of the head were obtained from the vertex to the skull base. Sagittal and coronal reconstructions were provided. All CT scans at this medical facility are performed using dose modulation techniques as appropriate to a performed exam including the following: Automated exposure control was utilized; adjustment of the MA and/or KV according to patient size; and use of iterative reconstruction technique. FINDINGS: Evaluation is degraded by motion artifact. No acute territorial infarct, intracranial hemorrhage, or mass effect. There are mild involutional changes with compensatory prominence of the ventricles and sulci. Mild patchy periventricular and subcortical white matter hypoattenuation is nonspecific but may be related to small vessel ischemic disease. The orbits are normal. There is mild mucosal thickening within the right maxillary antrum. There is moderate debris in the right sphenoid sinus. The mastoid air cells are clear. The osseous structures are unremarkable. IMPRESSION: 1. No acute territorial infarct, intracranial hemorrhage, or mass effect. 2. Mild age-related changes. 3. Paranasal sinus disease as detailed. 4. If clinical symptoms persist, MRI may be beneficial in further evaluation. ATED BY: RUTH POOL MD DICTATED DATE/TIME: 02/10/251905 SIGNED BY: RUTH POOL MD SIGNED DATE/TIME: 02/10/251905 CC: Time of 1ST Reevaluation: 18:20 Reevaluation 1ST: Unchanged Time of 2ND Reevaluation: 19:13 (Patient has had a witnessed seizure episode here in the ED. Ativan 2 mg were ordered. Patient was placed on supplemental oxygen. Patient is awake shortly after the seizure.) Time of 3RD Reevaluation: 21:02 (The case was discussed with the admitting team (HPI, physical exam, labs and diagnostic tests that were available at the time of disposition, ED course, treatment plan) on the phone. They agreed to admit the patient to their service and assume care of this patient from this point forward. --- Fernando. ) Patient Education/Counseling: Diagnosis, Treatment Family Education/Counseling: No Family Present Comments Patient presented with the above HPI.--recurrent seizure----workup was initiated. patient was found with the above mentioned diagnosis. the following medications were ordered: please refer to order lists of meds and tests obtained by myself Dr. Baumann. Patient ED course and VS have been stabilized. Patient has been reassessed in [facility] ED and remained in a stable condition. Pertinent incidental findings were discussed with the patient and/or family. Patient/family voices understanding and is agreeable with plan. Patient has been observed in the ED adequate length of time to insure improvement/stability. Escalation of care considered: Consideration of escalation to observation or admission Patient was given Ativan for a witnessed seizure here in the ED then Lottie kinsey. Patient later had a 2nd witnessed seizure in the ED. We gave him an additional dose of Ativan. Patient was ADMITTED to the medicine team for further evaluation and treatment of their presentation. All the reports of any imaging studies that were ordered by myself were reviewed by myself. Departure 1 Departure Time of Disposition: 19:13 Impression: Primary Impression: Recurrent seizures Disposition: ADMITTED INPATIENT Admit to: [facility] Condition: Guarded Discharged With: Self Critical Care Note Critical Care Time?: Yes (45 min-critical care time only) Heart Score Heart Score: Heart Score Response (Comments) Value History N/A 0 EKG N/A 0 Age N/A 0 Risk Factors N/A 0 Troponin N/A 0 Total 0 I personally scribed for ADÁN BAUMANN DO ([email or web address]) on 02/10/25 at 18:04. Electronically submitted by Britni Moore ([email or web address]). I personally scribed for ADÁN BAUMANN DO ([email or web address]) on 02/10/25 at 18:06. Electronically submitted by Britni Moore ([email or web address]). I personally scribed for ADÁN BAUMANN DO ([email or web address]) on 02/10/25 at 18:12. Electronically submitted by Britni Moore ([email or web address]). I personally scribed for ADÁN BAUMANN DO ([email or web address]) on 02/10/25 at 18:24. Electronically submitted by Britni Moore ([email or web address]). I personally scribed for ADÁN BAUMANN DO ([email or web address]) on 02/10/25 at 19:37. Electronically submitted by Abigail Isaac ([email or web address]). ADÁN BAUMANN DO Feb 10, 2025 18:04
[2025-02-10 18:14] LABS: Hematocrit 34.2 % (41.0-53.0); Hemoglobin 11.4 g/dL (13.5-17.5); Mean Corpuscular Hemoglobin 29.7 pg (28.0-32.0); Mean Corpuscular Volume 88.8 fL (80.0-100.0); Nucleated Red Blood Cells % 0.1 %
[2025-02-10 18:39] LABS: Albumin 3.8 g/dL (3.2-4.8); Alkaline Phosphatase 50 U/L (46-116); Anion Gap 8 (5-15); BUN/Creatinine Ratio 11.7 (10.0-20.0); Blood Urea Nitrogen 16 mg/dL (9-23); Calcium 8.8 mg/dL (8.7-10.4); Carbon Dioxide 26 mmol/L (20-31); Magnesium 1.8 mg/dL (1.6-2.6); Potassium 4.2 mmol/L (3.5-5.1); Sodium 143 mmol/L (136-145); Total Protein 6.4 g/dL (5.7-8.2)
[2025-02-10 18:40] LABS: Alanine Aminotransferase 46 U/L (7-40); Chloride 109 mmol/L (98-107); Glucose 109 mg/dL (74-106)
[2025-02-10 18:42] LABS: Bilirubin, Total 0.2 mg/dL (0.2-1.0)
[2025-02-10] MEDS: levETIRAcetam 1000 mg/100ml 100 ML IV ONE (18:46)
--- NOTE | 2025-02-10 19:09 | DVH ---
CT HEAD WITHOUT CONTRAST INDICATION: seizure EXAM DATE: 02/10/2025 06:32 PM COMPARISON: CT HEAD WITHOUT CONTRAST on DOS: 10/19/24, CT HEAD WITHOUT CONTRAST on DOS: 08/28/24 RADIATION DOSE: CTDIvol: 61.99 mGy, DLP: 1241.46 mGy*cm PROCEDURE: CT scans of the head were obtained from the vertex to the skull base. Sagittal and coronal reconstructions were provided. All CT scans at this medical facility are performed using dose modulation techniques as appropriate t o a performed exam including the following: Automated exposure control was utilized; adjustment of th e MA and/or KV according to patient size; and use of iterative reconstruction technique. FINDINGS: Evaluation is degraded by motion artifact. No acute territorial infarct, intracranial hemorrhage, or mass effect. There are mild involutional ch anges with compensatory prominence of the ventricles and sulci. Mild patchy periventricular and subco rtical white matter hypoattenuation is nonspecific but may be related to small vessel ischemic diseas e. The orbits are normal. There is mild mucosal thickening within the right maxillary antrum. There is m oderate debris in the right sphenoid sinus. The mastoid air cells are clear. The osseous structures are unremarkable. IMPRESSION: 1. No acute territorial infarct, intracranial hemorrhage, or mass effect. 2. Mild age-related changes. 3. Paranasal sinus disease as detailed. 4. If clinical symptoms persist, MRI may be beneficial in further evaluation.
--- NOTE | 2025-02-10 21:32 | DVH ---
INDICATION: seizure TECHNIQUE: Frontal view of the chest. COMPARISON: XY CHEST PORTABLE on DOS: 08/28/24, XY CHEST XRAY 1 VIEW on DOS: 07/21/24 FINDINGS/IMPRESSION: Low lung volumes with crowding of the bronchovascular markings. There is prominence of the cardiomedi astinal silhouette, likely accentuated by technique. No definite pleural effusion or pneumothorax. No acute osseous abnormality.
[2025-02-10] MEDS: LORazepam 2MG/ML-1ML VIAL ONE (21:49)
[2025-02-10] MEDS: LORazepam 2MG/ML-1ML VIAL IV ONE (21:52)
[2025-02-10] MEDS ORDERED: NITROGLYCERIN 0.4 MG SL TAB SL PRN (22:15)
[2025-02-10] MEDS ORDERED: LORazepam 2MG/ML-1ML VIAL IV PRN (22:30)
[2025-02-10 23:07] LABS: INR 1.66 (0.9-1.15); Prothrombin Time 16.7 sec (9.3-11.8)
[2025-02-10 23:15] VITALS: PULSE 78; RESP 12; O2SAT 95
[2025-02-10] MEDS: SODIUM CHLORIDE 0.9% 1,000 ML IV ONE (23:48)
[2025-02-11] MEDS: SOD CHL 0.45% 1,000 ML IV ONE (01:38)
[2025-02-11 01:42] LABS: Urine Protein, UAD 1+ (Negative)
[2025-02-11] MEDS ORDERED: ACETAMINOPHEN 325 MG TAB PO PRN (02:00)
[2025-02-11 05:22] LABS: Hematocrit 32.0 % (41.0-53.0); Hemoglobin 11.0 g/dL (13.5-17.5); Mean Corpuscular Hemoglobin 30.3 pg (28.0-32.0); Mean Corpuscular Volume 88.3 fL (80.0-100.0); Nucleated Red Blood Cells % 0.1 %
[2025-02-11 05:35] LABS: Alanine Aminotransferase 39 U/L (7-40); Albumin 3.5 g/dL (3.2-4.8); Anion Gap 8 (5-15); BUN/Creatinine Ratio 10.7 (10.0-20.0); Bilirubin, Total 0.4 mg/dL (0.2-1.0); Blood Urea Nitrogen 14 mg/dL (9-23); Calcium 9.1 mg/dL (8.7-10.4); Carbon Dioxide 26 mmol/L (20-31); Glucose 91 mg/dL (74-106); Potassium 4.0 mmol/L (3.5-5.1); Sodium 143 mmol/L (136-145); Total Protein 5.9 g/dL (5.7-8.2)
[2025-02-11 05:57] LABS: Alkaline Phosphatase 43 U/L (46-116); Chloride 109 mmol/L (98-107)
--- NOTE | 2025-02-11 07:09 | DVHHP2 ---
Admitting Diagnosis: uncontrolled seizures History of Present Illness HPI 50 y.o. male with seizures, Afib, HTN was brought to the ED after having 2 episodes of seizures, witnessed by his family. Patient denies alcohol abuse. Patient stated he takes his seizure medications regularly. Home Meds Reported Medications Lacosamide (Vimpat) 50 Mg Tab, 50 MG PO BID for 30 Days, #60 TAB 1 Refill 08/29/24 Past Medical History Cardiac: HTN Central Nervous System: Seizure Patient Family History: Patient reports no known family medical history. H&P Exam Vital Signs Vital Signs Date Time Temp Pulse Resp B/P (MAP) Pulse Ox O2 Delivery O2 Flow Rate FiO2 02/11/25 06:25 69 19 154/58 (90) 94 02/10/25 23:15 Room Air* 0 21 02/10/25 18:01 98.4 98.4 General Appeara: Obese Head Exam: Normal inspection Neck Exam: Normal inspection Eye Exam: bilateral eye PERRL, bilateral eye EOMI Pulmonary/Respiratory: Lungs clear Cardiovascular/Chest: Regular rate Abdominal Exam: Soft MONITORING ANALYST Exam: Normal hearing, Normal speech, PERRL Neuro/Mental St: Alert, Oriented Labs/Xrays Labs Test 02/11/25 04:38 02/10/25 23:59 02/10/25 22:04 02/10/25 18:52 Range/Units White Blood Count 9.2 4.4-10.8 10^3/uL Red Blood Count 3.62 L 4.5-5.90 10^6/uL Hemoglobin 11.0 L 13.5-17.5 g/dL Hematocrit 32.0 L 41.0-53.0 % Mean Corpuscular Volume 88.3 80.0-100.0 fL Mean Corpuscular Hemoglobin 30.3 28.0-32.0 pg Mean Corpuscular Hemoglobin Concent 34.3 32.0-36.0 g/dL Red Cell Distribution Width 15.6 H 11.8-14.3 % Platelet Count 189 140-450 10^3/uL Mean Platelet Volume 8.5 6.9-10.8 fL Neutrophils (%) (Auto) 75.9 37.0-80.0 % Lymphocytes (%) (Auto) 16.5 10.0-50.0 % Monocytes (%) (Auto) 6.1 0.0-12.0 % Eosinophils (%) (Auto) 1.0 0.0-7.0 % Basophils (%) (Auto) 0.5 0.0-2.0 % Neutrophils # (Auto) 7.0 1.6-8.6 10 ^3/uL Lymphocytes # (Auto) 1.5 0.4-5.4 10 ^3/uL Monocytes # (Auto) 0.6 0-1.3 10 ^3/uL Eosinophils # (Auto) 0.1 0-0.8 10 ^3/uL Basophils # (Auto) 0 0-0.2 10 ^3/uL Nucleated Red Blood Cells 0.1 % Sodium Level 143 136-145 mmol/L Potassium Level 4.0 3.5-5.1 mmol/L Chloride Level 109 H 98-107 mmol/L Carbon Dioxide Level 26 20-31 mmol/L Anion Gap 8 5-15 Blood Urea Nitrogen 14 9-23 mg/dL Creatinine 1.31 H 0.700-1.30 mg/dL Glomerular Filtration Rate Calc 65 >90 mL/min BUN/Creatinine Ratio 10.7 10.0-20.0 Serum Glucose 91 74-106 mg/dL Calcium Level 9.1 8.7-10.4 mg/dL Total Bilirubin 0.4 0.2-1.0 mg/dL Aspartate Amino Transferase (AST) 34 13-40 U/L Alanine Aminotransferase (ALT) 39 7-40 U/L Alkaline Phosphatase 43 L 46-116 U/L Total Protein 5.9 5.7-8.2 g/dL Albumin 3.5 3.2-4.8 g/dL Urine Color Light-yellow Yellow Urine Clarity Clear Clear Urine pH 6.5 5.0-9.0 Urine Specific [place] 1.024 1.001-1.035 Urine Protein 1+ H Negative Urine Ketones Trace Negative Urine Blood 2+ H Negative /uL Urine Nitrite Negative Negative Urine Bilirubin Negative Negative Urine Urobilinogen Normal Negative mg/dL Urine Leukocyte Esterase Negative Negative /uL Urine RBC 17 0 - 3 /hpf Urine Microscopic WBC 2 0-3 /HPF Urine Squamous Epithelial Cells None seen <5 /hpf Urine Bacteria None seen None Seen /hpf Urine Mucus Few None Seen Urine Glucose Normal Normal mg/dL Troponin I High Sensitivity 21 </=54 ng/L Prothrombin Time 16.7 H 9.3-11.8 sec Prothrombin Time INR 1.66 H 0.9-1.15 Test 02/10/25 18:50 02/10/25 17:47 Range/Units POC Glucose 114 H 70-106 mg/dl Lactic Acid Level 1.8 0.4-2.0 mmol/L Magnesium Level 1.8 1.6-2.6 mg/dL Assessment/Plan Problem List: (1) Uncontrolled seizures Plan MRI, neurology consult, Lela Tafoya Plan discussed with: Patient [place] MD Feb 11, 2025 07:09
[2025-02-11 07:30] VITALS: PULSE 65; RESP 20; O2SAT 94
[2025-02-11] MEDS: levETIRAcetam 500 mg/100ml 100 ML IV SCH (09:22)
[2025-02-11 09:30] VITALS: TEMP 98.3
--- NOTE | 2025-02-11 12:40 | DVHDS2 ---
New Physician D'charge PN Admitting Diagnosis Admitting Diagnosis (1) Discharge Diagnosis epilepsy Operations or Procedures none Reason(s) For Hospitalization Surgery Hospital Course 50 M who comes to ER for breakthrough seizure. He has been to the ER multiple times. He has a hx of seizure d/o and takes PO meds at home. HE was admitted and loaded with keppra and head ct was nml. His CBC and chem panel was nml. Patient was observed and did not have any more seizures throughout his hospital stay. He will be restarted on his home seizure meds, He is A/0x4 and will be dc home with outpt follow up with pcp and neurology via [facility]. Treatment Plan Discharge Condition of Discharge Good Disposition Home Discharge Instructions Diet: Consistent carbohydrate, Cardiac 2g Na,low cholest Activity: No Restrictions, As Tolerated Medications: see med sheet Follow Up Care Follow Up/Referral: pcp demetriceuro Discharge Statement: "Patient was advised to return to the ER or call 911 if any headaches, dizziness, shortness of breath, chest pain, abdominal pain, bleeding, fevers, or worsening of medical condition. Patient was counseled about treatment plan, medications, possible side effects, patientverbalized understanding. All questions were answered to the best of my ability. This discharge took greater then 30 minutes in planning, reviewing documentation, counseling the patient, and discussing with other team members." GAURAV HANCOCK MD Feb 11, 2025 12:40 1: seizure
[2025-02-11 13:28] VITALS: BP 133/74; PULSE 84; RESP 18; O2SAT 98
== END 2025-02-11 14:41 | disposition home or self-care (01) | DRG 101 ==
LOC: ER 17:24 → EDBD 17:24 → OVERFLOW 22:13
PROVIDERS: ADMIT Internal Medicine; ATTEND Internal Medicine
DX: G40.909 Epilepsy, unspecified, not intractable, without status epilepticus (principal); I10 Essential (primary) hypertension; I48.91 Unspecified atrial fibrillation; Z79.899 Other long term (current) drug therapy
CPT/HCPCS: 36415; 70450; 71045; 80053; 81001; 82542; 82962; 83605; 83735; 84484; 85025; 85610; 96365; 96375; G0378

== ENCOUNTER 2025-03-29 17:21 | Inpatient (IN) | payer OTHER ==
[~2025-03-29] VITALS: Ht 177.8 cm; Wt 136.1 kg
--- NOTE | 2025-03-29 17:49 | ECG ---
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
--- NOTE | 2025-03-29 18:07 | ED.PDOC ---
HPI (NEURO) HPI Comments 50-year-old male with a history of AFib, epilepsy on Keppra, ESRD, heart disease and hypertension brought in by EMS from home status post seizure witnessed by family that lasted about 2 minutes, tonic-clonic, causing him to fall off of his bed onto the floor. On arrival by EMS, patient was noted to have a superficial laceration on his left cheek, abrasions on his right cheek, a small hematoma on his left forehead, and was postictal. After being loaded onto the EMS gurney, the patient had another tonic-clonic seizure. EMS administered Versed 5 mg IM with resolution of seizure activity. Patient states he is not having pain, nausea, vomiting, dizziness or other symptoms. Chief Complaint: Seizure Time Seen by MD: 17:35 Primary Care Provider: UNKNOWN Reviewed Notes: Nurses Notes, Medications, Allergies Information Source: Patient, Emergency Med Personnel Mode of Arrival: EMS Past Medical History PAST MEDICAL HISTORY: AFIB, HTN, Seizures Past Medical History (Other): Heart problem Surgical History: Unobtainable Family History Family History: Unobtainable Social History Smoker: Non-Smoker Alcohol: Denies ETOH Use Drugs: Denies Drug Use Lives In: Home Unable to Obtain due to: Altered Mental Status (Comprehensive systems review unobtainable due to patient's postictal status) Physical Exam General Appearance: No Apparent Distress, Obese HEENT: Other (Pupils and face symmetric. Moist mucous membranes. Superficial closed subcentimeter laceration left cheek, superficial abrasion right cheek, small hematoma left forehead) Neck: Full Range of Motion, Normal Inspection, Supple, Other (Midline and paraspinal neck tenderness to palpation) Respiratory: Lungs Clear, No Accessory Muscle Use, No Respiratory Distress, Normal Breath Sounds Cardiovascular: No Edema, No JVD, Regular Rate/Rhythm Breast Exam: Deferred Gastrointestinal: Non Tender, Soft Genitalia: Deferred Pelvic: Deferred Rectal: Deferred Extremities: Normal inspection, Normal range of motion, Non-tender, No pedal ed david Neurologic: Alert (Oriented x4), Normal Affect, Normal Mood, Other (Moves all extremities and follows commands. No gross focal deficit.) Cerebellar Function: NOT DONE Reflexes: NOT DONE Skin: Dry, Normal Color, Warm Lymphatic: NOT DONE EKG EKG : Comments Sinus tach, rate 112, normal intervals, left axis deviation, possible old inferior infarct, nonspecific T change. Was a procedure done? Was a procedure done?: No Differential Diagnosis (SZ) Seizure: Psychogenic Seizure, Alcohol Withdrawl, Anticonvulsant Withdrawl, Closed Head Injury, CVA/TIA, Mass Lesion, Syncope, Encephalopathy, Epilepsy- Break Through, Epilepsy-Status CVA: Electrolyte Imbalance Headache: Epidural Hemorrhage, Intracerebral Hemorrhage, Subarachnoid Hemorrhage, Subdural Hemorrhage X-Ray, Labs, Meds, VS Vital Signs Date Time Temp Pulse Resp B/P (MAP) Pulse Ox O2 Delivery O2 Flow Rate FiO2 03/29/25 20:26 98.3 81 17 138/86 (103) 95 98.3 03/29/25 19:30 81 17 95 Nasal Cannula* 2 28 03/29/25 19:01 93 16 96 Nasal Cannula* 2 28 03/29/25 19:01 98.5 93 16 138/89 (105) 96 98.5 03/29/25 17:47 112 03/29/25 17:27 98.0 138 15 109/67 97 98.0 Lab Test 03/29/25 21:10 03/29/25 21:00 03/29/25 19:17 03/29/25 18:40 Range/Units Troponin I High Sensitivity 58 *H 33 </=54 ng/L Urine Color Yellow Yellow Urine Clarity Clear Clear Urine pH 5.5 5.0-9.0 Urine Specific [place] 1.021 1.001-1.035 Urine Protein 1+ H Negative Urine Ketones Negative Negative Urine Blood 2+ H Negative /uL Urine Nitrite Negative Negative Urine Bilirubin Negative Negative Urine Urobilinogen Normal Negative mg/dL Urine Leukocyte Esterase Negative Negative /uL Urine RBC 10 0 - 3 /hpf Urine Microscopic WBC 1 0-3 /HPF Urine Squamous Epithelial Cells Few <5 /hpf Urine Bacteria None seen None Seen /hpf Urine Mucus Few None Seen Urine Glucose Normal Normal mg/dL Urine Opiates Screen Pending Urine Fentanyl Screen Pending Urine Barbiturates Screen Pending Urine Phencyclidine Screen Pending Urine Amphetamines Screen Pending Urine Benzodiazepines Screen Pending Urine Cocaine Screen Pending Urine Cannabinoids Screen Pending POC Glucose 110 H 70-106 mg/dl Test 03/29/25 17:54 Range/Units White Blood Count 9.6 4.4-10.8 10^3/uL Red Blood Count 5.02 4.5-5.90 10^6/uL Hemoglobin 13.0 L 13.5-17.5 g/dL Hematocrit 40.6 L 41.0-53.0 % Mean Corpuscular Volume 80.8 80.0-100.0 fL Mean Corpuscular Hemoglobin 25.9 L 28.0-32.0 pg Mean Corpuscular Hemoglobin Concent 32.0 32.0-36.0 g/dL Red Cell Distribution Width 16.0 H 11.8-14.3 % Platelet Count 226 140-450 10^3/uL Mean Platelet Volume 8.2 6.9-10.8 fL Neutrophils (%) (Auto) 80.6 H 37.0-80.0 % Lymphocytes (%) (Auto) 9.3 L 10.0-50.0 % Monocytes (%) (Auto) 8.6 0.0-12.0 % Eosinophils (%) (Auto) 1.0 0.0-7.0 % Basophils (%) (Auto) 0.5 0.0-2.0 % Neutrophils # (Auto) 7.8 1.6-8.6 10 ^3/uL Lymphocytes # (Auto) 0.9 0.4-5.4 10 ^3/uL Monocytes # (Auto) 0.8 0-1.3 10 ^3/uL Eosinophils # (Auto) 0.1 0-0.8 10 ^3/uL Basophils # (Auto) 0 0-0.2 10 ^3/uL Nucleated Red Blood Cells 0.1 % Sodium Level 140 136-145 mmol/L Potassium Level 4.3 3.5-5.1 mmol/L Chloride Level 105 98-107 mmol/L Carbon Dioxide Level 21 20-31 mmol/L Anion Gap 14 5-15 Blood Urea Nitrogen 14 9-23 mg/dL Creatinine 1.65 H 0.700-1.30 mg/dL Glomerular Filtration Rate Calc 50 >90 mL/min BUN/Creatinine Ratio 8.5 L 10.0-20.0 Serum Glucose 113 H 74-106 mg/dL Calcium Level 9.6 8.7-10.4 mg/dL Troponin I High Sensitivity 14 </=54 ng/L Levetiracetam Level Pending Plasma/Serum Blood Alcohol < 3.0 <10 mg/dL Current Medications Medications (Trade) Dose Ordered Sig/Daly Route Start Time Stop Time Status Last Admin Sodium Chloride 1,000 ml @ 1,000 mls/hr Q1H ONCE IV 03/29/25 17:45 03/29/25 18:44 DC 03/29/25 18:33 Levetiracetam 100 ml @ 400 mls/hr ONCE ONCE IV 03/29/25 18:00 03/29/25 18:14 DC 03/29/25 18:33 Acetaminophen/ Hydrocodone Bitart ([place] 10/325MG Tab) 1 tab ONCE ONCE PO 03/29/25 20:45 03/29/25 20:46 DC 03/29/25 20:59 Lorazepam (Ativan Inj) 1 mg ONCE ONCE IV 03/29/25 21:15 03/29/25 21:16 DC 03/29/25 21:15 [place] [address] Ph: [phone] DIAGNOSTIC IMAGING Diagnostic Imaging Report : [id number] Signed PATIENT: KAILEE ABEL ACCT: [id number] UNIT: [id number] : 1975 LOC: ER ROOM / BED: / AGE / SEX: 50 / M ADM STATUS: REG ER SERVICE 386 ORDERING PHYSICIAN: BELLA ZIMMERMAN MD PROCEDURE(s): FAC2C - MAXILLOFACIAL WITHOUT REASON: sz, trauma ORDER NUMBER(s): [id number], ACCESSION NUMBER(s): [id number] HISTORY: sz, trauma TECHNIQUE: Nonenhanced axial images through the facial bones with coronal and sagittal MPR. Radiation Dose Information: CT Dose: CTDI volume is 67 mGy. Dose-length product is 1297 mGy*cm COMPARISON: CT HEAD WITHOUT CONTRAST on DOS: 03/29/25, CT HEAD WITHOUT CONTRAST on DOS: 02/10/25, CT HEAD WITHOUT CONTRAST on DOS: 10/19/24, MRI BRAIN HEAD WO CONTRAST on DOS: 08/29/24, CT HEAD WITHOUT CONTRAST on DOS: 08/28/24 FINDINGS: Mandible: Unremarkable Maxilla: Unremarkable Zygomatic arches: Unremarkable Nasal bone: Unremarkable Orbits: Unremarkable Sinuses: Clear Facial swelling: None IMPRESSION: 1. No acute facial fractures. Radiation optimization: All CT scans at this facility use at least one of these dose optimization techniques: automated exposure control mA and/or kV adjustment per patient size (includes targeted exams where dose is matched to clinical indication) or iterative reconstruction. ATED BY: JOELLEN WHITAKER MD DICTATED DATE/TIME: 03/29/251833 SIGNED BY: JOELLEN WHITAKER MD SIGNED DATE/TIME: 03/29/251833 CC: [place] [address] Ph: [phone] DIAGNOSTIC IMAGING Diagnostic Imaging Report : [id number] Signed PATIENT: KAILEE ABEL ACCT: [id number] UNIT: [id number] : 1975 LOC: ER ROOM / BED: / AGE / SEX: 50 / M ADM STATUS: REG ER SERVICE 35 ORDERING PHYSICIAN: BELLA ZIMMERMAN MD PROCEDURE(s): HWOCT - HEAD WITHOUT CONTRAST REASON: sz, trauma ORDER NUMBER(s): [id number], ACCESSION NUMBER(s): [id number] EXAM: CT HEAD WITHOUT CONTRAST INDICATION: sz, trauma TECHNIQUE: CT of the head without intravenous contrast. Radiation Dose Information: CT Dose: CTDI volume is 56.63 mGy. Dose-length product is 1059.61 mGy*cm The dose indicators for CT are the volume Computed Tomography (CT) Dose Index (CTDIvol) and the Dose Length Product (DLP), and are measured in units of mGy and mGy-cm, respectively. These indicators are not patient dose, but values generated from the CT scanner acquisition factors. The report includes radiation exposure data for exposures received during this examination. COMPARISON: CT HEAD WITHOUT CONTRAST on DOS: 02/10/25, CT HEAD WITHOUT CONTRAST on DOS: 10/19/24, MRI BRAIN HEAD WO CONTRAST on DOS: 08/29/24 FINDINGS: There is no evidence of acute intracranial hemorrhage, extra-axial collection, mass effect, midline shift, herniation or hydrocephalus. The ventricles, sulci and cisterns are age appropriate. The boston-white differentiation is intact. Patchy periventricular and subcortical white matter hypoattenuation is nonspecific but may be related to small vessel ischemic disease. The visualized paranasal sinuses and mastoid air cells are clear. The surrounding soft tissues and osseous structures are unremarkable. IMPRESSION: 1. No acute intracranial abnormality. 2. No significant change from 02/10/2025 ATED BY: HAKEEM SOLITARIO Jr., DO DICTATED DATE/TIME: 03/29/251831 SIGNED BY: HAKEEM SOLITARIO Jr., SIGNED DATE/TIME: 03/29/251831 CC: [place] [address] Ph: [phone] DIAGNOSTIC IMAGING Diagnostic Imaging Report : [id number] Signed PATIENT: KAILEE ABEL ACCT: [id number] UNIT: [id number] : 1975 LOC: ER ROOM / BED: / AGE / SEX: 50 / M ADM STATUS: REG ER SERVICE 35 ORDERING PHYSICIAN: BELLA ZIMMERMAN MD PROCEDURE(s): CS2 - CERVICAL WITHOUT CONTRAST REASON: sz, trauma ORDER NUMBER(s): [id number], ACCESSION NUMBER(s): [id number] EXAM: CT CERVICAL WITHOUT CONTRAST INDICATION: sz, trauma EXAM DATE: 03/29/2025 06:02 PM COMPARISON: None TECHNIQUE: Multiple axial CT images of the cervical spine were obtained using bone algorithm. Axial and coronal reformatting was done. Bone and soft tissue windows were reviewed. Radiation Dose Information: CT Dose: CTDI volume is 30 mGy. Dose-length product is 720 mGy*cm FINDINGS: The cervical alignment is intact. No acute cervical spine fracture is identified. The vertebral body heights are intact. No suspicious osseous lesions are identified. No significant degenerative changes are identified. There is no prevertebral soft tissue swelling. IMPRESSION: 1. No evidence of acute cervical spine fracture or traumatic malalignment. All CT scans at this medical facility are performed using dose modulation maggie hniques as appropriate to a performed exam including the following: Automated exposure control was utilized; adjustment of the MA and/or KV according to patient size; and use of iterative reconstruction technique. ATED BY: JOELLEN WHITAKER MD DICTATED DATE/TIME: 03/29/251835 SIGNED BY: JOELLEN WHITAKER MD SIGNED DATE/TIME: 03/29/25 [id number] CC: X-Ray, Labs, Meds, VS Comment 50-year-old male with a history of AFib, epilepsy on Keppra, ESRD, heart disease and hypertension brought in by EMS from home status post seizure x2 Vitals remarkable for heart rate 138 Exam remarkable for superficial facial lacerations, abrasions and forehead hematoma, midline and paraspinal neck tenderness Rhythm strip independently interpreted by me: Sinus tach, rate twelve, no ectopy. CT head, CT maxillofacial, CT cervical spine unremarkable for any acute injury CBC, basic metabolic panel and serum alcohol level unremarkable. UA, urine drug screen and levetiracetam level pending Patient treated with the following in the ED: Keppra 1 g IV, Ativan 1 mg IV Patient had 1 recurrent seizure in the ED, tonic-clonic, lasting less than a minute despite receiving Versed by EMS and 1 g of Keppra IV in the ED. He received 1 mg of Ativan IV after the seizure On re-evaluation, he was somewhat postictal, but was able to answer yes or no and follow commands. Plan is to admit the patient for neuro evaluation. Discussed with Dr. King, who will admit the patient. Time of 1ST Reevaluation: 18:05 Reevaluation 1ST: Unchanged Patient Education/Counseling: Diagnosis, Treatment Family Education/Counseling: No Family Present Departure 1 Departure Time of Disposition: 19:00 Impression: Primary Impression: Breakthrough seizure Disposition: ADMITTED INPATIENT Admit to: Tele Condition: Guarded Critical Care Note Critical Care Time?: No Stability Stability form required: No Heart Score Heart Score: Heart Score Response (Comments) Value History N/A 0 EKG N/A 0 Age N/A 0 Risk Factors N/A 0 Troponin N/A 0 Total 0 I personally scribed for BELLA ZIMMERMAN MD ([email or web address]) on 03/29/25 at 19:20. Electronically submitted by Dwayne De Leon [email or web address]). BELLA ZIMMERMAN MD Mar 29, 2025 18:07
[2025-03-29 18:14] LABS: Chloride 105 mmol/L (98-107); Potassium 4.3 mmol/L (3.5-5.1); Sodium 140 mmol/L (136-145)
[2025-03-29 18:15] LABS: Anion Gap 14 (5-15); Calcium 9.6 mg/dL (8.7-10.4); Carbon Dioxide 21 mmol/L (20-31)
[2025-03-29 18:19] LABS: Hematocrit 40.6 % (41.0-53.0); Hemoglobin 13.0 g/dL (13.5-17.5); Mean Corpuscular Hemoglobin 25.9 pg (28.0-32.0); Mean Corpuscular Volume 80.8 fL (80.0-100.0); Nucleated Red Blood Cells % 0.1 %
[2025-03-29 18:20] LABS: BUN/Creatinine Ratio 8.5 (10.0-20.0); Blood Urea Nitrogen 14 mg/dL (9-23)
[2025-03-29 18:25] LABS: Glucose 113 mg/dL (74-106)
[2025-03-29] MEDS: SODIUM CHLORIDE 0.9% 1,000 ML IV ONE (18:33)
[2025-03-29] MEDS: levETIRAcetam 1000 mg/100ml 100 ML IV ONE (18:33)
--- NOTE | 2025-03-29 18:34 | DVH ---
EXAM: CT HEAD WITHOUT CONTRAST INDICATION: sz, trauma TECHNIQUE: CT of the head without intravenous contrast. Radiation Dose Information: CT Dose: CTDI volume is 56.63 mGy. Dose-length product is 1059.61 mGy*cm The dose indicators for CT are the volume Computed Tomography (CT) Dose Index (CTDIvol) and the Dose Length Product (DLP), and are measured in units of mGy and mGy-cm, respectively. These indicators are not patient dose, but values generated from the CT scanner acquisition factors. The report includes radiation exposure data for exposures received during this examination. COMPARISON: CT HEAD WITHOUT CONTRAST on DOS: 02/10/25, CT HEAD WITHOUT CONTRAST on DOS: 10/19/24, MRI BR AIN HEAD WO CONTRAST on DOS: 08/29/24 FINDINGS: There is no evidence of acute intracranial hemorrhage, extra-axial collection, mass effect, midline s hift, herniation or hydrocephalus. The ventricles, sulci and cisterns are age appropriate. The boston-white differentiation is intact. Patchy periventricular and subcortical white matter hypoattenuation is nonspecific but may be related to small vessel ischemic disease. The visualized paranasal sinuses and mastoid air cells are clear. The surrounding soft tissues and osseous structures are unremarkable. IMPRESSION: 1. No acute intracranial abnormality. 2. No significant change from 02/10/2025
--- NOTE | 2025-03-29 18:37 | DVH ---
HISTORY: sz, trauma TECHNIQUE: Nonenhanced axial images through the facial bones with coronal and sagittal MPR. Radiation Dose Information: CT Dose: CTDI volume is 67 mGy. Dose-length product is 1297 mGy*cm COMPARISON: CT HEAD WITHOUT CONTRAST on DOS: 03/29/25, CT HEAD WITHOUT CONTRAST on DOS: 02/10/25, CT HEA D WITHOUT CONTRAST on DOS: 10/19/24, MRI BRAIN HEAD WO CONTRAST on DOS: 08/29/24, CT HEAD WITHOUT CONTR AST on DOS: 08/28/24 FINDINGS: Mandible: Unremarkable Maxilla: Unremarkable Zygomatic arches: Unremarkable Nasal bone: Unremarkable Orbits: Unremarkable Sinuses: Clear Facial swelling: None IMPRESSION: 1. No acute facial fractures. Radiation optimization: All CT scans at this facility use at least one of these dose optimization maggie hniques: automated exposure control mA and/or kV adjustment per patient size (includes targeted exam s where dose is matched to clinical indication) or iterative reconstruction.
--- NOTE | 2025-03-29 18:38 | DVH ---
EXAM: CT CERVICAL WITHOUT CONTRAST INDICATION: sz, trauma EXAM DATE: 03/29/2025 06:02 PM COMPARISON: None TECHNIQUE: Multiple axial CT images of the cervical spine were obtained using bone algorithm. Axial a nd coronal reformatting was done. Bone and soft tissue windows were reviewed. Radiation Dose Information: CT Dose: CTDI volume is 30 mGy. Dose-length product is 720 mGy*cm FINDINGS: The cervical alignment is intact. No acute cervical spine fracture is identified. The vertebral body heights are intact. No suspicious osseous lesions are identified. No significant degenerative changes are identified. There is no prevertebral soft tissue swelling. IMPRESSION: 1. No evidence of acute cervical spine fracture or traumatic malalignment. All CT scans at this medical facility are performed using dose modulation techniques as appropriate t o a performed exam including the following: Automated exposure control was utilized; adjustment of th e MA and/or KV according to patient size; and use of iterative reconstruction technique.
[2025-03-29 19:01] VITALS: PULSE 93; RESP 16; O2SAT 96
[2025-03-29 19:30] VITALS: PULSE 81; RESP 17; O2SAT 95
[2025-03-29 20:55] VITALS: PULSE 84; RESP 16; O2SAT 94
[2025-03-29] MEDS: HYDROcodone-ACET 10/325MG TAB PO ONE (20:59)
[2025-03-29] MEDS: LORazepam 2MG/ML-1ML VIAL IV ONE (21:15)
[2025-03-29] MEDS: LORazepam 2MG/ML-1ML VIAL ONE (21:22)
[2025-03-29 21:36] LABS: Urine Protein, UAD 1+ (Negative)
[2025-03-29 21:48] LABS: Amphetamine Screen, Urine Neg (NEGATIVE); Barbiturate Scree,Urine Neg (NEGATIVE); Benzodiazephine Screen, Urine Pos (NEGATIVE); Cannabinoid Screen, Urine Neg (NEGATIVE); Cocaine Screen, Urine Neg (NEGATIVE); Opiate Scree,Urine Neg (NEGATIVE); Phencyclidine Screen, Urine Neg (NEGATIVE)
[2025-03-29] MEDS ORDERED: NITROGLYCERIN 0.4 MG SL TAB SL PRN (22:30)
[2025-03-29] MEDS ORDERED: MORPHINE SULFATE INJ 2 MG/ml SYRG IV PRN (22:30)
[2025-03-29] MEDS ORDERED: LORazepam 2MG/ML-1ML VIAL IV PRN (23:00)
[2025-03-30 04:20] LABS: Hematocrit 36.3 % (41.0-53.0); Hemoglobin 12.1 g/dL (13.5-17.5); Mean Corpuscular Hemoglobin 26.7 pg (28.0-32.0); Mean Corpuscular Volume 80.4 fL (80.0-100.0); Nucleated Red Blood Cells % 0.1 %
[2025-03-30 04:34] LABS: Alanine Aminotransferase 40 U/L (7-40); Albumin 3.9 g/dL (3.2-4.8); Alkaline Phosphatase 54 U/L (46-116); Anion Gap 11 (5-15); BUN/Creatinine Ratio 8.3 (10.0-20.0); Blood Urea Nitrogen 12 mg/dL (9-23); Calcium 9.0 mg/dL (8.7-10.4); Carbon Dioxide 24 mmol/L (20-31); Chloride 106 mmol/L (98-107); Glucose 96 mg/dL (74-106); Potassium 3.9 mmol/L (3.5-5.1); Sodium 141 mmol/L (136-145); Total Protein 7.0 g/dL (5.7-8.2)
[2025-03-30 04:35] LABS: Bilirubin, Total 0.5 mg/dL (0.2-1.0)
--- NOTE | 2025-03-30 08:36 | DVHHP2 ---
Admitting Diagnosis: Recurrent seizure, poorly controlled seizure disorder History of Present Illness HPI 50 y.o. male with poorly controlled epilepsy, frequent recurrent seizures, Afib, HTN, CHF, CKD, morbid obesity was brought to the ER with recurrent seizure at home witnessed by his family. EMS reported that it lasted 2 min, was tonic- clonic, causing him to fall of his bed to the floor. EMS found the patient in postictal phase with lacerations, bruises and abrasions on his face. After being loaded onto the EMS gurney, the patient had another tonic-clonic seizure. EMS administered Versed 5 mg IM. Per ER MD patient had another seizure after Keppra 1g IV administered on arrival. CT of the head showed no injuries. Patient denied pain, CP, SOB and other symptoms. Home Meds Reported Medications Lacosamide (Vimpat) 50 Mg Tab, 50 MG PO BID for 30 Days, #60 TAB 1 Refill 08/29/24 Past Medical History Cardiac: CAD, CHF, HTN Central Nervous System: Seizure Renal/: CKD Patient Family History: Patient reports no known family medical history. Review of Systems All Other Systems seizures H&P Exam Vital Signs Vital Signs Date Time Temp Pulse Resp B/P (MAP) Pulse Ox O2 Delivery O2 Flow Rate FiO2 03/30/25 08:00 69 03/30/25 07:51 Nasal Cannula* 2 28 03/30/25 06:00 18 128/87 (101) 98 03/30/25 03:24 98.2 98.2 General Appeara: Obese Head Exam: Ecchymosis, Lacerations Neck Exam: Normal inspection Eye Exam: bilateral eye PERRL, bilateral eye EOMI Pulmonary/Respiratory: Normal breath sounds Cardiovascular/Chest: Regular rate Abdominal Exam: Soft [employer] Exam: PERRL Deep Tendon Ref: All intact Neuro/Mental St: Alert, Depressed affect SEPSIS Sepsis Screen Date sepsis recognized/suspect: Mar 29, 2025 Time Sepsis recognized/suspect: 2054 Recent Procedure: No On Antibiotic Therapy: No Respiratory Rate >20: No Heart Rate >90: No Temp<36 C (96.8 F) or >38.3 C: No SBP <90 or MAP <65 mmHG: No New Acute Mental Status Change: No Is the patient on CPAP, BIPAP,: No Vital Signs Date Time Temp Pulse Resp B/P (MAP) Pulse Ox O2 Delivery O2 Flow Rate FiO2 03/30/25 08:00 69 03/30/25 07:51 Nasal Cannula* 2 28 03/30/25 06:41 72 03/30/25 06:00 72 18 128/87 (101) 98 03/30/25 03:24 98.2 81 18 132/68 (89) 96 98.2 03/30/25 02:00 69 15 148/85 (106) 95 Laboratory Tests Test 03/30/25 03:56 White Blood Count 10.2 10^3/uL (4.4-10.8) Medications Medications Dose Ordered Sig/Daly Route Start Time Stop Time Status Last Admin Dose Admin Acetaminophen/ Hydrocodone Bitart 1 tab ONCE ONCE PO 03/29/25 20:45 03/29/25 20:46 DC 03/29/25 20:59 1 TAB Lorazepam 1 mg ONCE ONCE IV 03/29/25 21:15 03/29/25 21:16 DC 03/29/25 21:15 1 MG Labs/Xrays Labs Test 03/30/25 03:56 03/29/25 21:10 03/29/25 21:00 03/29/25 18:40 Range/Units White Blood Count 10.2 4.4-10.8 10^3/uL Red Blood Count 4.51 4.5-5.90 10^6/uL Hemoglobin 12.1 L 13.5-17.5 g/dL Hematocrit 36.3 #L 41.0-53.0 % Mean Corpuscular Volume 80.4 80.0-100.0 fL Mean Corpuscular Hemoglobin 26.7 L 28.0-32.0 pg Mean Corpuscular Hemoglobin Concent 33.2 32.0-36.0 g/dL Red Cell Distribution Width 16.1 H 11.8-14.3 % Platelet Count 203 140-450 10^3/uL Mean Platelet Volume 8.0 6.9-10.8 fL Neutrophils (%) (Auto) 77.5 37.0-80.0 % Lymphocytes (%) (Auto) 14.3 10.0-50.0 % Monocytes (%) (Auto) 6.6 0.0-12.0 % Eosinophils (%) (Auto) 0.6 0.0-7.0 % Basophils (%) (Auto) 1.0 0.0-2.0 % Neutrophils # (Auto) 7.9 1.6-8.6 10 ^3/uL Lymphocytes # (Auto) 1.5 0.4-5.4 10 ^3/uL Monocytes # (Auto) 0.7 0-1.3 10 ^3/uL Eosinophils # (Auto) 0.1 0-0.8 10 ^3/uL Basophils # (Auto) 0.1 0-0.2 10 ^3/uL Nucleated Red Blood Cells 0.1 % Sodium Level 141 136-145 mmol/L Potassium Level 3.9 3.5-5.1 mmol/L Chloride Level 106 98-107 mmol/L Carbon Dioxide Level 24 20-31 mmol/L Anion Gap 11 5-15 Blood Urea Nitrogen 12 9-23 mg/dL Creatinine 1.44 H 0.700-1.30 mg/dL Glomerular Filtration Rate Calc 58 >90 mL/min BUN/Creatinine Ratio 8.3 L 10.0-20.0 Serum Glucose 96 74-106 mg/dL Calcium Level 9.0 8.7-10.4 mg/dL Total Bilirubin 0.5 0.2-1.0 mg/dL Aspartate Amino Transferase (AST) 32 13-40 U/L Alanine Aminotransferase (ALT) 40 7-40 U/L Alkaline Phosphatase 54 46-116 U/L Total Protein 7.0 5.7-8.2 g/dL Albumin 3.9 3.2-4.8 g/dL Troponin I High Sensitivity 58 *H </=54 ng/L Urine Color Yellow Yellow Urine Clarity Clear Clear Urine pH 5.5 5.0-9.0 Urine Specific [place] 1.021 1.001-1.035 Urine Protein 1+ H Negative Urine Ketones Negative Negative Urine Blood 2+ H Negative /uL Urine Nitrite Negative Negative Urine Bilirubin Negative Negative Urine Urobilinogen Normal Negative mg/dL Urine Leukocyte Esterase Negative Negative /uL Urine RBC 10 0 - 3 /hpf Urine Microscopic WBC 1 0-3 /HPF Urine Squamous Epithelial Cells Few <5 /hpf Urine Bacteria None seen None Seen /hpf Urine Mucus Few None Seen Urine Glucose Normal Normal mg/dL Urine Opiates Screen Neg NEGATIVE Urine Fentanyl Screen Neg NEGATIVE Urine Barbiturates Screen Neg NEGATIVE Urine Phencyclidine Screen Neg NEGATIVE Urine Amphetamines Screen Neg NEGATIVE Urine Benzodiazepines Screen Pos NEGATIVE Urine Cocaine Screen Neg NEGATIVE Urine Cannabinoids Screen Neg NEGATIVE POC Glucose 110 H 70-106 mg/dl Test 03/29/25 17:54 Range/Units Plasma/Serum Blood Alcohol < 3.0 <10 mg/dL Assessment/Plan Problem List: (1) Uncontrolled seizures (2) Recurrent seizures (3) Elevated troponin Plan Lela Tafoya, Neurology consult, ECHO Plan discussed with: Patient [place] MD Mar 30, 2025 08:36
[2025-03-30] MEDS: levETIRAcetam 1000 mg/100ml 100 ML IV SCH (09:07)
[2025-03-30] MEDS: LACOSAMIDE 50 MG TAB PO SCH (22:29)
[2025-03-31 05:01] VITALS: BP 150/76; PULSE 73; RESP 16; O2SAT 93
[2025-03-31 08:00] VITALS: TEMP 98.6
--- NOTE | 2025-03-31 08:24 | DVHSR ---
APPROVED REPORT EXAM: LIMITED Two-dimensional and M-mode echocardiogram with Doppler and color Doppler. Blood Pressure: 128/87 mmHg INDICATION Elevated Troponin RISK FACTORS Obesity: Height: 5' 10", Weight: 300 DIMENSIONS LVDd5.4 (3.8-5.7cm)LA (2D)4.4 (1.9-4.0cm)Aortic Root4.0 (2.0-3.7cm) LVDs4.0 (2.5-4.0cm)LA (MM) (1.9-4.0cm)Aortic Cusp Exc1.8 (1.5-2.0cm) EF (%) 50.0 (55-70%)Rt. Atrium3.7 (1.9-4.0cm)Asc. Aorta cm IVSd1.1 (0.7-1.1cm)RV (D) (1.8-2.4cm) PWd1.1 (0.7-1.1cm) Mitral Valve MitralMitral Stenosis E wave0.70m/sMV Mean GR.mmHg A wave0.60m/sMV Peak GR.mmHg E/A ratio1.22D MVAcm2 Aortic Valve Aortic ValveAortic Stenosis V10.80m/Isabel Mean GR.7mmHg V21.70m/Isabel Peak GR.12mmHg LVOT Diameter2.4 (1.8-2.4cm)Doppler AVA2.13cm2 Pulmonic Valve V21.00m/s Other Information Quality : Technically LimitedRhythm : Technically limited study due to body habitus. Conclusion lvef 55% grade 1 diastolic dysfunction normal RV functoin but probably enlarged, not well seen normla atria no severe valve abnormalities noted pericardial fat pad
--- NOTE | 2025-03-31 09:24 | DVHINCON2 ---
Date of service: Mar 31, [address] Shelley Reason for Consultation Uncontrolled seizure History of Present Illness He has more than one charts in [facility], (MR #:[id number], MR #:[id number], MR #: [id number]) Mr. Augustine is a left-handed gentleman with a history of obesity, atrial fibrillation, seizure disorder, JEANNINE on CPAP. He came to the hospital on 11/24/2024 with a chief complaint of seizure activity. At the time, he is alert and fully oriented, he provided the following history I saw him on 11/21/2016, 04/14/17, 07/16/18, 08/10/2018, 12/11/2018, 01/13/2019, 02/17/2019, 05/19/2020 (MR #:[id number]), 09/18/22, 09/16/2024, 11/25/2024 for seizure activity. There were atypical features in the seizure on 02/17/2019 He does not remember, but he was told that he had a 2-minute's seizure before he was brought to the hospital. According to ER documentation, it was a generalized tonic-clonic seizure witnessed by the family, when he is falling down to the floor, he sustained bruises in the head/this He has seizure disorder since age of 13. He reports complete amnesia about his seizure, but he was told that he lost his consciousness, shaking all over the body, he has had tongue biting and urinary incontinence during the seizure. He has seizure about once monthly He also has another type of seizure, where he spaces out briefly. This can be a warning of the general shaking seizure, he only has this kind of seizure once a while He has had no seizure since he came to the hospital He sees Dr. Ramirez, he is on Lamotrigine 200 mg b.i.d., Keppra 1500 mg b.i.d., Vimpat, 100 mg b.i.d. he also takes Coumadin 7.5 mg q.d. for AFib He talked to [facility] once, no treatment was given UD/: Benzo Plasma alcohol, 03/26/2025: <3 Urinalysis, UA, 03/29/2025: Unremarkable CBC, 03/26/25: HGB: 12.1 BUN/CR: 12/ GFR /11/24 5:50 a.m. Liver function tests, 03/30/2025: Unremarkable Troponin one 03/29/25: 33, 03/30/25: 58, 03/30/25: 69 CT head, 09/17/2022: No intracranial hemorrhage. Recommend MRI if symptoms persist. CT head, 09/15/2024: 1. No acute intracranial hemorrhage 2. No CT findings of territorial ischemia. 3. No intracranial masses CTA head,03/29/25: 1. No acute intracranial abnormality. 2. No significant change from 02/10/2025 MRI head, 09/16/2024: Unremarkable noncontrast MRI brain Past Medical History Obesity, atrial fibrillation, seizure disorder, obstructive sleep apnea, not able to tolerate CPAP Past Surgical History None Family History: Patient reports no known family medical history. Family History Hypertension, diabetes Social History The patient denies a history of alcohol or drug abuse (ER note 09/15/24: Opiate dependence) Allergies: Coded Allergies: Codeine (Unverified Allergy, Unknown, 07/21/24) Ibuprofen (Unverified Allergy, Unknown, 07/21/24) Home Meds Reported Medications Lacosamide (Vimpat) 50 Mg Tab, 50 MG PO BID for 30 Days, #60 TAB 1 Refill 08/29/24 Current Medications Current Medications Medications (Trade) Dose Ordered Sig/Daly Route PRN Reason Start Time Stop Time Status Last Admin Levetiracetam 100 ml @ 400 mls/hr BID IV 03/30/25 10:00 03/30/25 22:29 Lacosamide (Vimpat) 50 mg BID PO 03/30/25 22:00 03/30/25 22:29 Review of Systems As above, the other systems are negative Vital Signs Vital Signs Date Time Temp Pulse Resp B/P (MAP) Pulse Ox O2 Delivery O2 Flow Rate FiO2 03/31/25 09:00 Nasal Cannula* 4 36 03/31/25 08:00 98.6 68 15 154/84 (107) 95 98.6 Physical Exam GENERAL EXAM: General: the patient is well developed and nourished. No acute distress. HEENT: Normocephalic except for bruises in the face, neck is supple, no carotid bruits. No mass RESPIRATORY: Normal respiratory effort with symmetrical lung expansion. Lungs clear to auscultation. CARDIOVASCULAR: Regular rate and rhythm with no murmurs. S1, S2. ABDOMEN: Soft, nontender, normal bowel sound NEUROLOGICAL: MENTAL STATUS: Awake and alert. Oriented to person, place, time and general circumstances. Able to give personal history SPEECH, LANGUAGE, HIGHER CORTICAL FUNCTION: no aphasia or dysathria. CRANIAL NERVES: #2: Intact visual pino to confrontation. The optic discs were sharp #3,4,6: Pupils are equal, round and reactive. EOMs full and conjugate. No nystagmus. #5: Facial sensation intact in all three divisions bilaterally. Mandibular strength intact. #7: Facial muscles symmetrical and strength intact. #8: Hearing grossly normal to voice. #9,10: Uvula and soft palate rise in the midline. Swallow and voice are normal. #11: Trapezius and sternomastoid strength intact bilaterally. #12: Tongue midline. No fasciculations or atrophy. SENSATION: Sensation to touch and pinprick is normal. MOTOR: Normal tone in the upper and lower extremity. Normal muscle bulk. No fasciculations. No abnormal movements or posturing. Muscle strength of the major groups in the upper extremities is 5/5. Muscle strength of the major groups in the lower extremities is 5/5. REFLEXES: Deep tendon reflexes normal and symmetrical. No pathological reflexes. CEREBELLAR/COORDINATION: Finger to nose is normal bilaterally. GAIT/STATION: deferred. Labs/Diagnostic Data Labs Test 03/30/25 06:56 03/30/25 03:56 03/29/25 21:00 03/29/25 18:40 Range/Units Troponin I High Sensitivity 69 *H </=54 ng/L White Blood Count 10.2 4.4-10.8 10^3/uL Red Blood Count 4.51 4.5-5.90 10^6/uL Hemoglobin 12.1 L 13.5-17.5 g/dL Hematocrit 36.3 #L 41.0-53.0 % Mean Corpuscular Volume 80.4 80.0-100.0 fL Mean Corpuscular Hemoglobin 26.7 L 28.0-32.0 pg Mean Corpuscular Hemoglobin Concent 33.2 32.0-36.0 g/dL Red Cell Distribution Width 16.1 H 11.8-14.3 % Platelet Count 203 140-450 10^3/uL Mean Platelet Volume 8.0 6.9-10.8 fL Neutrophils (%) (Auto) 77.5 37.0-80.0 % Lymphocytes (%) (Auto) 14.3 10.0-50.0 % Monocytes (%) (Auto) 6.6 0.0-12.0 % Eosinophils (%) (Auto) 0.6 0.0-7.0 % Basophils (%) (Auto) 1.0 0.0-2.0 % Neutrophils # (Auto) 7.9 1.6-8.6 10 ^3/uL Lymphocytes # (Auto) 1.5 0.4-5.4 10 ^3/uL Monocytes # (Auto) 0.7 0-1.3 10 ^3/uL Eosinophils # (Auto) 0.1 0-0.8 10 ^3/uL Basophils # (Auto) 0.1 0-0.2 10 ^3/uL Nucleated Red Blood Cells 0.1 % Sodium Level 141 136-145 mmol/L Potassium Level 3.9 3.5-5.1 mmol/L Chloride Level 106 98-107 mmol/L Carbon Dioxide Level 24 20-31 mmol/L Anion Gap 11 5-15 Blood Urea Nitrogen 12 9-23 mg/dL Creatinine 1.44 H 0.700-1.30 mg/dL Glomerular Filtration Rate Calc 58 >90 mL/min BUN/Creatinine Ratio 8.3 L 10.0-20.0 Serum Glucose 96 74-106 mg/dL Calcium Level 9.0 8.7-10.4 mg/dL Total Bilirubin 0.5 0.2-1.0 mg/dL Aspartate Amino Transferase (AST) 32 13-40 U/L Alanine Aminotransferase (ALT) 40 7-40 U/L Alkaline Phosphatase 54 46-116 U/L Total Protein 7.0 5.7-8.2 g/dL Albumin 3.9 3.2-4.8 g/dL Urine Color Yellow Yellow Urine Clarity Clear Clear Urine pH 5.5 5.0-9.0 Urine Specific [place] 1.021 1.001-1.035 Urine Protein 1+ H Negative Urine Ketones Negative Negative Urine Blood 2+ H Negative /uL Urine Nitrite Negative Negative Urine Bilirubin Negative Negative Urine Urobilinogen Normal Negative mg/dL Urine Leukocyte Esterase Negative Negative /uL Urine RBC 10 0 - 3 /hpf Urine Microscopic WBC 1 0-3 /HPF Urine Squamous Epithelial Cells Few <5 /hpf Urine Bacteria None seen None Seen /hpf Urine Mucus Few None Seen Urine Glucose Normal Normal mg/dL Urine Opiates Screen Neg NEGATIVE Urine Fentanyl Screen Neg NEGATIVE Urine Barbiturates Screen Neg NEGATIVE Urine Phencyclidine Screen Neg NEGATIVE Urine Amphetamines Screen Neg NEGATIVE Urine Benzodiazepines Screen Pos NEGATIVE Urine Cocaine Screen Neg NEGATIVE Urine Cannabinoids Screen Neg NEGATIVE POC Glucose 110 H 70-106 mg/dl Test 03/29/25 17:54 Range/Units Plasma/Serum Blood Alcohol < 3.0 <10 mg/dL Assessment Grand mal seizure Partial complex seizure Plan/Recommendation Monitoring Supportive treatment Telemetry Keppra 1500 mg twice a day Lamictal 250mg Bid Vimpat 200 mg b.i.d. Ativan for seizure breakthrough Okay to discharge from neurologic point of view Follow up with his doctors, including neurologist on discharge Resume his home seizure medication after discharge SLOAN Prognosis: Poor This medical document was created using an electronic medical record system with [employer] dictation system. Although this document has been carefully reviewed, there may still be some phonetic and typographical errors. These areas are purely typographical due to imperfections of the software programs, and do not reflect any compromise in the patient's medical care Plan discussed with: Patient, Other ALEXX SINGER MD Mar 31, 2025 09:24
[2025-03-31 14:00] VITALS: BP 144/92; PULSE 67; RESP 19; O2SAT 98
--- NOTE | 2025-03-31 15:26 | DVHDS2 ---
Discharge Summary Date of Admission Mar 29, 2025 at 22:22 Date of Discharge: Mar 31, 2025 Labs/Diagnostic Data: Laboratory Results Test 03/30/25 06:56 03/30/25 03:56 03/29/25 21:00 03/29/25 18:40 Troponin I High Sensitivity 69 ng/L (</=54) White Blood Count 10.2 10^3/uL (4.4-10.8) Red Blood Count 4.51 10^6/uL (4.5-5.90) Hemoglobin 12.1 g/dL (13.5-17.5) Hematocrit 36.3 % (41.0-53.0) Mean Corpuscular Volume 80.4 fL (80.0-100.0) Mean Corpuscular Hemoglobin 26.7 pg (28.0-32.0) Mean Corpuscular Hemoglobin Concent 33.2 g/dL (32.0-36.0) Red Cell Distribution Width 16.1 % (11.8-14.3) Platelet Count 203 10^3/uL (140-450) Mean Platelet Volume 8.0 fL (6.9-10.8) Neutrophils (%) (Auto) 77.5 % (37.0-80.0) Lymphocytes (%) (Auto) 14.3 % (10.0-50.0) Monocytes (%) (Auto) 6.6 % (0.0-12.0) Eosinophils (%) (Auto) 0.6 % (0.0-7.0) Basophils (%) (Auto) 1.0 % (0.0-2.0) Neutrophils # (Auto) 7.9 10 ^3/uL (1.6-8.6) Lymphocytes # (Auto) 1.5 10 ^3/uL (0.4-5.4) Monocytes # (Auto) 0.7 10 ^3/uL (0-1.3) Eosinophils # (Auto) 0.1 10 ^3/uL (0-0.8) Basophils # (Auto) 0.1 10 ^3/uL (0-0.2) Nucleated Red Blood Cells 0.1 % Sodium Level 141 mmol/L (136-145) Potassium Level 3.9 mmol/L (3.5-5.1) Chloride Level 106 mmol/L (98-107) Carbon Dioxide Level 24 mmol/L (20-31) Anion Gap 11 (5-15) Blood Urea Nitrogen 12 mg/dL (9-23) Creatinine 1.44 mg/dL (0.700-1.30) Glomerular Filtration Rate Calc 58 mL/min (>90) BUN/Creatinine Ratio 8.3 (10.0-20.0) Serum Glucose 96 mg/dL (74-106) Calcium Level 9.0 mg/dL (8.7-10.4) Total Bilirubin 0.5 mg/dL (0.2-1.0) Aspartate Amino Transferase (AST) 32 U/L (13-40) Alanine Aminotransferase (ALT) 40 U/L (7-40) Alkaline Phosphatase 54 U/L (46-116) Total Protein 7.0 g/dL (5.7-8.2) Albumin 3.9 g/dL (3.2-4.8) Urine Color Yellow (Yellow) Urine Clarity Clear (Clear) Urine pH 5.5 (5.0-9.0) Urine Specific [place] 1.021 (1.001-1.035) Urine Protein 1+ (Negative) Urine Ketones Negative (Negative) Urine Blood 2+ /uL (Negative) Urine Nitrite Negative (Negative) Urine Bilirubin Negative (Negative) Urine Urobilinogen Normal mg/dL (Negative) Urine Leukocyte Esterase Negative /uL (Negative) Urine RBC 10 /hpf (0 - 3) Urine Microscopic WBC 1 /HPF (0-3) Urine Squamous Epithelial Cells Few /hpf (<5) Urine Bacteria None seen /hpf (None Seen) Urine Mucus Few (None Seen) Urine Glucose Normal mg/dL (Normal) Urine Opiates Screen Neg (NEGATIVE) Urine Fentanyl Screen Neg (NEGATIVE) Urine Barbiturates Screen Neg (NEGATIVE) Urine Phencyclidine Screen Neg (NEGATIVE) Urine Amphetamines Screen Neg (NEGATIVE) Urine Benzodiazepines Screen Pos (NEGATIVE) Urine Cocaine Screen Neg (NEGATIVE) Urine Cannabinoids Screen Neg (NEGATIVE) POC Glucose 110 mg/dl (70-106) Test 03/29/25 17:54 Plasma/Serum Blood Alcohol < 3.0 mg/dL (<10) Other Laboratory Tests 03/30/25 03:56 Brief Hx & Hospital Course: Patient is a 50-year-old male with past medical history of epilepsy with recurrent breakthrough seizures who presents after a witnessed tonic-clonic seizure. Patient presented after falling and raising his head. In the ER, he underwent a CT brain without contrast which did not reveal any acute intracranial abnormalities. Patient was started on Keppra. He was evaluated by neurology. Patient was monitored for over 24 hours without any recurrence in seizures. Patient appeared to return to his baseline. Patient is to resume his home medications. Patient discharged in stable condition. Condition at Discharge: Fair Final Diagnosis/Problems List Epilepsy Secondary Diagnosis: Morbid Obesity CKD Discharge Disposition: Home Discharge Instruct/Medications Diet: Consistent carbohydrate Activity: No Restrictions, As Tolerated Activity comment: No driving. Follow Up/Referral: Follow up with neurology. Medications: Resume home anti-seizure medications as prescribed. Lamotrigine 200 mg b.i.d., Keppra 1500 mg b.i.d., Vimpat, 100 mg b.i.d. Scheduled Lacosamide (Vimpat), 50 MG PO BID, (Reported) Discharge Statement: "Patient was advised to return to the ER or call 911 if any headaches, dizziness, shortness of breath, chest pain, abdominal pain, bleeding, fevers, or worsening of medical condition. Patient was counseled about treatment plan, medications, possible side effects, patientverbalized understanding. All questions were answered to the best of my ability. This discharge took greater then 30 minutes in planning, reviewing documentation, counseling the patient, and discussing with other team members." ASSESSMENT ASSESSMENT Assessment Epilepsy JANETTE LOBATO DO Mar 31, 2025 15:26
== END 2025-03-31 15:51 | disposition home or self-care (01) | DRG 101 ==
LOC: EDBD 17:21 → ER 17:21 → OVERFLOW 22:22
PROVIDERS: ADMIT Internal Medicine; ATTEND Internal Medicine
DX: G40.219 Localization-related (focal) (partial) symptomatic epilepsy and epileptic syndromes with complex partial seizures, intractable, without status epilepticus (principal); I13.0 Hypertensive heart and chronic kidney disease with heart failure and stage 1 through stage 4 chronic kidney disease, or unspecified chronic kidney disease; Z68.41 Body mass index [BMI] 40.0-44.9, adult; E66.01 Morbid (severe) obesity due to excess calories; I25.10 Atherosclerotic heart disease of native coronary artery without angina pectoris; N18.9 Chronic kidney disease, unspecified; I48.91 Unspecified atrial fibrillation; I50.9 Heart failure, unspecified; G47.33 Obstructive sleep apnea (adult) (pediatric); Z79.01 Long term (current) use of anticoagulants; Z82.49 Family history of ischemic heart disease and other diseases of the circulatory system; Z83.3 Family history of diabetes mellitus; Z88.8 Allergy status to other drugs, medicaments and biological substances; Z88.5 Allergy status to narcotic agent; Z79.899 Other long term (current) drug therapy; S00.81XA Abrasion of other part of head, initial encounter; W19.XXXA Unspecified fall, initial encounter
CPT/HCPCS: 36415; 70450; 70486; 72125; 80048; 80053; 80307; 80320; 81001; 82542; 82962; 84484; 85025; 93005; 93306; 96365; G0378

== ENCOUNTER 2025-05-14 21:57 | Emergency (ER) | payer OTHER ==
[~2025-05-14] VITALS: Ht 175.3 cm; Wt 102.7 kg
--- NOTE | 2025-05-14 22:05 | ED.PDOC ---
HPI (NEURO) HPI Comments Discharge summary 03/31/25 Epilepsy Secondary Diagnosis: Morbid Obesity CKD HPI: 50 year old male presents to the ED via EMS with a chief complaint of seizure onset today (05/14/25) about 1 hour prior to ED arrival. Per EMS, family called 911 due to patient experiencing witnessed seizure, focal seizure lasted approximately 1 minute, there was no fall or head injury. Patient has been seen in this ED several times for similar symptoms. According to EMS, patient is post-ictal. He is compliant with his Keppra medication. Patient is a poor historian. No other symptoms or modifying factors present at this time. Initial Vitals BP: 135/95 HR: 95 RR: 17 O2: 96% Temp: 99.0 F Past Medical History: seizure, a-fib, HTN, CKD Past Surgical History: Denies Social History: Denies ETOH, smoking, and drug use. Medications: Keppra Allergies: Codeine, Ibuprofen irizarry: seizure HPI: Poor Historian. On my evaluation patient is no longer postictal. Past Medical History: Past Surgical History: REVIEW OF SYSTEMS: CONSTITUTIONAL: Denies acute: fever, diaphoresis, chills, generalized weakness. HEAD: Denies acute: headache, photophobia Eyes: Denies acute: Double vision, vision loss, eye pain, eye discharge. EARS: Denies acute: tinnitus, hearing loss, ear discharge, ear pain, THROAT: Denies acute: sore throat, swelling, difficulty swallowing , pain with swallowing, change in voice. NECK: Denies acute: neck pain, neck swelling, stiff neck. HEART: Denies acute : chest pain, palpitations, LUNGS: Denies acute: SOB, wheezing, cough, hemoptysis ABDOMEN: Denies acute: abdominal pain, Nausea, Vomiting, diarrhea, melena , hematemesis, hematochezia SKIN: Denies acute: rash, redness, lesions, itchiness. EXTREMITIES: Denies acute: calf pain, numbness, tingling, weakness, denies pain in extremity. Denies acute: Low back pain. Neuro: Denies acute: focal neurological deficit, motor or sensory focal neurological deficit, loss of bowel or bladder function, cauda equina like symptoms. : Denies acute: dysuria, hematuria, flank pain, increase in urinary frequency. PSYCH: Denies acute: hallucination, suicidal ideation, homicidal ideation. PHYSICAL EXAM: General: ---no-----acute distress, awake and alert. Head: normocephalic, atraumatic. Neck: supple, trachea is midline, no swelling. Throat: Normal phonation. Eyes:, no erythema, no purulent discharge, no proptosis, no icterus. Heart: regular rate, regular rhythm, no significant murmur appreciated. Lungs: no apparent respiratory distress, Able to speak in full sentences. No wheezing, no rhonchi, no crackles. No stridors Clear to auscultation bilaterally. Abdomen: non tender to palpation, non distended, soft, no guarding, no rebound, + bowel sounds. Morbidly obese Neuro: Awake, Alert, oriented to name, self, situation, follows commands GCS=15. Speech is normal. Skin: no petechia, no purpura, no cyanosis, non-pale, not jaundice. Lower extremities: --trace bilateral - Pitting edema no deformity, no focal swelling, no calf TTP. Makes eye contact. moves all four extremities. Face: no apparent facial droop. No nuchal rigidity, Kernig's sign, Brudzinski's sign, no meningeal signs. ED COURSE: DISCLAIMER: This medical document was created using an electronic medical record system with voice recognition software and computerized dictation system. Although this document has been carefully reviewed, there might still be some phonetic and typographical errors. Occasional wrong-word or "sound-alike" substitutions may have occurred due to the inherent limitations of voice recognition software. These areas are purely typographical due to imperfections of the software programs and do not reflect any compromise in the patient's medical care. Please read the chart carefully and recognize, using context, where these substitutions have occurred. Time Seen by MD: 21:55 Primary Care Provider: UNKNOWN Reviewed Notes: Medications, Allergies Information Source: Patient, Emergency Med Personnel Mode of Arrival: EMS Severity: Moderate Timing: Hours Duration: Since onset Prehospital treatment: None Past Medical History PAST MEDICAL HISTORY: AFIB, CKF, HTN, Seizures Surgical History: Unobtainable Family History Family History: Unobtainable Social History Smoker: Non-Smoker Alcohol: Denies ETOH Use Drugs: Denies Drug Use Lives In: Home EKG EKG : Pulse Rate (adult): 97 Cardiac Rhythm: NSR Was a procedure done? Was a procedure done?: No Differential Diagnosis (SZ) Seizure: Other (SEIZUREDDX include not limited to CVA, cerebellar ischemia/infarct, carotid stenosis, vertebral/carotid artery dissection,, vertebrobasillary insufficiency, Intracranial mass/infection/bleed, encephalopathy, elctrolyte abnormality, thyroid disease, multiple sclerosis, hypoglycemia, drug toxicity, cardiac arrhythmia, sub-theraputic anti-convulsion medications, known seizure disorder, pseudo-seizure.) X-Ray, Labs, Meds, VS Vital Signs Date Time Temp Pulse Resp B/P (MAP) Pulse Ox O2 Delivery O2 Flow Rate FiO2 05/15/25 06:01 98.0 80 12 150/77 (101) 94 98.0 05/15/25 05:15 83 14 145/83 (103) 97 05/15/25 03:01 109 17 135/84 (101) 97 05/15/25 02:51 111 18 164/77 (106) 98 05/15/25 02:11 74 18 155/92 (113) 92 05/15/25 01:00 78 15 96 Room Air* 0 21 05/15/25 01:00 98.0 78 15 146/88 (107) 96 98.0 05/14/25 22:10 97 05/14/25 22:07 97 05/14/25 22:01 99.0 98 15 135/95 97 99.0 Lab Test 05/14/25 22:57 05/14/25 22:15 Range/Units Troponin I High Sensitivity 10 11 </=54 ng/L White Blood Count 10.2 4.4-10.8 10^3/uL Red Blood Count 5.45 4.5-5.90 10^6/uL Hemoglobin 13.3 L 13.5-17.5 g/dL Hematocrit 41.3 41.0-53.0 % Mean Corpuscular Volume 75.9 L 80.0-100.0 fL Mean Corpuscular Hemoglobin 24.4 L 28.0-32.0 pg Mean Corpuscular Hemoglobin Concent 32.2 32.0-36.0 g/dL Red Cell Distribution Width 18.2 H 11.8-14.3 % Platelet Count 219 140-450 10^3/uL Mean Platelet Volume 8.1 6.9-10.8 fL Neutrophils (%) (Auto) 79.9 37.0-80.0 % Lymphocytes (%) (Auto) 11.8 10.0-50.0 % Monocytes (%) (Auto) 7.1 0.0-12.0 % Eosinophils (%) (Auto) 0.7 0.0-7.0 % Basophils (%) (Auto) 0.5 0.0-2.0 % Neutrophils # (Auto) 8.2 1.6-8.6 10 ^3/uL Lymphocytes # (Auto) 1.2 0.4-5.4 10 ^3/uL Monocytes # (Auto) 0.7 0-1.3 10 ^3/uL Eosinophils # (Auto) 0.1 0-0.8 10 ^3/uL Basophils # (Auto) 0.1 0-0.2 10 ^3/uL Nucleated Red Blood Cells 0.1 % Sodium Level 143 136-145 mmol/L Potassium Level 4.3 3.5-5.1 mmol/L Chloride Level 107 98-107 mmol/L Carbon Dioxide Level 25 20-31 mmol/L Anion Gap 11 5-15 Blood Urea Nitrogen 15 9-23 mg/dL Creatinine 1.69 H 0.700-1.30 mg/dL Glomerular Filtration Rate Calc 48 >90 mL/min BUN/Creatinine Ratio 8.9 L 10.0-20.0 Serum Glucose 113 H 74-106 mg/dL Lactic Acid Level 1.0 0.4-2.0 mmol/L Calcium Level 9.7 8.7-10.4 mg/dL Magnesium Level 1.9 1.6-2.6 mg/dL Total Bilirubin 0.4 0.2-1.0 mg/dL Aspartate Amino Transferase (AST) 36 13-40 U/L Alanine Aminotransferase (ALT) 50 H 7-40 U/L Alkaline Phosphatase 63 46-116 U/L Total Protein 8.1 5.7-8.2 g/dL Albumin 4.5 3.2-4.8 g/dL Current Medications Medications (Trade) Dose Ordered Sig/Daly Route Start Time Stop Time Status Last Admin Levetiracetam 100 ml @ 400 mls/hr ONCE ONCE IV 05/14/25 22:00 05/14/25 22:14 DC 05/15/25 01:39 Lorazepam (Ativan Inj) 2 mg ONCE ONCE IV 05/15/25 02:45 05/15/25 02:46 DC 05/15/25 02:44 Levetiracetam 100 ml @ 400 mls/hr ONCE ONCE IV 05/15/25 06:00 05/15/25 06:14 DC 05/15/25 05:59 [place] [address] Ph: [phone] DIAGNOSTIC IMAGING Diagnostic Imaging Report : [id number] Signed PATIENT: KAILEE ABEL ACCT: [id number] UNIT: [id number] : 1975 LOC: ER ROOM / BED: / AGE / SEX: 50 / M ADM STATUS: REG ER SERVICE 99 ORDERING PHYSICIAN: ADÁN BAUMANN DO PROCEDURE(s): CXRP - CHEST PORTABLE REASON: seizure ORDER NUMBER(s): [id number], ACCESSION NUMBER(s): [id number] CHEST RADIOGRAPH Indication: seizure Technique: 1 view Comparison: XY CHEST PORTABLE on DOS: 02/10/25, XY CHEST PORTABLE on DOS: 08/28/24, XY CHEST XRAY 1 VIEW on DOS: 07/21/24, XY CHEST PORTABLE on DOS: 06/13/23, XY CHEST XRAY 1 VIEW on DOS: 11/26/22 FINDINGS: Soft tissue attenuation and beam underpenetration limits assessment. Lines and Tubes: None. Lungs/Pleura: Similar low lung volumes. No focal consolidation, pleural effusion or pneumothorax. Cardiomediastinum: Size within normal limits for technique. Other: No acute osseous abnormality. IMPRESSION: 1. No acute cardiopulmonary abnormality or significant change from prior exam. ATED BY: KRISTEN FARIAS MD DICTATED DATE/TIME: 05/15/2541 SIGNED BY: KRISTEN FARIAS MD SIGNED DATE/TIME: 05/15/2541 CC: Time of 1ST Reevaluation: 22:25 Reevaluation 1ST: Unchanged Time of 2ND Reevaluation: 05:51 ([facility]. She recommends to given additional g of Keppra and she will evaluate the patient on the camera.) Patient Education/Counseling: Diagnosis, Treatment Family Education/Counseling: No Family Present Assigned to Dr. Dr. Cueva Comments MDM: patient presented with the above HPI.---seizure---workup was initiated. patient was found with the above mentioned diagnosis. the following medications were ordered: please refer to order lists of meds and tests obtained by myself Dr. Baumann. Patient ED course and VS have been stabilized. Patient has been reassessed in the ED and remained in a stable condition. Patient has been observed in the ED adequate length of time to insure improvement/stability. Escalation of care considered: Consideration of escalation to observation or admission Patient received Keppra earlier 1 g. Patient had one episode of seizure here in the ED. Ativan was given. Patient was there were few hours and did not have any additional seizures. [facility] was consulted and recommended an additional 1 g of Keppra. They were unable to complete evaluation. Please see their consultation notes. All the reports of any imaging studies that were ordered by myself were reviewed by myself. The care of this patient was signed out to my colleague Dr. Cueva for final disposition Departure 1 Departure Time of Disposition: 23:57 Impression: Primary Impression: Breakthrough seizure Disposition: 01 HOME / SELF CARE / HOMELESS Condition: Stable Additional Instructions: Additional instructions: Please read all instructions provided in this packet carefully. You MUST follow-up with your primary care/family doctor in 1 to 2 days. If you are unable to see your primary care/family doctor, please return to our emergency room for re-assessment and re-evaluation in 1 to 2 days. Return to the emergency room here in our facility or to the nearest ER [facility] if your symptoms change or worsen. CONSULTATIONS: you MUST Follow-up for consultation as soon as possible with: -neurology in 1-2 days. Please call for appointment. You MUST call the consultants office yourself to make an appointment. You may need to arrange that through your insurance and/or your primary/family doctor. If you are unable to see the healthcare risk control consultant in 1 to 2 days, you must return to our emergency room (or any other ER of your choice) for re-assessment and re- evaluation. Adequate fluid hydration. Although you have been discharged from the Emergency Department, this does not mean that you have a "clean bill of health". No definitive diagnosis for your symptoms has been made today. It is possible that you are in the process of developing a serious illness. This is why you must return to the ED without fail if any new or worsening symptoms develop. Discharged With: Self Critical Care Note Critical Care Time?: Yes (45 min-critical care time only) I personally scribed for ADÁN BAUMANN DO ([email or web address]) on 05/14/25 at 22:05. Electronically submitted by Nicol Mann ([email or web address]). I personally scribed for ADÁN BAUMANN DO ([email or web address]) on 05/14/25 at 22:10. Electronically submitted by Nicol Mann ([email or web address]). I personally scribed for ADÁN BAUMANN DO ([email or web address]) on 05/15/25 at 01:14. Electronically submitted by Nicol Mann ([email or web address]). ADÁN BAUMANN DO May 14, 2025 22:05
[2025-05-14 22:35] LABS: Hematocrit 41.3 % (41.0-53.0); Hemoglobin 13.3 g/dL (13.5-17.5); Mean Corpuscular Hemoglobin 24.4 pg (28.0-32.0); Mean Corpuscular Volume 75.9 fL (80.0-100.0); Nucleated Red Blood Cells % 0.1 %
--- NOTE | 2025-05-14 22:50 | ECG ---
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
[2025-05-14 22:54] LABS: Albumin 4.5 g/dL (3.2-4.8); Alkaline Phosphatase 63 U/L (46-116); Anion Gap 11 (5-15); BUN/Creatinine Ratio 8.9 (10.0-20.0); Bilirubin, Total 0.4 mg/dL (0.2-1.0); Blood Urea Nitrogen 15 mg/dL (9-23); Calcium 9.7 mg/dL (8.7-10.4); Carbon Dioxide 25 mmol/L (20-31); Chloride 107 mmol/L (98-107); Magnesium 1.9 mg/dL (1.6-2.6); Potassium 4.3 mmol/L (3.5-5.1); Sodium 143 mmol/L (136-145); Total Protein 8.1 g/dL (5.7-8.2)
[2025-05-14 23:00] LABS: Alanine Aminotransferase 50 U/L (7-40); Glucose 113 mg/dL (74-106)
--- NOTE | 2025-05-15 00:44 | DVH ---
CHEST RADIOGRAPH Indication: seizure Technique: 1 view Comparison: XY CHEST PORTABLE on DOS: 02/10/25, XY CHEST PORTABLE on DOS: 08/28/24, XY CHEST XRAY 1 VIEW on DOS: 07/21/24, XY CHEST PORTABLE on DOS: 06/13/23, XY CHEST XRAY 1 VIEW on DOS: 11/26/22 FINDINGS: Soft tissue attenuation and beam underpenetration limits assessment. Lines and Tubes: None. Lungs/Pleura: Similar low lung volumes. No focal consolidation, pleural effusion or pneumothorax. Cardiomediastinum: Size within normal limits for technique. Other: No acute osseous abnormality. IMPRESSION: 1. No acute cardiopulmonary abnormality or significant change from prior exam.
[2025-05-15 01:00] VITALS: PULSE 78; RESP 15; O2SAT 96
[2025-05-15] MEDS: levETIRAcetam 1000 mg/100ml 100 ML IV ONE ×2 (01:39→05:59)
[2025-05-15] MEDS: LORazepam 2MG/ML-1ML VIAL ONE (02:44)
[2025-05-15] MEDS: LORazepam 2MG/ML-1ML VIAL IV ONE (02:44)
[2025-05-15 07:30] VITALS: PULSE 66; RESP 12; TEMP 98.4; O2SAT 98
--- NOTE | 2025-05-15 09:10 | ED.PDOC ---
Departure 1 Departure Time of Disposition: 23:57 Impression: Primary Impression: Breakthrough seizure Disposition: 01 HOME / SELF CARE / HOMELESS Condition: Stable Additional Instructions: Additional instructions: Please read all instructions provided in this packet carefully. You MUST follow-up with your primary care/family doctor in 1 to 2 days. If you are unable to see your primary care/family doctor, please return to our emergency room for re-assessment and re-evaluation in 1 to 2 days. Return to the emergency room here in our facility or to the nearest ER [facility] if your symptoms change or worsen. CONSULTATIONS: you MUST Follow-up for consultation as soon as possible with: -neurology in 1-2 days. Please call for appointment. You MUST call the consultants office yourself to make an appointment. You may need to arrange that through your insurance and/or your primary/family doctor. If you are unable to see the professional housing consultant in 1 to 2 days, you must return to our emergency room (or any other ER of your choice) for re-assessment and re- evaluation. Adequate fluid hydration. Although you have been discharged from the Emergency Department, this does not mean that you have a "clean bill of health". No definitive diagnosis for your symptoms has been made today. It is possible that you are in the process of developing a serious illness. This is why you must return to the ED without fail if any new or worsening symptoms develop. Discharged With: Self EMERSON EJAN MD May 15, 2025 09:10
[2025-05-15 10:42] VITALS: BP 146/91; PULSE 76; RESP 19; O2SAT 95
== END 2025-05-15 10:42 | disposition home or self-care (01) ==
LOC: ER 21:57 → EDBD 21:57 → ER 05-15 10:42
DX: G40.909 Epilepsy, unspecified, not intractable, without status epilepticus (principal); I12.9 Hypertensive chronic kidney disease with stage 1 through stage 4 chronic kidney disease, or unspecified chronic kidney disease; N18.9 Chronic kidney disease, unspecified; I48.91 Unspecified atrial fibrillation; Z88.5 Allergy status to narcotic agent; Z88.6 Allergy status to analgesic agent
CPT/HCPCS: 36415; 71045; 80053; 83605; 83735; 84484; 85025; 93005; 96365; 96375; 96376; 99291; A4315; J1953; J2060; J7030

== ENCOUNTER 2025-05-15 21:50 | Emergency (ER) | payer OTHER ==
[~2025-05-15] VITALS: Ht 177.8 cm; Wt 136.0 kg
[2025-05-15] MEDS ORDERED: levETIRAcetam 1000 mg/100ml 100 ML IV ONE (22:00)
[2025-05-15 22:17] LABS: Nucleated Red Blood Cells % 0.1 %
[2025-05-15 22:19] LABS: Hematocrit 40.4 % (41.0-53.0); Hemoglobin 13.1 g/dL (13.5-17.5); Mean Corpuscular Hemoglobin 24.8 pg (28.0-32.0); Mean Corpuscular Volume 76.4 fL (80.0-100.0)
[2025-05-15 22:32] LABS: Albumin 4.5 g/dL (3.2-4.8); Alkaline Phosphatase 63 U/L (46-116); Anion Gap 13 (5-15); BUN/Creatinine Ratio 9.9 (10.0-20.0); Blood Urea Nitrogen 16 mg/dL (9-23); Calcium 9.5 mg/dL (8.7-10.4); Carbon Dioxide 23 mmol/L (20-31); Magnesium 2.0 mg/dL (1.6-2.6); Potassium 4.0 mmol/L (3.5-5.1); Sodium 143 mmol/L (136-145); Total Protein 8.2 g/dL (5.7-8.2)
[2025-05-15 22:33] LABS: Bilirubin, Total 0.5 mg/dL (0.2-1.0)
--- NOTE | 2025-05-15 22:35 | ED.PDOC ---
Altered Mental Status HPI Comments HPI: 50-year-old male who came to ER via EMS for altered level of consciousness. Per EMS patient picked up at home, where father called 911 patient was acting confused and lethargic. Patient was seen here yesterday for a seizure episode. Discharged this morning. Patient has no more episodes of seizure ever since he left the hospital. Persistence of lethargy, weakness, confusion prompted father to call paramedics patient is supposed to be on Keppra. Initial Vitals BP: 153/103 HR: 101 RR: 18 O2: 98% Past Medical History: Seizures, Afib, HTN, CHF, CKD, morbid obesity Past Surgical History: Denies Social History: Denies ETOH, smoking, and drug use. Medication: Keppra, Lamictal, Vimpat HPI: Poor Historian. REVIEW OF SYSTEMS: CONSTITUTIONAL: Denies acute: fever, diaphoresis, chills, HEAD: Denies acute: headache, photophobia Eyes: Denies acute: Double vision, vision loss, eye pain, eye discharge. EARS: Denies acute: tinnitus, hearing loss, ear discharge, ear pain, THROAT: Denies acute: sore throat, swelling, difficulty swallowing , pain with swallowing, change in voice. NECK: Denies acute: neck pain, neck swelling, stiff neck. HEART: Denies acute : chest pain, palpitations, LUNGS: Denies acute: SOB, wheezing, cough, hemoptysis ABDOMEN: Denies acute: abdominal pain, Nausea, Vomiting, diarrhea, melena , hematemesis, hematochezia SKIN: Denies acute: rash, redness, lesions, itchiness. EXTREMITIES: Denies acute: calf pain, numbness, tingling, weakness, denies pain in extremity. Denies acute: Low back pain. Neuro: Denies acute: focal neurological deficit, motor or sensory focal neurological deficit, tremors, seizure like activity, dizziness, , loss of bowel or bladder function, cauda equina like symptoms. : Denies acute: dysuria, hematuria, flank pain, increase in urinary frequency. PSYCH: Denies acute: hallucination, suicidal ideation, homicidal ideation. PHYSICAL EXAM: General: ---no-----acute distress, awake and alert. Slow to respond but eyes are open. Head: normocephalic, atraumatic. Neck: supple, trachea is midline, no swelling. Throat: Normal phonation. Eyes:, no erythema, no purulent discharge, no proptosis, no icterus. Heart: regular rate, regular rhythm, no significant murmur appreciated. Lungs: no apparent respiratory distress, No wheezing, no rhonchi, no crackles. No stridors Clear to auscultation bilaterally. Abdomen: non tender to palpation, non distended, soft, no guarding, no rebound, + bowel sounds. Morbidly obese Neuro: Awake, Alert, oriented to name, Skin: no petechia, no purpura, no cyanosis, non-pale, not jaundice. Lower extremities: --trace bilateral - Pitting edema no deformity, no focal swelling, no calf TTP. Makes eye contact. moves all four extremities. Face: no apparent facial droop. Able to sit up in bed. No nuchal rigidity, Kernig's sign, Brudzinski's sign, no meningeal signs. ED COURSE: As 1:00 a.m. attempted to call patient's father, Stoney Pruett , . However father is not answering the phone. Left voicemail. Home address: [address] [place] [address], [id number] [address] Dominguez making his rounds, ordered Fos Phenytoin and 2mg of Ativan As of 2:20 a.m., seizure finally ceased after 2 mg of Ativan DISCLAIMER: This medical document was created using an electronic medical record system with voice recognition software and computerized dictation system. Although this document has been carefully reviewed, there might still be some phonetic and typographical errors. Occasional wrong-word or "sound-alike" substitutions may have occurred due to the inherent limitations of voice recognition software. These areas are purely typographical due to imperfections of the software programs and do not reflect any compromise in the patient's medical care. Please read the chart carefully and recognize, using context, where these substitutions have occurred. Chief Complaint: ALOC Time Seen by MD: 22:34 Primary Care Provider: UNKNOWN Reviewed Notes: Nurses Notes, Allergies Allergies: Coded Allergies: Codeine (Unverified Allergy, Unknown, 07/21/24) Ibuprofen (Unverified Allergy, Unknown, 07/21/24) Home Meds Reported Medications Lacosamide (Vimpat) 50 Mg Tab, 50 MG PO BID for 30 Days, #60 TAB 1 Refill 08/29/24 Information Source: Emergency Med Personnel Mode of Arrival: EMS Past Medical History PAST MEDICAL HISTORY: AFIB, CKF, HTN, Seizures Surgical History: Pt Confused Family History Family History: Pt Confused Social History Smoker: Pt Confused Alcohol: Pt Confused Drugs: Pt Confused Lives In: Home Was a procedure done? Was a procedure done?: No Differential Diagnosis (ALOC) Differential Diagnosis: Hypoglycemia, Encephalopathy, Seizure, CVA, Other (SEIZUREDDX include not limited to CVA, cerebellar ischemia/infarct, carotid stenosis, vertebral/carotid artery dissection,, vertebrobasillary insufficiency, Intracranial mass/infection/bleed, encephalopathy, elctrolyte abnormality, thyroid disease, multiple sclerosis, hypoglycemia, drug toxicity, cardiac arrhythmia, sub-theraputic anti-convulsion medications, known seizure disorder, pseudo-seizure.) X-Ray, Labs, Meds, VS Vital Signs Date Time Temp Pulse Resp B/P (MAP) Pulse Ox O2 Delivery O2 Flow Rate FiO2 05/16/25 02:25 104 164/88 05/16/25 02:19 101 05/16/25 02:00 104 22 164/88 (113) 99 05/16/25 00:32 90 16 152/84 (106) 97 05/15/25 23:12 96 17 162/94 (116) 97 05/15/25 22:39 Room Air* 0 21 05/15/25 22:39 97.9 103 14 154/104 (121) 96 97.9 05/15/25 21:58 99.0 101 18 153/105 98 99.0 Lab Test 05/16/25 01:09 05/15/25 23:02 05/15/25 22:00 Range/Units Ammonia 22 11-32 umol/L Troponin I High Sensitivity 7 13 </=54 ng/L White Blood Count 10.4 4.4-10.8 10^3/uL Red Blood Count 5.30 4.5-5.90 10^6/uL Hemoglobin 13.1 L 13.5-17.5 g/dL Hematocrit 40.4 L 41.0-53.0 % Mean Corpuscular Volume 76.4 L 80.0-100.0 fL Mean Corpuscular Hemoglobin 24.8 L 28.0-32.0 pg Mean Corpuscular Hemoglobin Concent 32.5 32.0-36.0 g/dL Red Cell Distribution Width 18.6 H 11.8-14.3 % Platelet Count 230 140-450 10^3/uL Mean Platelet Volume 8.0 6.9-10.8 fL Neutrophils (%) (Auto) 79.9 37.0-80.0 % Lymphocytes (%) (Auto) 12.3 10.0-50.0 % Monocytes (%) (Auto) 6.7 0.0-12.0 % Eosinophils (%) (Auto) 0.3 0.0-7.0 % Basophils (%) (Auto) 0.8 0.0-2.0 % Neutrophils # (Auto) 8.3 1.6-8.6 10 ^3/uL Lymphocytes # (Auto) 1.3 0.4-5.4 10 ^3/uL Monocytes # (Auto) 0.7 0-1.3 10 ^3/uL Eosinophils # (Auto) 0 0-0.8 10 ^3/uL Basophils # (Auto) 0.1 0-0.2 10 ^3/uL Nucleated Red Blood Cells 0.1 % Prothrombin Time 17.7 H 9.3-11.8 sec Prothrombin Time INR 1.77 H 0.9-1.15 Sodium Level 143 136-145 mmol/L Potassium Level 4.0 3.5-5.1 mmol/L Chloride Level 107 98-107 mmol/L Carbon Dioxide Level 23 20-31 mmol/L Anion Gap 13 5-15 Blood Urea Nitrogen 16 9-23 mg/dL Creatinine 1.61 H 0.700-1.30 mg/dL Glomerular Filtration Rate Calc 51 >90 mL/min BUN/Creatinine Ratio 9.9 L 10.0-20.0 Serum Glucose 109 H 74-106 mg/dL Lactic Acid Level 1.2 0.4-2.0 mmol/L Calcium Level 9.5 8.7-10.4 mg/dL Magnesium Level 2.0 1.6-2.6 mg/dL Total Bilirubin 0.5 0.2-1.0 mg/dL Aspartate Amino Transferase (AST) 39 13-40 U/L Alanine Aminotransferase (ALT) 51 H 7-40 U/L Alkaline Phosphatase 63 46-116 U/L Total Protein 8.2 5.7-8.2 g/dL Albumin 4.5 3.2-4.8 g/dL Thyroid Stimulating Hormone (TSH) 1.61 0.55-4.78 uIU/mL Free Thyroxine (T4) Calculated 1.15 0.89-1.76 ng/dL Total Triiodothyronine (TT3) 1.38 0.60-1.81 ng/mL Current Medications Medications (Trade) Dose Ordered Sig/Daly Route Start Time Stop Time Status Last Admin Sodium Chloride 1,000 ml @ 1,000 mls/hr Q1H ONCE IV 05/15/25 22:30 05/15/25 23:29 DC 05/15/25 23:40 Labetalol HCl (Labetalol HCl) 10 mg ONCE ONCE IV 05/16/25 01:00 05/16/25 01:01 DC 05/16/25 02:25 Levetiracetam 100 ml @ 400 mls/hr ONCE ONCE IV 05/16/25 01:15 05/16/25 01:29 DC 05/16/25 01:15 Lorazepam (Ativan Inj) 2 mg ONCE ONCE IV 05/16/25 01:15 05/16/25 01:55 DC 05/16/25 01:15 Lorazepam (Ativan Inj) 2 mg ONCE ONCE IV 05/16/25 01:39 05/16/25 01:55 DC 05/16/25 01:39 Lorazepam (Ativan Inj) 2 mg ONCE ONCE IV 05/16/25 01:50 05/16/25 01:55 DC 05/16/25 01:50 Midazolam HCl (Versed Injection) 2 mg ONCE ONCE IV 05/16/25 02:00 05/16/25 02:01 DC 05/16/25 02:00 Phenytoin Sodium 2000 mg/Sodium Chloride 290 ml @ 290 mls/hr ONCE ONCE IV 05/16/25 02:15 05/16/25 03:14 DC 05/16/25 03:11 Sodium Chloride 1,000 ml @ 75 mls/hr [id number] ONCE IV 05/16/25 02:15 05/16/25 15:34 05/16/25 02:15 Time of 1ST Reevaluation: 22:30 Reevaluation 1ST: Unchanged Time of 2ND Reevaluation: 00:45 (The case was discussed with the admitting team (HPI, physical exam, labs and diagnostic tests that were available at the time of disposition, ED course, treatment plan) on the phone. They agreed to come and evaluate the patient --- Swathi. Please see their consultation notes and final disposition) Time of 3RD Reevaluation: 01:11 (Patient currently having seizures given 2 mg Ativan 1 g of Keppra as ordered) Patient Education/Counseling: Other (Altered and confused and lethargic) Family Education/Counseling: No Family Present Comments Patient was sent to the ED per family's request for lethargy and altered mental status. Since the patient left the hospital in the morning, there has not been any reported seizure episodes. While waiting in the ED, patient had a witnessed seizure episode was given a total of 6 mg Ativan in intervals and then later Versed 2 mg IV. The patient was placed on supplemental oxygen. Vital signs remained stable and patient seizure has resolved. The medicine team came and evaluated the patient at bedside and order fosphenytoin. Please see their consultation and recommendations. I ordered a neurology consult dejan allen but they were unable to evaluate the patient's since he was postictal. We attempted to reach the father on his phone number and left a voicemail but he has not called us back. Chest x-ray and CT scan of the head were obtained. Patient was given 1 g of Keppra as well. SEPSIS Sepsis Screen Date sepsis recognized/suspect: May 15, 2025 Time Sepsis recognized/suspect: 2150 Recent Procedure: No On Antibiotic Therapy: No Respiratory Rate >20: No Heart Rate >90: Yes Temp<36 C (96.8 F) or >38.3 C: No SBP <90 or MAP <65 mmHG: No New Acute Mental Status Change: Yes Is the patient on CPAP, BIPAP,: No Physician Orders Seizure Precautions (05/15/25 ) Skilled Nursing Case Manager (05/15/25 ) Chest Portable (05/15/25 21:51) Head Without Contrast (05/15/25 21:51) Electrocardigram (05/15/25 21:51) Complete Blood Count (05/16/25 04:00) Comprehensive Metabolic Panel (05/16/25 04:00) Ondansetron Hcl (Zofran) (05/16/25 02:15) Strict Aspiration Precautions (05/16/25 02:09) Seizure Precautions (05/16/25 ) * Neurology Consult (05/16/25 02:09) Enoxaparin Sodium (Lovenox) (05/16/25 10:00) Npo (Nothing By Mouth) Diet (05/16/25 Breakfast) Labetalol Hcl (Labetalol Hcl) (05/16/25 02:15) Sodium Chloride 0.9% (05/16/25 02:15) Levetiracetam 1500 Mg/100ml (Levetiracet (05/16/25 10:00) (Nf) Lacosamide (05/16/25 10:00) Midazolam Injection (Versed Injection) (05/16/25 02:30) Vital Signs Date Time Temp Pulse Resp B/P (MAP) Pulse Ox O2 Delivery O2 Flow Rate FiO2 05/16/25 02:25 104 164/88 05/16/25 02:19 101 05/16/25 02:00 104 22 164/88 (113) 99 05/16/25 00:32 90 16 152/84 (106) 97 05/15/25 23:12 96 17 162/94 (116) 97 05/15/25 22:39 Room Air* 0 21 05/15/25 22:39 97.9 103 14 154/104 (121) 96 97.9 05/15/25 21:58 99.0 101 18 153/105 98 99.0 Laboratory Tests Test 05/15/25 22:00 Lactic Acid Level 1.2 mmol/L (0.4-2.0) White Blood Count 10.4 10^3/uL (4.4-10.8) Medications Medications Dose Ordered Sig/Daly Route Start Time Stop Time Status Last Admin Dose Admin Labetalol HCl 10 mg ONCE ONCE IV 05/16/25 01:00 05/16/25 01:01 DC 05/16/25 02:25 Levetiracetam 100 ml @ 400 mls/hr ONCE ONCE IV 05/16/25 01:15 05/16/25 01:29 DC 05/16/25 01:15 Lorazepam 2 mg ONCE ONCE IV 05/16/25 01:15 05/16/25 01:55 DC 05/16/25 01:15 Lorazepam 2 mg ONCE ONCE IV 05/16/25 01:39 05/16/25 01:55 DC 05/16/25 01:39 Lorazepam 2 mg ONCE ONCE IV 05/16/25 01:50 05/16/25 01:55 DC 05/16/25 01:50 Midazolam HCl 2 mg ONCE ONCE IV 05/16/25 02:00 05/16/25 02:01 DC 05/16/25 02:00 Phenytoin Sodium 2000 mg/Sodium Chloride 290 ml @ 290 mls/hr ONCE ONCE IV 05/16/25 02:15 05/16/25 03:14 DC 05/16/25 03:11 Sodium Chloride 1,000 ml @ 75 mls/hr [id number] ONCE IV 05/16/25 02:15 05/16/25 15:34 05/16/25 02:15 Sodium Chloride 1,000 ml @ 1,000 mls/hr Q1H ONCE IV 05/15/25 22:30 05/15/25 23:29 DC 05/15/25 23:40 Departure 1 Departure Time of Disposition: 22:51 Impression: Primary Impression: Metabolic encephalopathy Additional Impression: Recurrent seizures Disposition: ADMITTED INPATIENT Admit to: [facility] Condition: Guarded Discharged With: Self Critical Care Note Critical Care Time?: Yes (90 min-critical care time only) Heart Score Heart Score: Heart Score Response (Comments) Value History N/A 0 EKG N/A 0 Age N/A 0 Risk Factors N/A 0 Troponin N/A 0 Total 0 I personally scribed for ADÁN BAUMANN DO ([email or web address]) on 05/15/25 at 22:35. Electronically submitted by Jimi Whitehead ([facility]). I personally scribed for ADÁN BAUMANN DO ([email or web address]) on 05/15/25 at 22:36. Electronically submitted by Jimi Whitehead ([facility]). I personally scribed for ADÁN BAUMANN DO ([email or web address]) on 05/16/25 at 01:03. Electronically submitted by Jimi Whitehead ([facility]). I personally scribed for ADÁN BAUMANN DO ([email or web address]) on 05/16/25 at 01:13. Electronically submitted by Jimi Whitehead ([facility]). I personally scribed for ADÁN BAUMANN DO ([facility]) on 05/16/25 at 01:14. Electronically submitted by Jimi Whitehead ([facility]). I personally scribed for ADÁN BAUMANN DO ([facility]) on 05/16/25 at 02:06. Electronically submitted by Jimi Whitehead ([facility]). I personally scribed for ADÁN BAUMANN DO ([facility]) on 05/16/25 at 02:23. Electronically submitted by Jimi Whitehead ([facility]). ADÁN BAUMANN DO May 15, 2025 22:35
[2025-05-15 22:39] LABS: Alanine Aminotransferase 51 U/L (7-40); Chloride 107 mmol/L (98-107); Glucose 109 mg/dL (74-106)
[2025-05-15] MEDS: SODIUM CHLORIDE 0.9% 1,000 ML IV ONE (23:40)
--- NOTE | 2025-05-15 23:41 | DVH ---
CHEST RADIOGRAPH Indication: sz Technique: 1 view Comparison: XY CHEST PORTABLE on DOS: 05/15/25, XY CHEST PORTABLE on DOS: 02/10/25, XY CHEST PORTABLE on DOS: 08/28/24, XY CHEST XRAY 1 VIEW on DOS: 07/21/24, XY CHEST PORTABLE on DOS: 06/13/23 FINDINGS: Lines and Tubes: None. Lungs/Pleura: Persistent low lung volumes. No focal consolidation, pleural effusion or pneumothorax. Cardiomediastinum: Unremarkable. Other: No acute osseous abnormality. IMPRESSION: 1. No acute abnormality or change from the previous day.
--- NOTE | 2025-05-15 23:48 | DVH ---
EXAM: CT HEAD WITHOUT CONTRAST INDICATION: sz TECHNIQUE: CT of the head without intravenous contrast. Radiation Dose : 1. Head: CT Dose: CTDI volume is 66.74 mGy. Dose-length product is 1314.92 mGy*cm The dose indicators for CT are the volume Computed Tomography (CT) Dose Index (CTDIvol) and the Dose Length Product (DLP), and are measured in units of mGy and mGy-cm, respectively. These indicators are not patient dose, but values generated from the CT scanner acquisition factors. The report includes radiation exposure data for exposures received during this examination. COMPARISON: CT HEAD WITHOUT CONTRAST on DOS: 03/29/25, CT HEAD WITHOUT CONTRAST on DOS: 02/10/25, CT HEA D WITHOUT CONTRAST on DOS: 10/19/24, MRI BRAIN HEAD WO CONTRAST on DOS: 09/16/24, CT HEAD WITHOUT CONTR AST on DOS: 09/15/24 FINDINGS: There is no evidence of acute intracranial hemorrhage, extra-axial collection, mass effect, midline s hift, herniation or hydrocephalus. The ventricles, sulci and cisterns are age appropriate. The boston-white differentiation is intact. Patchy periventricular and subcortical white matter hypoattenuation is nonspecific but may be related to small vessel ischemic disease. The visualized paranasal sinuses and mastoid air cells are clear. The surrounding soft tissues and osseous structures are unremarkable. IMPRESSION: 1. No acute intracranial abnormality. Radiation optimization: All CT scans at this facility use at least one of these dose optimization maggie hniques: automated exposure control mA and/or kV adjustment per patient size (includes targeted exam s where dose is matched to clinical indication) or iterative reconstruction.
[2025-05-16] MEDS: LABETALOL HCL 20 MG/4 ML VL IV ONE (01:00)
[2025-05-16] MEDS: LORazepam 2MG/ML-1ML VIAL IV ONE ×3 (01:15→01:50)
[2025-05-16] MEDS: levETIRAcetam 1000 mg/100ml 100 ML IV ONE (01:15)
[2025-05-16 01:20] LABS: Free T4 (Free Thyroxine) 1.15 ng/dL (0.89-1.76)
[2025-05-16 01:24] LABS: INR 1.77 (0.9-1.15); Prothrombin Time 17.7 sec (9.3-11.8)
[2025-05-16] MEDS: LORazepam 2MG/ML-1ML VIAL ONE ×2 (01:32→02:00)
[2025-05-16] MEDS ORDERED: LORazepam 2MG/ML-1ML VIAL IV ONE (01:45)
[2025-05-16] MEDS: MIDAZOLAM HCL 2MG/2ML 2ml VIAL (1mg/ml) IV ONE (02:00)
[2025-05-16] MEDS: MIDAZOLAM HCL 2MG/2ML 2ml VIAL (1mg/ml) ONE (02:03)
[2025-05-16] MEDS: SODIUM CHLORIDE 0.9% 1,000 ML IV ONE ×2 (02:15→10:42)
[2025-05-16] MEDS ORDERED: ONDANSETRON HCL 4 MG/2 ML VIAL IV PRN (02:15)
[2025-05-16] MEDS ORDERED: LABETALOL HCL 20 MG/4 ML VL IV PRN (02:15)
[2025-05-16] MEDS ORDERED: NITROGLYCERIN 0.4 MG SL TAB SL PRN (02:30)
[2025-05-16] MEDS ORDERED: MIDAZOLAM HCL 2MG/2ML 2ml VIAL (1mg/ml) IV PRN (02:30)
[2025-05-16] MEDS: PHENYTOIN SODIUM 50 MG/ML 2ML VIAL IV ONE ×3 (02:43→03:03)
[2025-05-16] MEDS: PHENYTOIN SODIUM 50 MG/ML 5ML INJ VIAL IV ONE (02:43)
[2025-05-16] MEDS: SODIUM CHL 0.9% IV ONE (03:11)
[2025-05-16] MEDS: PHENYTOIN DILANTIN IV ONE (03:11)
--- NOTE | 2025-05-16 04:41 | DVHHP ---
ADMIT DATE: 05/16/2025 CHIEF COMPLAINT: Coming in due to altered level of consciousness. HISTORY OF PRESENT ILLNESS: This is a 50-year-old male with significant past medical history for seizures, atrial fib, hypertension, congestive heart failure, chronic kidney disease, and morbid obesity who presents to Emergency Room with altered level of consciousness. The patient apparently presented here prior on 05/14 with breakthrough seizures. He was treated overnight and was discharged in the morning of 05/15. The patient went home. Apparently, father saw the patient not acting right and not responding to questions as quickly as he does and seemed to be slightly somnolent and slow to respond and EMS was called and the patient was brought in. Apparently, the patient on presentation to the Emergency Room again seemed to be slow to respond, but seemed to be alert to self, time, and to place per documentation. The patient, however, did go into episodes of tonic-clonic seizures, requiring the patient to receive 6 doses of Versed, 1 dose of midazolam in combination to 1000 mg of Keppra load. It is unknown if the patient took his medications today, but there is no documentation of ever previously not being medication compliant. The patient has had here apparently other visits to this hospital in the past. The patient during my evaluation was having tonic-clonic seizures and was receiving anti-seizure medications and I was unable to get any form of history. Most of the medical history is gathered from the medical chart system. PAST MEDICAL HISTORY: Seizures, AFib, hypertension, CHF, CKD, morbid obesity. PAST SURGICAL HISTORY: Apparently, the patient denies any prior surgeries. SOCIAL HISTORY: He denies any alcohol, tobacco, or illicit drug use. MEDICATIONS AT HOME: Include Keppra 750 two tabs twice a day, lacosamide 100 mg p.o. b.i.d., and lamotrigine extended-release 250 mg p.o. daily, tizanidine 4 mg p.r.n., enalapril 20 mg p.o. daily, hydrocodone/acetaminophen 10/325 p.r.n. three times a day, and warfarin 7.5 mg tablets, I believe the patient takes once a day as well as Multaq 400 mg twice a day. MEDICATION ALLERGIES: CODEINE AND IBUPROFEN. REVIEW OF SYSTEMS: Unable to obtain as the patient during my assessment was having tonic-clonic seizures. PHYSICAL EXAMINATION: VITAL SIGNS: Temperature 99, pulse rate 101, respiratory rate of 18, blood pressure 153/105, pulse ox about 98% on room air. GENERAL: Initially alert and oriented to self, time, and place, not in acute distress, but slow to respond patient. HEENT: Normocephalic, atraumatic. Extraocular muscles were intact. Pupils were equally round and reactive to light and accommodation. Mucous membranes were dry. CARDIOVASCULAR: S1, S2 positive, tachycardic rhythm. No rubs, gallops, or murmurs. LUNGS: Seem to be clear to auscultation bilaterally. No wheezing, rhonchi or rales. ABDOMEN: Obese, soft, nontender, nondistended. Positive bowel sounds. No guarding, no rebound. EXTREMITIES: Lower extremities, no lower extremity edema, clubbing or cyanosis. Moving all 4 extremities. NEUROLOGIC: Cranial nerve testing was not completed. LABORATORY WORKUP: Shows white count 10.4, H and H of 13.1 and 40.4, platelet count of 230,000, no left shift. INR of 1.77. Sodium of 143, potassium of 4.0, chloride of 107, carbon dioxide of 23, anion gap of 13. BUN of 16, creatinine of 1.61, glucose of 109, calcium of 9.5, lactic acid of 1.2, magnesium of 2.0, AST of 39, ALT of 51, alkaline phos of 63, ammonia of 22. Troponins of 13 and 7. TSH of 1.61, free T4 of 1.15, and total T3 of 1.38. Urinalysis was 2+ blood, negative nitrites, negative leukocyte esterase, 10 rbc's, 1 wbc. Toxicology screening was positive for benzodiazepines and levetiracetam of 4.7 that was low. IMAGING: Chest x-ray was completed, shows no acute abnormality or change from previous stay. CT head was also completed. It shows no acute intracranial abnormality. DIAGNOSIS: Breakthrough seizures. SECONDARY DIAGNOSES: * Essential hypertension. * Paroxysmal atrial fibrillation. PLAN: The patient will be admitted to the medical step-down unit for continuous cardiopulmonary monitoring under observation status. Consultation with Dr. Miguel, Neurology has been requested. The patient will be placed on strict n.p.o. at this point. Aspiration precautions and seizure precautions have been ordered. The patient has been again loaded with Keppra 1000 mg in addition to receiving 6 mg of Versed and 2 mg of midazolam throughout his ER course. The patient will be continued on Keppra 1500 IV b.i.d. as well as lacosamide 100 mg IV b.i.d. in addition to midazolam 2 mg IV p.r.n. q. 1 hour for breakthrough seizures. The patient will also be ordered some IV hydration with normal saline at 75 mL an hour x 1 liter. The patient to have labetalol 10 mg IV p.r.n. q. 4 for systolic blood pressures greater than 150 and diastolic blood pressures greater than 100. Zofran 4 mg IV p.r.n. q. 4 for nausea and vomiting. In addition to these medications, the patient's Coumadin will be converted to Lovenox 1 mg/kg using his ideal body weight with an adjustment factor with Lovenox 100 mg subcutaneously q. 12 hours. The patient otherwise is a full code. Further recommendations will depend on patient's hospital progression. Jorge Luis Islas MD LM/HEM TID: [id number] RECEIPT: [id number]
[2025-05-16 05:38] LABS: Urine Protein, UAD 2+ (Negative)
[2025-05-16 05:54] LABS: Amphetamine Screen, Urine Neg (NEGATIVE); Barbiturate Scree,Urine Neg (NEGATIVE); Benzodiazephine Screen, Urine Pos (NEGATIVE); Cannabinoid Screen, Urine Neg (NEGATIVE); Cocaine Screen, Urine Neg (NEGATIVE); Opiate Scree,Urine Neg (NEGATIVE); Phencyclidine Screen, Urine Neg (NEGATIVE)
[2025-05-16 06:29] LABS: Hemoglobin 12.1 g/dL (13.5-17.5); Nucleated Red Blood Cells % 0.1 %
[2025-05-16 06:32] LABS: Hematocrit 37.4 % (41.0-53.0); Mean Corpuscular Hemoglobin 25.0 pg (28.0-32.0); Mean Corpuscular Volume 76.9 fL (80.0-100.0)
[2025-05-16 06:41] LABS: Albumin 3.8 g/dL (3.2-4.8); Alkaline Phosphatase 56 U/L (46-116); Anion Gap 13 (5-15); BUN/Creatinine Ratio 12.8 (10.0-20.0); Blood Urea Nitrogen 20 mg/dL (9-23); Calcium 8.8 mg/dL (8.7-10.4); Carbon Dioxide 23 mmol/L (20-31); Potassium 4.0 mmol/L (3.5-5.1); Sodium 145 mmol/L (136-145); Total Protein 6.7 g/dL (5.7-8.2)
[2025-05-16 06:42] LABS: Bilirubin, Total 0.5 mg/dL (0.2-1.0)
[2025-05-16 06:45] LABS: Alanine Aminotransferase 47 U/L (7-40); Chloride 109 mmol/L (98-107); Glucose 119 mg/dL (74-106)
[2025-05-16 07:30] VITALS: PULSE 74; RESP 17; TEMP 98.1; O2SAT 100
[2025-05-16] MEDS: LACOSAMIDE 50 MG TAB PO SCH (10:00)
[2025-05-16] MEDS: ENOXAPARIN SOD 100 MG/1 ML SYRINGE SC SCH (10:04)
[2025-05-16] MEDS: levETIRAcetam 1500 mg/100ml 100 ML IV SCH (10:05)
[2025-05-16 11:30] VITALS: PULSE 76; RESP 18; O2SAT 100
--- NOTE | 2025-05-16 13:27 | DVH ---
CLINICAL HISTORY: ALOC TECHNIQUE: Routine multiplanar imaging of the brain was performed without gadolinium contrast. COMPARISON: CT HEAD WITHOUT CONTRAST on DOS: 05/15/25, CT HEAD WITHOUT CONTRAST on DOS: 03/29/25, CT HE AD WITHOUT CONTRAST on DOS: 02/10/25, CT HEAD WITHOUT CONTRAST on DOS: 10/19/24, MRI BRAIN HEAD WO CONTR AST on DOS: 09/16/24 FINDINGS: Evaluation is limited due to image degradation secondary to patient motion. There is no abnormal restricted diffusion to suggest acute infarction. There is mild brain volume loss. There are no significant chronic small vessel ischemic foci. There is no evidence for acute ischemic changes, mass, mass effect, or extra-axial fluid collection. There is no hydrocephalus or midline shift. The cerebral sulci and subarachnoid cisterns are not effa sherrie. The imaged paranasal sinuses are clear. The globes are intact. The midline structures, including the corpus callosum, are unremarkable. The intracranial flow voids are maintained. IMPRESSION: Limited exam with no acute intracranial abnormality seen. No evidence for acute infarct.
--- NOTE | 2025-05-16 14:49 | DVHEEG2 ---
Neurology EEG Procedural Note Procedural Note Prelim: Diffuse slowing c/w nospecific encephalopathy; No active electrographic seizures CHERI BOATENG MD May 16, 2025 14:49
[2025-05-16 15:00] VITALS: BP 137/75; PULSE 82; RESP 18; O2SAT 96
--- NOTE | 2025-05-16 16:47 | DVHDS2 ---
New Physician D'charge PN Admitting Diagnosis Admitting Diagnosis seizure Discharge Diagnosis seizure Operations or Procedures none Reason(s) For Hospitalization Surgery Hospital Course 50 M with a hx of seizures on antiepileptic medication at home comes to ER for confusion. He apparently had a witnessed seizure in the ER and was given versed and ativan and loaded with keppra. His cbc and chem panel were nml. Head Ct showed no acute findings and CXR was clear. He had a brain MRI done which was negative for acute findings. EEG was done and showed no active seizure activity. The patient was initially post ictal and was given sedative meds. He eventually woke up and is now A/O x4. He was given IV keppra along with his home regimen of PO vimpat. Patient has a hx of noncompliance with seizure medications and has had multiple visits to the ER for breakthrough seizures along with multiple MRI scans and EEGs. He is back to his baseline now. He will be discharged home to continue his home seizure meds. Counseled on compliance with his medication. He will be discharged home with outpt neurology follow up. Treatment Plan Discharge Condition of Discharge Good Disposition Home Discharge Instructions Diet: Cardiac 2g Na,low cholest Activity: No Restrictions, As Tolerated Medications: see med sheet Follow Up Care Follow Up/Referral: pcp Discharge Statement: "Patient was advised to return to the ER or call 911 if any headaches, di zziness, shortness of breath, chest pain, abdominal pain, bleeding, fevers, or worsening of medical condition. Patient was counseled about treatment plan, medications, possible side effects, patientverbalized understanding. All questions were answered to the best of my ability. This discharge took greater then 30 minutes in planning, reviewing documentation, counseling the patient, and discussing with other team members." GAURAV HANCOCK MD May 16, 2025 16:47
== END 2025-05-16 02:32 | disposition home or self-care (01) ==
LOC: EDBD 21:50 → ER 21:50 → UNDOADMOB 05-16 02:26 → OVERFLOW 05-16 02:26
DX: G93.41 Metabolic encephalopathy (principal); R56.9 Unspecified convulsions; I13.0 Hypertensive heart and chronic kidney disease with heart failure and stage 1 through stage 4 chronic kidney disease, or unspecified chronic kidney disease; N18.9 Chronic kidney disease, unspecified; I50.9 Heart failure, unspecified; I48.0 Paroxysmal atrial fibrillation; E66.01 Morbid (severe) obesity due to excess calories; Z79.899 Other long term (current) drug therapy; Z79.891 Long term (current) use of opiate analgesic; Z88.5 Allergy status to narcotic agent; Z88.6 Allergy status to analgesic agent; Z68.41 Body mass index [BMI] 40.0-44.9, adult
CPT/HCPCS: 36415; 70450; 70551; 71045; 80053; 80307; 81001; 82140; 83605; 83735; 84439; 84443; 84480; 84484; 85025; 85610; 95819; 96361; 96365; 96372; 96375; 96376; 99291; 99292; J1165; J1650; J1953; J2060; J2250; J7030; J7050

== ENCOUNTER 2025-06-25 13:05 | Inpatient (IN) | payer OTHER ==
[~2025-06-25] VITALS: Ht 182.9 cm; Wt 159.0 kg
[2025-06-25 14:00] VITALS: PULSE 82; RESP 18; O2SAT 98
[2025-06-25] MEDS: levETIRAcetam 1000 mg/100ml 100 ML IV ONE (14:06)
--- NOTE | 2025-06-25 14:29 | ED.PDOC ---
HPI (NEURO) HPI Comments This is a 50 year old male ANITAA presenting to the ED with chief complaint of seizure. EMS reports patient was witnessed to have a seizure at home, hitting his face and causing some abrasions and mild bleeding, now controlled. Patient denies any headache, dizziness, N/V, chest pain, or further injury. Chief Complaint: Seizure Time Seen by MD: 14:28 Primary Care Provider: UNKNOWN Reviewed Notes: Nurses Notes, Stogie Packer Notes, Medications, Allergies Information Source: Patient, Emergency Med Personnel Mode of Arrival: EMS Severity: Moderate Timing: Hours Duration: Minutes Prehospital treatment: None Seizure Quality: Tonic-clonic Seizure Location: Generalized Onset: At rest Circumstances: Spontaneous History of: Seizure Disorder Past Medical History PAST MEDICAL HISTORY: AFIB, CKF, HTN, Seizures Surgical History: Denies all surgeries Family History Family History: Reviewed,noncontributory to illness Social History Smoker: Non-Smoker Alcohol: Denies ETOH Use Drugs: Denies Drug Use Lives In: Home Constitutional: denies: chills, diaphoresis, fatigue, fever, malaise, sweats, weakness, others EENTM: denies: blurred vision, double vision, ear bleeding, ear discharge, ear drainage, ear pain, ear ringing, eye pain, eye redness, hearing loss, mouth pain, mouth swelling, nasal discharge, nose bleeding, nose congestion, nose pain, photophobia, tearing, throat pain, throat swelling, voice changes, others Respiratory: denies: cough, hemoptysis, orthopnea, SOB at rest, shortness of breath, SOB with excertion, stridor, wheezing, others Cardiovascular: denies: chest pain, dizzy spells, diaphoresis, Dyspnea on exertion, edema, irregular heart beat, left arm pain, lightheadedness, palpitations, PND, syncope, others Gastrointestinal: denies: abdomen distended, abdominal pain, blood streaked bowels, constipated, diarrhea, dysphagia, difficulty swallowing, hematemesis, melena, nausea, poor appetite, poor fluid intake, rectal bleeding, rectal pain, vomiting, others Genitourinary: denies: burning, dysuria, flank pain, frequency, hematuria, incontinence, penile discharge, penile sore, pain, testicle pain, testicle swelling, urgency, others Neurological: reports: seizure; denies: dizziness, fainting, headache, left sided numbness, left sided weakness, numbness, paresthesia, pre-existing deficit, right sided numbness, right sided weakness, speech problems, tingling, tremors, weakness, others Musculoskeletal: denies: back pain, gout, joint pain, joint swelling, muscle pain, muscle stiffness, neck pain, others Integumetry: denies: bruises, change in color, change in hair/nails, dryness, laceration, lesions, lumps, rash, wounds, others Allergic/Immunocompromised: denies: Difficulty Healing, Frequent Infections, Hives, Itching, others Hematologic/Lymphatic: denies: anemia, blood clots, easy bleeding, easy bruising, swollen glands, others Endocrine: denies: excessive hunger, excessive sweating, excessive thirst, excessive urination, flushing, intolerance to cold, intolerance to heat, unexplained weight gain, unexplained weight loss, others Psychiatric: denies: anxiety, bipolar disorder, depression, hopeless, panic disorder, schizophrenia, sleepless, suicidal, others All Other Systems: Reviewed and Negative Physical Exam General Appearance: No Apparent Distress, Normal HEENT: Normal ENT Inspection, Pharynx Normal, TMs Normal Neck: Full Range of Motion, Non-Tender, Normal, Normal Inspection Respiratory: Chest Non-Tender, Lungs Clear, No Accessory Muscle Use, No Respiratory Distress, Normal Breath Sounds Cardiovascular: No Edema, No JVD, No Murmur, No Gallop, Normal Peripheral Pulses, Regular Rate/Rhythm Breast Exam: Deferred Gastrointestinal: No Organomegaly, Non Tender, No Pulsatile Mass, Normal Bowel Sounds, Soft Genitalia: Deferred Pelvic: Deferred Rectal: Deferred Extremities: No calf tenderness, Normal capillary refill, Normal inspection, Normal range of motion, Non-tender, No pedal edema Musculoskeletal : Apperance: Normal Neurologic: Alert, bowling alley manager II-XII nml as Tested, No Motor Deficits, Normal Affect, Normal Mood, No Sensory Deficits Cerebellar Function: Normal Reflexes: Normal Skin: Dry, Normal Color, Warm Lymphatic: No Adenopathy Was a procedure done? Was a procedure done?: No Differential Diagnosis (SZ) Seizure: Hyponatremia, Epilepsy-Break Through, Epilepsy-Status CVA: Hypoglycemia General Weakness: Dehydration Headache: N/A X-Ray, Labs, Meds, VS Vital Signs Date Time Temp Pulse Resp B/P (MAP) Pulse Ox O2 Delivery O2 Flow Rate FiO2 06/25/25 15:07 78 16 130/77 (94) 99 06/25/25 14:00 82 18 98 Room Air* 0 21 06/25/25 13:44 97.9 95 18 139/90 94 97.9 Current Medications Medications (Trade) Dose Ordered Sig/Daly Route Start Time Stop Time Status Last Admin Levetiracetam 100 ml @ 400 mls/hr ONCE ONCE IV 06/25/25 13:45 06/25/25 13:59 DC 06/25/25 14:06 Time of 1ST Reevaluation: 15:27 Reevaluation 1ST: Unchanged Patient Education/Counseling: Diagnosis, Treatment Family Education/Counseling: No Family Present Departure 1 Departure Time of Disposition: 15:18 (Patient returned to baseline. Patient is feeling better. We will discharge patient home with outpatient follow up) Impression: Primary Impression: Breakthrough seizure Disposition: 01 HOME / SELF CARE / HOMELESS Condition: Stable Additional Instructions: You had a breakthrough seizure today. It is important to take your seizure medication. You should stay well rested and well hydrated. You should follow up with your regular doctor within 1 week. If your symptoms worsen or you have any other concerns then please return to the emergency room. Discharged With: Self Critical Care Note Critical Care Time?: No Stability Stability form required: No Heart Score Heart Score: Heart Score Response (Comments) Value History N/A 0 EKG N/A 0 Age N/A 0 Risk Factors N/A 0 Troponin N/A 0 Total 0 I personally scribed for EMERSON JEAN MD ([email or web address]) on 06/25/25 at 14:29. Electronically submitted by Mario Sher ([email or web address]). EMERSON JEAN MD Jun 25, 2025 14:29
[2025-06-25] MEDS: MIDAZOLAM HCL 5 MG/ML-1ML VIAL ONE (15:46)
[2025-06-25] MEDS: MIDAZOLAM HCL 5 MG/ML-1ML VIAL IV ONE (15:48)
[2025-06-25 16:52] LABS: Hematocrit 37.0 % (41.0-53.0); Hemoglobin 11.9 g/dL (13.5-17.5); Mean Corpuscular Hemoglobin 24.2 pg (28.0-32.0); Mean Corpuscular Volume 75.3 fL (80.0-100.0); Nucleated Red Blood Cells % 0.1 %
--- NOTE | 2025-06-25 16:55 | DVH ---
CHEST RADIOGRAPH Indication: worsening seizures Technique: Single frontal view of the chest was obtained COMPARISON: XY CHEST PORTABLE on DOS: 05/15/25, XY CHEST PORTABLE on DOS: 05/15/25, XY CHEST PORTABLE on DOS: 02/10/25, XY CHEST PORTABLE on DOS: 08/28/24, XY CHEST XRAY 1 VIEW on DOS: 07/21/24 FINDINGS: Cardiac silhouette is mildly enlarged. Mild prominence of the pulmonary vasculature. No dense focal airspace disease. No significant pleural effusions or pneumothorax. Bones and soft tissues demonstrate no significant abnormality. IMPRESSION: Mild cardiomegaly with mild pulmonary vascular congestion.
[2025-06-25 16:59] LABS: Chloride 107 mmol/L (98-107); Potassium 4.9 mmol/L (3.5-5.1); Sodium 142 mmol/L (136-145)
[2025-06-25 17:00] LABS: Anion Gap 10 (5-15); Calcium 9.3 mg/dL (8.7-10.4); Carbon Dioxide 25 mmol/L (20-31)
[2025-06-25 17:05] LABS: BUN/Creatinine Ratio 12.2 (10.0-20.0); Blood Urea Nitrogen 18 mg/dL (9-23); Glucose 93 mg/dL (74-106)
[2025-06-25] MEDS: LACOSAMIDE 50 MG TAB PO SCH ×2 (17:11→22:15)
--- NOTE | 2025-06-25 17:31 | DVH ---
CT HEAD WITHOUT CONTRAST INDICATION: worsening seizures COMPARISON: MRI BRAIN HEAD WO CONTRAST on DOS: 05/16/25, CT HEAD WITHOUT CONTRAST on DOS: 05/15/25, CT HEAD WITHOUT CONTRAST on DOS: 03/29/25, CT HEAD WITHOUT CONTRAST on DOS: 02/10/25, CT HEAD WITHOUT CONTRAST on DOS: 10/19/24 TECHNIQUE: CT of the head without intravenous contrast. RADIATION DOSE: CTDIvol: 67.1 mGy, DLP: 1321.93 mGy*cm FINDINGS: There is no evidence of acute intracranial hemorrhage, extra-axial collection, mass effect, midline shift, herniation or hydrocephalus. The ventricles, sulci and cisterns are age appropriate. The boston-white differentiation is intact. The visualized paranasal sinuses and mastoid air cells are clear. The surrounding soft tissues and osseous structures are unremarkable. IMPRESSION: No evidence of acute intracranial hemorrhage, mass effect or hydrocephalus.
[2025-06-25] MEDS: MIDAZOLAM HCL 5 MG/ML-1ML VIAL IV PRN (18:35)
--- NOTE | 2025-06-25 18:41 | DVHHP2 ---
Admitting Diagnosis: Breakthrough seizure History of Present Illness HPI Patient presents after a generalized tonic clonic seizure at home. Patient has multiple visits for breakthrough seizures. Unable to obtain history from patient as still post-ictal. Home Meds Reported Medications Lacosamide (Vimpat) 50 Mg Tab, 50 MG PO BID for 30 Days, #60 TAB 1 Refill 08/29/24 Past Medical History Others Epilepsy Patient Family History: Patient reports no known family medical history. Review of Systems Comments Unable to obtain H&P Exam Vital Signs Vital Signs Date Time Temp Pulse Resp B/P (MAP) Pulse Ox O2 Delivery O2 Flow Rate FiO2 06/25/25 17:00 93 18 140/88 (105) 97 06/25/25 14:00 Room Air* 0 21 06/25/25 13:44 97.9 97.9 General Appeara: Obese Pulmonary/Respiratory: Normal inspection SEPSIS Sepsis Screen Date sepsis recognized/suspect: Jun 25, 2025 Time Sepsis recognized/suspect: 1400 Recent Procedure: No On Antibiotic Therapy: No Respiratory Rate >20: No Heart Rate >90: No Temp<36 C (96.8 F) or >38.3 C: No SBP <90 or MAP <65 mmHG: No New Acute Mental Status Change: No Is the patient on CPAP, BIPAP,: No Physician Orders Urinalysis (06/25/25 15:55) Chest Portable (06/25/25 15:55) Head Without Contrast (06/25/25 15:55) * Neurology Consult (06/25/25 15:55) Drug Screen (06/25/25 16:14) Lacosamide (Vimpat) (06/25/25 16:30) Midazolam Injection (Versed Injection) (06/25/25 17:30) Admit (06/25/25 18:36) Oxygen Per Hour (06/25/25 18:36) Complete Blood Count (06/26/25 04:00) Comprehensive Metabolic Panel (06/26/25 04:00) Npo (Nothing By Mouth) Diet (06/26/25 Breakfast) Nitroglycerin Sublingual (Ntrostat Subli (06/25/25 18:45) Morphine Sulfate Injection (06/25/25 18:45) Stat Ekg For Chest Pain (06/25/25 18:36) Notify Of Changes From Base (06/25/25 18:36) Glueline Worker For 24 Hours (06/25/25 18:36) Emergency Dysrhythmia Protocol (06/25/25 18:36) Rhythm Strips Once Every Shift (06/25/25 18:36) Oxygen By Nasal Cannula (06/25/25 18:36) Levetiracetam Ivpb Keppra (06/25/25 18:45) Vital Signs Date Time Temp Pulse Resp B/P (MAP) Pulse Ox O2 Delivery O2 Flow Rate FiO2 06/25/25 17:00 93 18 140/88 (105) 97 06/25/25 15:07 78 16 130/77 (94) 99 06/25/25 14:00 82 18 98 Room Air* 0 21 06/25/25 13:44 97.9 95 18 139/90 94 97.9 Laboratory Tests Test 06/25/25 16:42 White Blood Count 10.4 10^3/uL (4.4-10.8) Medications Medications Dose Ordered Sig/Daly Route Start Time Stop Time Status Last Admin Dose Admin Lacosamide 50 mg BID PO 06/25/25 16:30 06/25/25 17:11 50 MG Levetiracetam 100 ml @ 400 mls/hr ONCE ONCE IV 06/25/25 13:45 06/25/25 13:59 DC 06/25/25 14:06 400 MLS/HR Midazolam HCl 5 mg ONCE ONCE IV 06/25/25 16:00 06/25/25 16:01 DC 06/25/25 15:48 5 MG Midazolam HCl 5 mg ONCE PRN IV 06/25/25 17:30 06/25/25 18:35 5 MG Labs/Xrays Labs Test 06/25/25 16:42 Range/Units White Blood Count 10.4 4.4-10.8 10^3/uL Red Blood Count 4.92 4.5-5.90 10^6/uL Hemoglobin 11.9 L 13.5-17.5 g/dL Hematocrit 37.0 L 41.0-53.0 % Mean Corpuscular Volume 75.3 L 80.0-100.0 fL Mean Corpuscular Hemoglobin 24.2 L 28.0-32.0 pg Mean Corpuscular Hemoglobin Concent 32.2 32.0-36.0 g/dL Red Cell Distribution Width 19.5 H 11.8-14.3 % Platelet Count 198 140-450 10^3/uL Mean Platelet Volume 8.0 6.9-10.8 fL Neutrophils (%) (Auto) 78.4 37.0-80.0 % Lymphocytes (%) (Auto) 10.3 10.0-50.0 % Monocytes (%) (Auto) 8.3 0.0-12.0 % Eosinophils (%) (Auto) 2.2 0.0-7.0 % Basophils (%) (Auto) 0.8 0.0-2.0 % Neutrophils # (Auto) 8.1 1.6-8.6 10 ^3/uL Lymphocytes # (Auto) 1.1 0.4-5.4 10 ^3/uL Monocytes # (Auto) 0.9 0-1.3 10 ^3/uL Eosinophils # (Auto) 0.2 0-0.8 10 ^3/uL Basophils # (Auto) 0.1 0-0.2 10 ^3/uL Nucleated Red Blood Cells 0.1 % Sodium Level 142 136-145 mmol/L Potassium Level 4.9 3.5-5.1 mmol/L Chloride Level 107 98-107 mmol/L Carbon Dioxide Level 25 20-31 mmol/L Anion Gap 10 5-15 Blood Urea Nitrogen 18 9-23 mg/dL Creatinine 1.47 H 0.700-1.30 mg/dL Glomerular Filtration Rate Calc 57 >90 mL/min BUN/Creatinine Ratio 12.2 10.0-20.0 Serum Glucose 93 74-106 mg/dL Calcium Level 9.3 8.7-10.4 mg/dL Assessment/Plan Primary Diagnosis 1. Breakthrough seizure -Admit to telemetry -Keppra 1000 mg IV BID -Versed 5mg For breakthrough -NPO -Daily CBC and BMP -Full Code Plan discussed with: Other JANETTE LOBATO DO Jun 25, 2025 18:41
[2025-06-25] MEDS ORDERED: NITROGLYCERIN 0.4 MG SL TAB SL PRN (18:45)
[2025-06-25] MEDS ORDERED: MORPHINE SULFATE INJ 2 MG/ml SYRG IV PRN (18:45)
[2025-06-25] MEDS: levETIRAcetam 1000 mg/100ml 100 ML IV SCH (19:00)
--- NOTE | 2025-06-25 21:18 | DVHINCON2 ---
Date of service: Jun 25, [address] Ramirez Reason for Consultation Worsening seizures History of Present Illness He has more than one charts in [facility], (MR #:[id number], MR #:[id number], MR #: [id number]) Mr. Augustine is a left-handed gentleman with a history of obesity, atrial fibrillation, seizure disorder, JEANNINE on CPAP. He came to the hospital on 11/24/2024 with a chief complaint of seizure activity. At the time, he is alert and fully oriented, he provided the following history I saw him on 11/21/2016, 04/14/17, 07/16/18, 08/10/2018, 12/11/2018, 01/13/2019, 02/17/2019, 05/19/2020 (MR #:[id number]), 09/18/22, 09/16/2024, 11/25/2024, 03/31/2025 for seizure activity. There were atypical features in the seizure on 02/17/2019 Before she came to the hospital, she has a seizure at home and she heard her left eyebrow, with concussions year, I saw dried blood on the right face. In the emergency room, he had another seizure (RN note 06/25/25 1830), he has company amnesia for both seizures. He has seizure disorder since age of 13. He reports complete amnesia about his seizure, but he was told that he lost his consciousness, shaking all over the body, he has had tongue biting and urinary incontinence during the seizure. He has seizure about once monthly He also has another type of seizure, where he spaces out briefly. This can be a warning of the general shaking seizure, he only has this kind of seizure once a while He sees Dr. Ramirez, he is on Lamotrigine 250 mg b.i.d., Keppra 1500 mg b.i.d., Vimpat, 100 mg b.i.d. he also takes Coumadin 7.5 mg q.d. for AFib (Ext Med Hx, 06/25/25: Lamotrigine 250 mg b.i.d., Keppra 750 mg two tablets b.i.d., Vimpat 100 mg b.i.d.) CBC, 03/26/25: HGB: 12.1 06/25/2025: HGB: 11.9 BUN/CR 06/25/2025: 18/1.47 GFR 06/25/2025: [address] head, 09/17/2022: No intracranial hemorrhage. Recommend MRI if symptoms persist. CT head, 09/15/2024: 1. No acute intracranial hemorrhage 2. No CT findings of territorial ischemia. 3. No intracranial masses CTA head,03/29/25: 1. No acute intracranial abnormality. 2. No significant change from 02/10/2025 MRI head, 09/16/2024: Unremarkable noncontrast MRI brain Past Medical History Obesity, atrial fibrillation, seizure disorder, obstructive sleep apnea, not able to tolerate CPAP Past Surgical History None Family History: Patient reports no known family medical history. Family History Hypertension, diabetes Social History The patient denies a history of alcohol or drug abuse (ER note 09/15/24: Opiate dependence) Allergies: Coded Allergies: Codeine (Unverified Allergy, Unknown, 07/21/24) Ibuprofen (Unverified Allergy, Unknown, 07/21/24) Home Meds Reported Medications Lacosamide (Vimpat) 50 Mg Tab, 50 MG PO BID for 30 Days, #60 TAB 1 Refill 08/29/24 Current Medications Current Medications Medications (Trade) Dose Ordered Sig/Daly Route PRN Reason Start Time Stop Time Status Last Admin Lacosamide (Vimpat) 50 mg BID PO 06/25/25 22:00 06/25/25 16:19 DC Lacosamide (Vimpat) 50 mg BID PO 06/25/25 16:30 06/25/25 17:11 Midazolam HCl (Versed Injection) 5 mg ONCE PRN IV Breakthrough seizure 06/25/25 17:30 06/25/25 18:35 Nitroglycerin (Ntrostat Sublingual) 0.4 mg Q5MINP PRN SL FOR CHEST PAIN 06/25/25 18:45 Morphine Sulfate 2 mg Q30M PRN IV FOR CHEST PAIN 06/25/25 18:45 Hold Levetiracetam 100 ml @ 400 mls/hr BID IV 06/25/25 18:45 06/25/25 19:00 Review of Systems As above, the other systems are negative Vital Signs Vital Signs Date Time Temp Pulse Resp B/P (MAP) Pulse Ox O2 Delivery O2 Flow Rate FiO2 06/25/25 19:07 72 18 133/82 (99) 95 06/25/25 14:00 Room Air* 0 21 06/25/25 13:44 97.9 97.9 Physical Exam GENERAL EXAM: General: the patient is well developed and nourished. No acute distress. HEENT: Normocephalic except for bruises in the face, neck is supple, no carotid bruits. No mass RESPIRATORY: Normal respiratory effort with symmetrical lung expansion. Lungs clear to auscultation. CARDIOVASCULAR: Regular rate and rhythm with no murmurs. S1, S2. ABDOMEN: Soft, nontender, normal bowel sound NEUROLOGICAL: MENTAL STATUS: Awake and alert. Oriented to person, place, time and general circumstances. Able to give personal history SPEECH, LANGUAGE, HIGHER CORTICAL FUNCTION: no aphasia or dysathria. CRANIAL NERVES: #2: Intact visual pino to confrontation. The optic discs were sharp #3,4,6: Pupils are equal, round and reactive. EOMs full and conjugate. No nystagmus. #5: Facial sensation intact in all three divisions bilaterally. Mandibular strength intact. #7: Facial muscles symmetrical and strength intact. #8: Hearing grossly normal to voice. #9,10: Uvula and soft palate rise in the midline. Swallow and voice are normal. #11: Trapezius and sternomastoid strength intact bilaterally. #12: Tongue midline. No fasciculations or atrophy. SENSATION: Sensation to touch and pinprick is normal. MOTOR: Normal tone in the upper and lower extremity. Normal muscle bulk. No fasciculations. No abnormal movements or posturing. Muscle strength of the major groups in the upper extremities is 5/5. Muscle strength of the major groups in the lower extremities is 5/5. REFLEXES: Deep tendon reflexes normal and symmetrical. No pathological reflexes. CEREBELLAR/COORDINATION: Finger to nose is normal bilaterally. GAIT/STATION: deferred. Labs/Diagnostic Data Labs Test 06/25/25 16:42 Range/Units White Blood Count 10.4 4.4-10.8 10^3/uL Red Blood Count 4.92 4.5-5.90 10^6/uL Hemoglobin 11.9 L 13.5-17.5 g/dL Hematocrit 37.0 L 41.0-53.0 % Mean Corpuscular Volume 75.3 L 80.0-100.0 fL Mean Corpuscular Hemoglobin 24.2 L 28.0-32.0 pg Mean Corpuscular Hemoglobin Concent 32.2 32.0-36.0 g/dL Red Cell Distribution Width 19.5 H 11.8-14.3 % Platelet Count 198 140-450 10^3/uL Mean Platelet Volume 8.0 6.9-10.8 fL Neutrophils (%) (Auto) 78.4 37.0-80.0 % Lymphocytes (%) (Auto) 10.3 10.0-50.0 % Monocytes (%) (Auto) 8.3 0.0-12.0 % Eosinophils (%) (Auto) 2.2 0.0-7.0 % Basophils (%) (Auto) 0.8 0.0-2.0 % Neutrophils # (Auto) 8.1 1.6-8.6 10 ^3/uL Lymphocytes # (Auto) 1.1 0.4-5.4 10 ^3/uL Monocytes # (Auto) 0.9 0-1.3 10 ^3/uL Eosinophils # (Auto) 0.2 0-0.8 10 ^3/uL Basophils # (Auto) 0.1 0-0.2 10 ^3/uL Nucleated Red Blood Cells 0.1 % Sodium Level 142 136-145 mmol/L Potassium Level 4.9 3.5-5.1 mmol/L Chloride Level 107 98-107 mmol/L Carbon Dioxide Level 25 20-31 mmol/L Anion Gap 10 5-15 Blood Urea Nitrogen 18 9-23 mg/dL Creatinine 1.47 H 0.700-1.30 mg/dL Glomerular Filtration Rate Calc 57 >90 mL/min BUN/Creatinine Ratio 12.2 10.0-20.0 Serum Glucose 93 74-106 mg/dL Calcium Level 9.3 8.7-10.4 mg/dL Assessment Grand mal seizure Partial complex seizure Plan/Recommendation Monitoring Supportive treatment Telemetry Keppra 1500 mg twice a day Lamictal 250mg Bid Vimpat 200 mg b.i.d. Ativan for seizure breakthrough Okay to discharge from neurologic point of view Follow up with his doctors, including neurologist on discharge Resume his home seizure medication after discharge SLOAN Prognosis: Poor This medical document was created using an electronic medical record system with OLX dictation system. Although this document has been carefully reviewed, there may still be some phonetic and typographical errors. These areas are purely typographical due to imperfections of the software programs, and do not reflect any compromise in the patient's medical care Plan discussed with: Patient, Other ALEXX SINGER MD Jun 25, 2025 21:18
[2025-06-25] MEDS ORDERED: LACOSAMIDE 50 MG TAB PO SCH (22:00)
[2025-06-25] MEDS: lamoTRIgine 100 MG TAB PO ONE (23:03)
[2025-06-25 23:55] LABS: Urine Protein, UAD 1+ (Negative)
[2025-06-26 00:03] LABS: Amphetamine Screen, Urine Neg (NEGATIVE); Barbiturate Scree,Urine Neg (NEGATIVE); Benzodiazephine Screen, Urine Pos (NEGATIVE); Cannabinoid Screen, Urine Neg (NEGATIVE); Cocaine Screen, Urine Neg (NEGATIVE); Opiate Scree,Urine Neg (NEGATIVE); Phencyclidine Screen, Urine Neg (NEGATIVE)
[2025-06-26 07:14] LABS: Albumin 3.8 g/dL (3.2-4.8); Alkaline Phosphatase 58 U/L (46-116); Anion Gap 8 (5-15); BUN/Creatinine Ratio 12.9 (10.0-20.0); Blood Urea Nitrogen 16 mg/dL (9-23); Calcium 9.1 mg/dL (8.7-10.4); Carbon Dioxide 25 mmol/L (20-31); Glucose 96 mg/dL (74-106); Nucleated Red Blood Cells % 0.0 %; Potassium 4.5 mmol/L (3.5-5.1); Sodium 141 mmol/L (136-145); Total Protein 7.0 g/dL (5.7-8.2)
[2025-06-26 07:15] LABS: Bilirubin, Total 0.4 mg/dL (0.2-1.0)
[2025-06-26 07:16] LABS: Hematocrit 37.8 % (41.0-53.0); Hemoglobin 12.1 g/dL (13.5-17.5); Mean Corpuscular Hemoglobin 24.1 pg (28.0-32.0); Mean Corpuscular Volume 75.6 fL (80.0-100.0)
[2025-06-26 07:17] LABS: Alanine Aminotransferase 44 U/L (7-40); Chloride 108 mmol/L (98-107)
[2025-06-26 07:35] VITALS: BP 132/77; PULSE 85; RESP 20; TEMP 98.1; O2SAT 96
[2025-06-26] MEDS: levETIRAcetam 500 MG TAB PO SCH (08:08)
[2025-06-26] MEDS: lamoTRIgine 100 MG TAB PO SCH (08:09)
--- NOTE | 2025-06-26 08:22 | DVHDS2 ---
New Physician D'charge PN Admitting Diagnosis Admitting Diagnosis breakthrough seizure Discharge Diagnosis seizures Operations or Procedures none Reason(s) For Hospitalization Surgery Hospital Course 50 M with hx of seizure D/O on epilepsy medication at home who comes to ER after breakthrough seizure at home as well as seizure activity in the ER. He was given ativan IV and initially was post ictal. He was had multiple ER visits for seizures and a past history of medication noncompliance. Nonetheless he was admitted and neurology was consulted, He was loaded with IV keppra and started on PO keppra, lamictal and licosamide. Head CT showed no acute findings. Neurology saw him and cleared him for DC home and to resume his PO seizure meds at home. Otherwise patient is ow awake and alert back to baseline and eating. He has been cleared by neuro and thus will dc home, All his seizure meds will be refilled and sent to his pharmacy electronically so he can continue his seizure meds at home, [facility] to arrange for all outpt follow up Treatment Plan Discharge Condition of Discharge Good Disposition Home Discharge Instructions Diet: Cardiac 2g Na,low cholest Activity: No Restrictions, As Tolerated Medications: see med sheet Follow Up Care Follow Up/Referral: PCP NEURO Discharge Statement: "Patient was advised to return to the ER or call 911 if any headaches, dizziness, shortness of breath, chest pain, abdominal pain, bleeding, fevers, or worsening of medical condition. Patient was counseled about treatment plan, medications, possible side effects, patientverbalized understanding. All questions were answered to the best of my ability. This discharge took greater then 30 minutes in planning, reviewing documentation, counseling the patient, and discussing with other team members." GAURAV HANCOCK MD Jun 26, 2025 08:21
[2025-06-26] MEDS ORDERED: KEP500T PO (08:23)
[2025-06-26] MEDS ORDERED: LAM100T PO (08:23)
== END 2025-06-26 08:18 | disposition home or self-care (01) | DRG 101 ==
LOC: ER 13:05 → EDBD 13:05 → OVERFLOW 18:36
PROVIDERS: ADMIT Student in an Organized Health Care Education/Training Program; ATTEND Student in an Organized Health Care Education/Training Program
DX: G40.409 Other generalized epilepsy and epileptic syndromes, not intractable, without status epilepticus (principal); E66.9 Obesity, unspecified; Z79.01 Long term (current) use of anticoagulants; I10 Essential (primary) hypertension; G40.209 Localization-related (focal) (partial) symptomatic epilepsy and epileptic syndromes with complex partial seizures, not intractable, without status epilepticus; Z68.42 Body mass index [BMI] 45.0-49.9, adult; I48.91 Unspecified atrial fibrillation; Z91.148 Patient's other noncompliance with medication regimen for other reason; Z83.3 Family history of diabetes mellitus; Z82.49 Family history of ischemic heart disease and other diseases of the circulatory system; Z79.899 Other long term (current) drug therapy; G47.33 Obstructive sleep apnea (adult) (pediatric)
CPT/HCPCS: 36415; 70450; 71045; 80048; 80053; 80307; 81001; 85025; 96365; 96375; G0378; J2250

== ENCOUNTER 2025-07-17 20:05 | Emergency (ER) | payer OTHER ==
[~2025-07-17] VITALS: Ht 172.7 cm; Wt 136.3 kg
[~2025-07-17 20:05] MED LIST changes: +KEP500T PO; +LAM100T PO
--- NOTE | 2025-07-17 20:14 | ED.PDOC ---
History of Present Illness HPI Comments This is a 50-year-old male who comes in with chief complaint of seizure today. The patient had a tonic-clonic seizure lasting approximately 1 minute in his chair today. The patient was at home and is father witnessed the seizure. The last seizure that the patient had was approximately one month ago. He usually typically has seizures once a month. There has been no nausea, vomiting or diarrhea. Upon arrival, the patient is somewhat postictal. The patient denies any other complaints at this time. Time Seen by MD: 20:09 Primary Care Provider: UNKNOWN Reviewed Notes: Nurses Notes, Coin Teller Notes, Medications, Allergies (Allergies listed above) Allergies: Coded Allergies: Codeine (Unverified Allergy, Unknown, 07/21/24) Ibuprofen (Unverified Allergy, Unknown, 07/21/24) Home Meds Active Scripts Levetiracetam (KEPPRA TABLET) 500 Mg Tb, 1500 MG PO BID for 30 Days, #180 TAB 2 Refills Prov:GAURAV HANCOCK MD 06/26/25 Lamotrigine (LAMICTAL) 100 Mg Tab, 250 MG PO Q12HR for 30 Days, #150 TAB 2 Refills Prov:GAURAV HANCOCK MD 06/26/25 Reported Medications Lacosamide (Vimpat) 50 Mg Tab, 50 MG PO BID for 30 Days, #60 TAB 1 Refill 08/29/24 Information Source: Patient, Emergency Med Personnel Mode of Arrival: EMS Severity: Moderate Timing: Minutes Duration: Intermittent Prehospital treatment: Accucheck (105), Helicopter Engineer, IVF Associated signs and symptoms Mild headache as well as a seizure activity Past Medical History PAST MEDICAL HISTORY: AFIB, CKF, HTN, Seizures Past Medical History (Other): Neuropathy Surgical History: Denies all surgeries Family History Family History: Reviewed,noncontributory to illness Social History Smoker: Non-Smoker Alcohol: Denies ETOH Use Drugs: Denies Drug Use Lives In: Home Constitutional: denies: chills, diaphoresis, fatigue, fever, malaise, sweats, weakness, others EENTM: denies: blurred vision, double vision, ear bleeding, ear discharge, ear drainage, ear pain, ear ringing, eye pain, eye redness, hearing loss, mouth pain, mouth swelling, nasal discharge, nose bleeding, nose congestion, nose pain, photophobia, tearing, throat pain, throat swelling, voice changes, others Respiratory: denies: cough, hemoptysis, orthopnea, SOB at rest, shortness of breath, SOB with excertion, stridor, wheezing, others Cardiovascular: denies: chest pain, dizzy spells, diaphoresis, Dyspnea on exertion, edema, irregular heart beat, left arm pain, lightheadedness, palpitations, PND, syncope, others Gastrointestinal: denies: abdomen distended, abdominal pain, blood streaked bowels, constipated, diarrhea, dysphagia, difficulty swallowing, hematemesis, melena, nausea, poor appetite, poor fluid intake, rectal bleeding, rectal pain, vomiting, others Genitourinary: denies: burning, dysuria, flank pain, frequency, hematuria, incontinence, penile discharge, penile sore, pain, testicle pain, testicle swelling, urgency, others Neurological: reports: headache, seizure; denies: dizziness, fainting, left sided numbness, left sided weakness, numbness, paresthesia, pre-existing deficit, right sided numbness, right sided weakness, speech problems, tingling, tremors, weakness, others Musculoskeletal: denies: back pain, gout, joint pain, joint swelling, muscle pain, muscle stiffness, neck pain, others Integumetry: denies: bruises, change in color, change in hair/nails, dryness, laceration, lesions, lumps, rash, wounds, others Allergic/Immunocompromised: denies: Difficulty Healing, Frequent Infections, Hives, Itching, others Hematologic/Lymphatic: denies: anemia, blood clots, easy bleeding, easy bruising, swollen glands, others Endocrine: denies: excessive hunger, excessive sweating, excessive thirst, excessive urination, flushing, intolerance to cold, intolerance to heat, unexplained weight gain, unexplained weight loss, others Psychiatric: denies: anxiety, bipolar disorder, depression, hopeless, panic disorder, schizophrenia, sleepless, suicidal, others Physical Exam General Appearance: Mild Distress, Obese HEENT: Normal ENT Inspection, Pharynx Normal, TMs Normal Neck: Full Range of Motion, Non-Tender, Normal, Normal Inspection Respiratory: Chest Non-Tender, Lungs Clear, No Accessory Muscle Use, No Respiratory Distress, Normal Breath Sounds Cardiovascular: No Edema, No JVD, No Murmur, No Gallop, Normal Peripheral Pulses, Regular Rate/Rhythm Breast Exam: Deferred Gastrointestinal: No Organomegaly, Non Tender, No Pulsatile Mass, Normal Bowel Sounds, Soft Genitalia: Deferred Pelvic: Deferred Rectal: Deferred Extremities: No calf tenderness, Normal capillary refill, Normal inspection, Normal range of motion, Non-tender, No pedal edema Musculoskeletal : Apperance: Normal Neurologic: airfield defence guard II-XII nml as Tested, Motor Weakness, Normal Affect, Normal Mood, No Sensory Deficits, Other (The patient is postictal) Cerebellar Function: Normal Reflexes: Normal Skin: Dry, Normal Color, Warm Lymphatic: No Adenopathy Was a procedure done? Was a procedure done?: No Differential Dx Considerations may include: Seizure, activity generalized weakness, electrolyte imbalance X-Ray, Labs, Meds, VS Vital Signs Date Time Temp Pulse Resp B/P (MAP) Pulse Ox O2 Delivery O2 Flow Rate FiO2 07/17/25 20:12 98.6 88 14 155/96 99 98.6 Lab Test 07/17/25 20:18 Range/Units White Blood Count 10.0 4.4-10.8 10^3/uL Red Blood Count 5.34 4.5-5.90 10^6/uL Hemoglobin 12.9 L 13.5-17.5 g/dL Hematocrit 40.8 L 41.0-53.0 % Mean Corpuscular Volume 76.4 L 80.0-100.0 fL Mean Corpuscular Hemoglobin 24.1 L 28.0-32.0 pg Mean Corpuscular Hemoglobin Concent 31.5 L 32.0-36.0 g/dL Red Cell Distribution Width 19.0 H 11.8-14.3 % Platelet Count 221 140-450 10^3/uL Mean Platelet Volume 8.1 6.9-10.8 fL Neutrophils (%) (Auto) 78.6 37.0-80.0 % Lymphocytes (%) (Auto) 12.7 10.0-50.0 % Monocytes (%) (Auto) 6.6 0.0-12.0 % Eosinophils (%) (Auto) 1.6 0.0-7.0 % Basophils (%) (Auto) 0.5 0.0-2.0 % Neutrophils # (Auto) 7.9 1.6-8.6 10 ^3/uL Lymphocytes # (Auto) 1.3 0.4-5.4 10 ^3/uL Monocytes # (Auto) 0.7 0-1.3 10 ^3/uL Eosinophils # (Auto) 0.2 0-0.8 10 ^3/uL Basophils # (Auto) 0.1 0-0.2 10 ^3/uL Nucleated Red Blood Cells 0.0 % Sodium Level 139 136-145 mmol/L Potassium Level 4.5 3.5-5.1 mmol/L Chloride Level 107 98-107 mmol/L Carbon Dioxide Level 21 20-31 mmol/L Anion Gap 11 5-15 Blood Urea Nitrogen 12 9-23 mg/dL Creatinine 1.43 H 0.700-1.30 mg/dL Glomerular Filtration Rate Calc 59 >90 mL/min BUN/Creatinine Ratio 8.4 L 10.0-20.0 Serum Glucose 112 H 74-106 mg/dL Calcium Level 9.6 8.7-10.4 mg/dL Current Medications Medications (Trade) Dose Ordered Sig/Daly Route Start Time Stop Time Status Last Admin Levetiracetam 100 ml @ 400 mls/hr ONCE ONCE IV 07/17/25 20:15 07/17/25 20:29 DC 07/17/25 20:21 IV Hep-Lock was established. Seizure precautions were placed on this patient The patient is being given Keppra 1 g IV piggyback The patient has had no seizure activity The patient is being discharged The patient will follow up with the primary care doctor The patient's CBC and chemistry panel are within normal limits except for creatinine of 1.43 The patient is able to answer all questions appropriately Time of 1ST Reevaluation: 20:13 Reevaluation 1ST: Unchanged Patient Education/Counseling: Diagnosis, Treatment, Prognosis Family Education/Counseling: No Family Present SEPSIS Sepsis Screen Physician Orders Pulse Oximetry (07/17/25 20:09) Blood Pressure (07/17/25 20:09) Heplock Iv (07/17/25 20:09) Seizure Precautions (07/17/25 20:09) Helicopter Engineer (07/17/25 20:09) Vital Signs Date Time Temp Pulse Resp B/P (MAP) Pulse Ox O2 Delivery O2 Flow Rate FiO2 07/17/25 20:12 98.6 88 14 155/96 99 98.6 Laboratory Tests Test 07/17/25 20:18 White Blood Count 10.0 10^3/uL (4.4-10.8) Medications Medications Dose Ordered Sig/Daly Route Start Time Stop Time Status Last Admin Dose Admin Levetiracetam 100 ml @ 400 mls/hr ONCE ONCE IV 07/17/25 20:15 07/17/25 20:29 DC 07/17/25 20:21 Departure 1 Departure Time of Disposition: 21:04 Impression: Primary Impression: Breakthrough seizure Disposition: HOME / SELF CARE / HOMELESS Condition: Fair Discharged With: Self Critical Care Note Critical Care Time?: No Stability Stability form required: No Heart Score Heart Score: Heart Score Response (Comments) Value History N/A 0 EKG N/A 0 Age N/A 0 Risk Factors N/A 0 Troponin N/A 0 Total 0 JUAREZ ANDREWS MD Jul 17, 2025 20:14
[2025-07-17] MEDS: levETIRAcetam 1000 mg/100ml 100 ML IV ONE (20:21)
[2025-07-17 20:36] LABS: Hematocrit 40.8 % (41.0-53.0); Hemoglobin 12.9 g/dL (13.5-17.5); Mean Corpuscular Hemoglobin 24.1 pg (28.0-32.0); Mean Corpuscular Volume 76.4 fL (80.0-100.0); Nucleated Red Blood Cells % 0.0 %
[2025-07-17 20:42] LABS: Potassium 4.5 mmol/L (3.5-5.1); Sodium 139 mmol/L (136-145)
[2025-07-17 20:43] LABS: Anion Gap 11 (5-15); Carbon Dioxide 21 mmol/L (20-31)
[2025-07-17 20:44] LABS: Calcium 9.6 mg/dL (8.7-10.4)
[2025-07-17 20:49] LABS: BUN/Creatinine Ratio 8.4 (10.0-20.0); Blood Urea Nitrogen 12 mg/dL (9-23)
[2025-07-17 21:01] LABS: Chloride 107 mmol/L (98-107); Glucose 112 mg/dL (74-106)
[2025-07-18] MEDS: LORazepam 2MG/ML-1ML VIAL ONE (00:03)
[2025-07-18] MEDS: LORazepam 2MG/ML-1ML VIAL IV ONE (00:04)
[2025-07-18 07:30] VITALS: O2SAT 95
[2025-07-18] MEDS: lamoTRIgine 100 MG TAB PO ONE (13:40)
[2025-07-18] MEDS: levETIRAcetam 500 MG TAB PO ONE (13:40)
[2025-07-18 17:31] VITALS: BP 126/76; PULSE 79; RESP 20; TEMP 97.9; O2SAT 95
== END 2025-07-18 17:53 | disposition home or self-care (01) ==
LOC: ER 20:05 → EDBD 20:05 → ER 07-18 17:40
DX: G40.909 Epilepsy, unspecified, not intractable, without status epilepticus (principal); I10 Essential (primary) hypertension; I48.91 Unspecified atrial fibrillation; Z79.899 Other long term (current) drug therapy; Z88.5 Allergy status to narcotic agent; Z88.6 Allergy status to analgesic agent
CPT/HCPCS: 36415; 80048; 85025; 96374; 96375; 99285; J1953; J2060